=== PATIENT | female | born 1955 | race Caucasian/White ===

== ENCOUNTER 2019-08-20 12:49 | Emergency (ER) | payer MEDICARE, MEDICAID, SELFPAY ==
[2019-08-20 12:55] VITALS: BP 93/57; PULSE 84; RESP 16; TEMP 36.9; O2SAT 94; BMI 25.0
--- NOTE | 2019-08-20 13:09 | XR_ITS ---
WS: [id number] XR chest 1V portable [id number] REASON FOR EXAM: low b/p FINDINGS: Comparisons were made to October 07, 2014. In the right lung base there is evidence again of a calcified density consistent with a hamartoma abhinav radha benign granuloma unchanged since the previous exam. The heart and mediastinal interfaces were normal. Arteriosclerotic changes are seen. Lung frey are hyper aerated. XR/XR chest 1V portable [id number] IMPRESSION: Benign granuloma versus hamartoma right lower lung Negative chest for active pathology.
--- NOTE | 2019-08-20 14:29 | ED_ITS ---
Entered by Steven Antunez LPN, acting as scribe for Rd Aj DO HPI - Dizziness General: Chief Complaint: Dizziness Stated Complaint: low bp Time Seen by Provider: 08/20/19 14:29 Source: patient Mode of arrival: ambulatory (POV) Limitations: no limitations History of Present Illness: HPI Narrative: 64 yo female presents stating this am she developed a pain in her left neck, her mouth became dry, and she became dizzy, then she noted she had low BP. This started about 1030 this am. She drank a lot of water and Gatorade prior to coming to ER trying to improve symptoms. She is currently on Lisinopril 10mg for HTN, was told when BP is low to stop this for a few days. She has not stopped this recently. She does not monitor her BP regularly. She reports the last time she had symptoms like this she had been fasting for a test and her systolic BP was down to 88. During exam BP is 125/69. She denies any chest pain or sob. Associated symptoms: Denies chest pain, palpitations or syncope Review of Systems General: Reports: 10 or more systems reviewed and unremarkable except in HPI and below ENMT: Reports: dry mouth Card: Reports: lightheadedness (dizziness, low BP); Denies: chest pain, palpitations or syncope Musc: Reports: neck pain (left neck ) Neuro: Reports: dizziness PFSH ED PFSH: Social History Smoking and tobacco status: current every day smoker Physical Exam Const: COMMON NORMALS: no apparent distress, average body habitus, oriented x3, no limitations, healthy appearing, alert and well nourished HENMT: COMMON NORMALS: normocephalic, head/scalp atraumatic, hearing grossly normal bilaterally, external ears normal, EAC's normal, TM's normal bilaterally, external nose normal, nasal mucous membranes and turbinates normal, moist oral mucous membranes, oropharynx normal, dentition normal and gingiva normal HEAD & SCALP: normocephalic and atraumatic NOSE: external nose normal and nasal mucous membranes and turbinates normal EXTERNAL EAR: Yes external ears normal EXTERNAL AUDITORY CANAL: EAC's normal TYMPANIC MEMBRANE: TM's normal bilaterally Eye: COMMON NORMALS: PERRL, EOMs intact bilaterally, conjunctivae normal, no scleral icterus, no papilledema, normal visual frey by confrontation and fundi normal bilaterally CONJUNCTIVA: Yes conjunctivae normal PUPIL: Yes PERRL DIRECT OPHTHALMOSCOPY: Yes no papilledema and Yes fundi normal bilaterally Neck/C-Spine: COMMON NORMALS: full ROM, no lymphadenopathy, supple, no meningeal signs, no JVD, thyroid normal and no carotid bruits THYROID: thyroid normal Chest: COMMONS NORMALS: inspection of chest normal and palpation of chest normal Resp: COMMON NORMALS: normal respiratory effort, no retractions, no use of accessory muscles, clear to auscultation bilaterally and percussion normal AUSCULTATION: clear to auscultation bilaterally PERCUSSION: percussion normal Cardio: COMMON NORMALS: no JVD, regular rate, regular rhythm, S1 normal heart sound, S2 normal heart sound, no gallops, no clicks, no murmurs, no rub and peripheral pulses 2+ throughout RATE: regular rate RHYTHM: regular rhythm HEART SOUNDS: S1 normal and S2 normal PERIPHERAL PULSES: pulses 2+ throughout GI: COMMON NORMALS: normal to inspection, nondistended, normoactive bowel sounds, soft to palpation, non-tender, no hepatosplenomegaly, no masses and no bruits PALPATION: Yes soft and Yes no hepatosplenomegaly : COMMON NORMALS: Yes no CVA tenderness and Yes external appearance normal BLADDER/KIDNEY EXAM: Yes no CVA tenderness Back/Pelvis: COMMON NORMALS: no CVA tenderness, thoracic and lumbar spine normal to inspection, no thoracic nor lumbar tenderness, thoraco-lumbar ROM normal and straight leg raise negative bilaterally Extremity: COMMON NORMALS: normal to inspection, full ROM, normal capillary refill, no joint enlargement, no clubbing, cyanosis or edema, no calf tenderness and no pedal edema Neuro: COMMON NORMALS: oriented x3 SENSORIUM/ORIENTATION: Yes alert MENINGEAL SIGNS: Yes no meningeal signs Skin: COMMON NORMALS: no rashes or lesions noted, no wounds, skin turgor normal, no jaundice, no petechiae and no mottling GENERAL SKIN EXAM: no rashes or lesions noted and turgor normal Course ED course: 1447: Advised pt take Lisinopril 5mg daily at this time. Counseled not to stop her BP med abruptly and use it as needed, she needs to discuss med changes with her PCP when she is having issues with her BP. Vital Signs: Vital signs: Vital Signs Temperature 98.4 F 08/20/19 12:55 Pulse Rate 78 08/20/19 16:29 Respiratory Rate 16 08/20/19 12:55 Blood Pressure 117/70 08/20/19 16:29 Pulse Oximetry 98 08/20/19 16:29 MDM - Dizziness Lab Data: Attestation: I reviewed the patient's lab results. Labs: Lab Results 08/20/19 08/20/19 08/20/19 Range/Units 14:12 14:12 14:12 WBC 9.6 (4.0-10.0) 10^3/ uL RBC 4.39 (4.1-5.3) 10^6/u L Hgb 12.5 (11.5-15.3) g/dL Hct 38.7 (37.0-47.0) % MCV 88.2 (81-99) fL MCH 28.5 (28.0-34.0) pg MCHC 32.3 (30.0-36.0) g/dL RDW 12.6 (12.1-15.1) % Plt Count 267 (130-400) 10^3/c mm MPV 9.6 (7.4-10.4) fL Neut % (Auto) 79.4 % Lymph % (Auto) 13.2 % [place] % (Auto) 5.0 % Eos % (Auto) 1.5 % Baso % (Auto) 0.6 % Neut # (Auto) 7.6 (1.8-7.7) 10^3/u L Lymph # (Auto) 1.3 (0.8-4.8) 10^3/u L [place] # (Auto) 0.5 (0.2-0.9) 10^3/u L Eos # (Auto) 0.1 (0.0-0.8) 10^3/u L Baso # (Auto) 0.1 (0.0-0.1) 10^3/u L Nucleated RBC % (a uto) 0 % Nucleated RBCs # 0.0 /100WBC Sodium 135 L (136-145) mmol/L Potassium 4.2 (3.5-5.1) mmol/L Chloride 98 (98-107) mmol/L Carbon Dioxide 25 (22-29) mmol/L Anion Gap 16.2 (5-19) BUN 11 (8-23) mg/dL Creatinine 0.8 (0.5-0.9) mg/dL GFR Calculation 71.8 L (90-130) mL/min Glucose 113 (65-115) mg/dL Lactate (0.5-2.2) mmol/L Calcium 9.8 (8.5-10.5) mg/dL Total Bilirubin 0.3 (0.15-1.2) mg/dL AST 14 (0-32) U/L ALT 11 (0-33) U/L Alkaline Phosphata se 73 (35-105) IU/L Troponin T Baselin e 6 (0-10) ng/mL Troponin T 120 Min fatoumata (0-10) ng/mL Total Protein 7.0 (6.6-8.7) g/dL Albumin 4.2 (3.5-5.2) g/dL Globulin 2.8 (1.3-4.6) g/dL 08/20/19 08/20/19 Range/Units 15:14 16:17 WBC (4.0-10.0) 10^3/ uL RBC (4.1-5.3) 10^6/u L Hgb (11.5-15.3) g/dL Hct (37.0-47.0) % MCV (81-99) fL MCH (28.0-34.0) pg MCHC (30.0-36.0) g/dL RDW (12.1-15.1) % Plt Count (130-400) 10^3/c mm MPV (7.4-10.4) fL Neut % (Auto) % Lymph % (Auto) % [place] % (Auto) % Eos % (Auto) % Baso % (Auto) % Neut # (Auto) (1.8-7.7) 10^3/u L Lymph # (Auto) (0.8-4.8) 10^3/u L [place] # (Auto) (0.2-0.9) 10^3/u L Eos # (Auto) (0.0-0.8) 10^3/u L Baso # (Auto) (0.0-0.1) 10^3/u L Nucleated RBC % (a uto) % Nucleated RBCs # /100WBC Sodium (136-145) mmol/L Potassium (3.5-5.1) mmol/L Chloride (98-107) mmol/L Carbon Dioxide (22-29) mmol/L Anion Gap (5-19) BUN (8-23) mg/dL Creatinine (0.5-0.9) mg/dL GFR Calculation (90-130) mL/min Glucose (65-115) mg/dL Lactate 0.7 (0.5-2.2) mmol/L Calcium (8.5-10.5) mg/dL Total Bilirubin (0.15-1.2) mg/dL AST (0-32) U/L ALT (0-33) U/L Alkaline Phosphata se (35-105) IU/L Troponin T Baselin e (0-10) ng/mL Troponin T 120 Min fatoumata 6.00 (0-10) ng/mL Total Protein (6.6-8.7) g/dL Albumin (3.5-5.2) g/dL Globulin (1.3-4.6) g/dL Imaging Data^: CXR: Radiologist's impression: IMPRESSION: Benign granuloma versus hamartoma right lower lung Negative chest for active pathology. Dictated By:Brant Hernandez DO EKG Data^: EKG 1: Attestation: I personally reviewed and interpreted this EKG as follows: Interpretation: 1305 NSR at 84bpm Normal EKG. Discharge Plan Discharge Patient Disposition: Home, Self-Care Clinical Impression: Benign paroxysmal positional vertigo Qualifiers: Laterality: bilateral Qualified Code(s): H81.13 - Benign paroxysmal vertigo, bilateral Condition: Stable Prescriptions: No Action aspirin 325 mg Tablet 325 mg PO PRN RF: 0 ibuprofen 800 mg tablet 800 mg PO TID PRN (Reason: Pain) RF: 0 famotidine 40 mg tablet 40 mg PO DAILY RF: 0 tramadol 50 mg tablet 50 - 100 mg PO BID PRN (Reason: Pain) RF: 0 potassium chloride 20 mEq/15 mL liquid See Rx Instructions .ROUTE .COMPLEX RF: 0 benzonatate 100 mg capsule 100 mg PO TID PRN (Reason: Cough) RF: 0 lisinopril-hydrochlorothiazide 10-12.5 mg tablet 1 tab PO DAILY RF: 0 albuterol sulfate 90 mcg/actuation HFA aerosol inhaler 2 puff INHALATION Q4H PRN (Reason: Wheezing) RF: 0 Incruse Ellipta 62.5 mcg/actuation blister with device 1 inh INHALATION DAILY RF: 0 Discharge Orders: Discharge Order (Routine); Ordered 08/20/19 Ordered By: Rd Aj Referrals: Delaney Patricia [Primary Care Provider] - Coding Level of Care Code ED First Aid Attendant for Chg Fwd Exam Comprehensive The documentation recorded by the Tulio lee Dani Elizabeth, LPN, accurately reflects the service I personally performed and the decisions made by Madai villagomez Donald P, Aug 20, 2019 12:49
[2019-08-20 14:41] LABS: Basophils # 0.1 10^3/uL (0.0-0.1); Basophils % 0.6 %; Eosinophils # 0.1 10^3/uL (0.0-0.8); Eosinophils % 1.5 %; Hematocrit 38.7 % (37.0-47.0); Hemoglobin 12.5 g/dL (11.5-15.3); Lymphocytes # 1.3 10^3/uL (0.8-4.8); Lymphocytes % 13.2 %; Mean Corpuscular HGB Conc 32.3 g/dL (30.0-36.0); Mean Corpuscular Hemoglobin 28.5 pg (28.0-34.0); Mean Corpuscular Volume 88.2 fL (81-99); Mean Platelet Volume 9.6 fL (7.4-10.4); Monocytes # 0.5 10^3/uL (0.2-0.9); Neutrophils # 7.6 10^3/uL (1.8-7.7); Neutrophils % 79.4 %; Nucleated Red Blood Cells % 0 %; Platelet Count 267 10^3/cmm (130-400); Red Blood Count 4.39 10^6/uL (4.1-5.3); Red Cell Distribution Width 12.6 % (12.1-15.1); White Blood Count 9.6 10^3/uL (4.0-10.0)
--- NOTE | 2019-08-20 14:41 | PC.NURSE ---
Orthostatic vitals: Supine BP 96/59 HR 86, Seated: BP 103/66 HR 84, Standing BP 94/65 HR 89.
--- NOTE | 2019-08-20 14:43 | PC.NURSE ---
PHYSICAL ASSESSMENT Chief Complaint: Dizzy GENERAL / NEURO / PSYCH: Alert and oriented x 4 EVY COMA SCORE: 15 HEENT: No facial asymmetry noted. Mucous membranes are pink. RESPIRATORY: Denies complaints CVS: Capillary refill less than 2 seconds. Pulses within normal limits. GI / : Abdomen soft and nontender and normal bowel sounds. SKIN: Skin intact. Skin is warm and dry. Normal skin turgor. - Patient resting at this time. No needs.
[2019-08-20 15:00] LABS: Alanine Aminotransferase 11 U/L (0-33); Albumin Level 4.2 g/dL (3.5-5.2); Alkaline Phosphatase 73 IU/L (35-105); Anion Gap 16.2 (5-19); Aspartate Amino Transferase 14 U/L (0-32); Blood Urea Nitrogen 11 mg/dL (8-23); Calcium 9.8 mg/dL (8.5-10.5); Carbon Dioxide 25 mmol/L (22-29); Chloride 98 mmol/L (98-107); Globulin 2.8 g/dL (1.3-4.6); Glomerular Filtration Rate 71.8 mL/min (90-130); Glucose 113 mg/dL (65-115); Potassium 4.2 mmol/L (3.5-5.1); Sodium 135 mmol/L (136-145); Total Bilirubin 0.3 mg/dL (0.15-1.2)
[2019-08-20] MEDS: sodium chloride 0.9% 1,000 ML 999 ML IV (15:18)
[2019-08-20 15:27] LABS: Troponin(5th) Baseline 6 ng/mL (0-10)
[2019-08-20 15:32] LABS: Lactate (Lactic Acid level) 0.7 mmol/L (0.5-2.2)
[2019-08-20 16:29] VITALS: BP 117/70; PULSE 78; O2SAT 98
[2019-08-20 16:42] LABS: Troponin 5 2HR Delta 0 ABS# (0-10)
[2019-08-20 16:58] VITALS: BP 145/75; PULSE 75; RESP 16; O2SAT 98
== END 2019-08-20 16:59 | disposition home or self-care (01) ==
PROVIDERS: Nurse Practitioner Family; Emergency Provider Family Medicine; Family Provider Family Medicine; PCP Family Medicine
DX: H81.13 Benign paroxysmal vertigo, bilateral (principal); I10 Essential (primary) hypertension; F17.200 Nicotine dependence, unspecified, uncomplicated
CPT/HCPCS: 36415; 71045; 80053; 83605; 84484; 85025; 96360; 99282; 99284; J7030

== ENCOUNTER 2019-09-09 10:35 | Inpatient (IN) | payer MEDICARE, MEDICAID, SELFPAY ==
[2019-09-09] VITALS (28 sets, daily range): BP systolic 84–115; BP diastolic 46–75; PULSE 82–120; RESP 18–30; TEMP 36.6–36.9; O2SAT 93–100; BMI 25.8
--- NOTE | 2019-09-09 10:49 | ED_ITS ---
Entered by Diane Cha, acting as scribe for Arjun Mckeon DO HPI - SOB/Dyspnea General: Chief Complaint: Shortness of Breath/Dyspnea Stated Complaint: cough/sob/fever Time Seen by Provider: 09/09/19 10:48 Source: patient Mode of arrival: EMS Limitations: no limitations History of Present Illness: HPI Narrative: 64 yo female presents with shortnes s of breath and cough. pt states this started 2-3 days ago. pt states taking deep breaths, coughing and exertion makes this worse and nothing makes it better. pt denies any other symptoms at this time. MD elicited complaint: shortness of breath and cough Onset (ago): day(s) (2-3) Timing: constant and progressively worsening Severity: moderate Exacerbating factors: exertion, coughing and deep breaths Relieving factors: nothing Associated symptoms: Reports cough; Deny abdominal pain, chest pain, fever(s), nausea or vomiting Treatment prior to arrival: none Review of Systems General: Reports: 10 or more systems reviewed and unremarkable except in HPI and below Const: Denies: fever, chills, body aches, change in appetite, fatigue or malaise ENMT: Denies: throat pain, ear pain, nasal discharge or nasal congestion Card: Denies: chest pain or edema Resp: Reports: shortness of breath and productive cough GI: Denies: abdominal pain, nausea, vomiting, vomiting blood, coffee grounds in vomit, diarrhea, constipation, bloating, blood in stool or black tarry stool : Denies: flank pain, difficulty urinating, painful urination, urinary frequency or urinary urgency Skin/Breast: Denies: rash or itching PFS ED PFSH: Medical History (Updated 09/13/19 @ 10:36 by Arjun Mckeon DO) COPD (chronic obstructive pulmonary disease) Hypertension Tobacco abuse Surgical History (Updated 09/09/19 @ 18:26 by Vanda Bullock DO) History of appendectomy History of cataract surgery Family History (Updated 09/09/19 @ 18:26 by Vanda Bullock DO) Mother CAD (coronary artery disease) Social History (Updated 09/09/19 @ 18:27 by Vanda Bullock DO) Smoking and tobacco status: current every day smoker Alcohol intake: never Substance/Drug Use: never Physical Exam Const: COMMON NORMALS: no apparent distress GENERAL APPEARANCE: cooperative and comfortable ORIENTATION/CONSCIOUSNESS: Yes awake, Yes oriented to person, Yes oriented to place and Yes oriented to time HENMT: COMMON NORMALS: normocephalic, head/scalp atraumatic, hearing grossly normal bilaterally, external ears normal, EAC's normal, TM's normal bilaterally, nasal mucous membranes and turbinates normal, moist oral mucous membranes and oropharynx normal HEAD & SCALP: normocephalic and atraumatic NOSE: nasal mucous membranes and turbinates normal EXTERNAL EAR: Yes external ears normal EXTERNAL AUDITORY CANAL: EAC's normal TYMPANIC MEMBRANE: TM's normal bilaterally Eye: COMMON NORMALS: PERRL, EOMs intact bilaterally, conjunctivae normal and no scleral icterus CONJUNCTIVA: Yes conjunctivae normal PUPIL: Yes PERRL Neck/C-Spine: COMMON NORMALS: full ROM, no lymphadenopathy, supple and no JVD Lymph: LYMPHATIC: no lymphadenopathy noted and no lymphedema noted Cardio: COMMON NORMALS: no JVD, regular rate, regular rhythm and no murmurs RATE: regular rate RHYTHM: regular rhythm GI: COMMON NORMALS: soft to palpation and no hepatosplenomegaly AUSCULTATION: Yes normoactive bowel sounds PALPATION: Yes soft, No tender, No guarding and Yes no hepatosplenomegaly Extremity: COMMON NORMALS: normal to inspection, normal capillary refill, no clubbing, cyanosis or edema, no calf tenderness and no pedal edema Neuro: SENSORIUM/ORIENTATION: Yes oriented to person, Yes oriented to place and Yes oriented to time Skin: COMMON NORMALS: no rashes or lesions noted GENERAL SKIN EXAM: no rashes or lesions noted Course Vital Signs: Vital signs: Vital Signs Temperature 98.0 F 09/11/19 11:00 Pulse Rate 85 09/11/19 11:26 Respiratory Rate 17 09/11/19 11:26 Blood Pressure 118/80 09/11/19 11:00 Pulse Oximetry 98 09/11/19 11:26 MDM - SOB/Dyspnea MDM Narrative: Medical decision making narrative: Reviewed findings with the patient. She has a community-acquired pneumonia with exacerbation of her COPD. She will be on precautions she is being tested for COVID-19. D[address] Bullock she will assume care on the floor. Lab Data: Labs: Lab Results 09/09/19 09/09/19 09/09/19 Range/Units 10:41 10:41 11:15 WBC 17.5 H (4.0-10.0) 10^3/ uL RBC 4.51 (4.1-5.3) 10^6/u L Hgb 13.2 (11.5-15.3) g/dL Hct 40.5 (37.0-47.0) % MCV 89.8 (81-99) fL MCH 29.3 (28.0-34.0) pg MCHC 32.6 (30.0-36.0) g/dL RDW 12.6 (12.1-15.1) % Plt Count 284 (130-400) 10^3/c mm MPV 10.3 (7.4-10.4) fL Neut % (Auto) 86.1 % Lymph % (Auto) 4.7 % [place] % (Auto) 3.6 % Eos % (Auto) 4.7 % Baso % (Auto) 0.5 % Neut # (Auto) 15.1 H (1.8-7.7) 10^3/u L Lymph # (Auto) 0.8 (0.8-4.8) 10^3/u L [place] # (Auto) 0.6 (0.2-0.9) 10^3/u L Eos # (Auto) 0.8 (0.0-0.8) 10^3/u L Baso # (Auto) 0.1 (0.0-0.1) 10^3/u L Nucleated RBC % (a uto) 0 % Nucleated RBCs # 0.0 /100WBC Sodium 135 L (136-145) mmol/L Potassium 3.5 (3.5-5.1) mmol/L Chloride 96 L (98-107) mmol/L Carbon Dioxide 25 (22-29) mmol/L Anion Gap 17.5 (5-19) BUN 13 (8-23) mg/dL Creatinine 0.9 (0.5-0.9) mg/dL GFR Calculation 62.6 L (90-130) mL/min Glucose 118 H (65-115) mg/dL Calculated Osmolal ity 277 L (285-295) mOsm/k g Lactate (0.5-2.2) mmol/L Calcium 10.0 (8.5-10.5) mg/dL Total Bilirubin 0.7 (0.15-1.2) mg/dL AST 12 (0-32) U/L ALT 13 (0-33) U/L Alkaline Phosphata se 75 (35-105) IU/L Total Protein 7.1 (6.6-8.7) g/dL Albumin 3.8 (3.5-5.2) g/dL Globulin 3.3 (1.3-4.6) g/dL Urine Color Yellow (Yellow) Urine Appearance Clear (CLEAR) Urine pH 5 (5-7) Ur Specific Gravit y 1.010 (1.005-1.030) Urine Protein Neg (Negative) Urine Glucose (UA) Norm (Normal) Urine Ketones Negative (Negative) Urine Blood Neg (Negative) Urine Nitrate Negative (Negative) Urine Bilirubin Neg (NEGATIVE) Urine Urobilinogen Norm (Negative) mg/dL Ur Leukocyte Jaimie ase Negative (Negative) Nasal/Oral COVID-1 9 PCR Influenza Type A A g (Negative) POC Influenza B Ag (Negative) 09/09/19 09/09/19 09/09/19 Range/Units 11:20 12:40 13:00 WBC (4.0-10.0) 10^3/ uL RBC (4.1-5.3) 10^6/u L Hgb (11.5-15.3) g/dL Hct (37.0-47.0) % MCV (81-99) fL MCH (28.0-34.0) pg MCHC (30.0-36.0) g/dL RDW (12.1-15.1) % Plt Count (130-400) 10^3/c mm MPV (7.4-10.4) fL Neut % (Auto) % Lymph % (Auto) % [place] % (Auto) % Eos % (Auto) % Baso % (Auto) % Neut # (Auto) (1.8-7.7) 10^3/u L Lymph # (Auto) (0.8-4.8) 10^3/u L [place] # (Auto) (0.2-0.9) 10^3/u L Eos # (Auto) (0.0-0.8) 10^3/u L Baso # (Auto) (0.0-0.1) 10^3/u L Nucleated RBC % (a uto) % Nucleated RBCs # /100WBC Sodium (136-145) mmol/L Potassium (3.5-5.1) mmol/L Chloride (98-107) mmol/L Carbon Dioxide (22-29) mmol/L Anion Gap (5-19) BUN (8-23) mg/dL Creatinine (0.5-0.9) mg/dL GFR Calculation (90-130) mL/min Glucose (65-115) mg/dL Calculated Osmolal ity (285-295) mOsm/k g Lactate 1.7 (0.5-2.2) mmol/L Calcium (8.5-10.5) mg/dL Total Bilirubin (0.15-1.2) mg/dL AST (0-32) U/L ALT (0-33) U/L Alkaline Phosphata se (35-105) IU/L Total Protein (6.6-8.7) g/dL Albumin (3.5-5.2) g/dL Globulin (1.3-4.6) g/dL Urine Color (Yellow) Urine Appearance (CLEAR) Urine pH (5-7) Ur Specific Gravit y (1.005-1.030) Urine Protein (Negative) Urine Glucose (UA) (Normal) Urine Ketones (Negative) Urine Blood (Negative) Urine Nitrate (Negative) Urine Bilirubin (NEGATIVE) Urine Urobilinogen (Negative) mg/dL Ur Leukocyte Jaimie ase (Negative) Nasal/Oral COVID-1 9 PCR Not detected Influenza Type A A g Negative (Negative) POC Influenza B Ag Negative (Negative) Imaging Data^: CXR: Radiologist's impression: [place] [address] XRay Report Signed Patient: Eleni Hanson #: [id number] : 3Acct#:[id number] Age/Sex: 64 / FADM Date: 09/09/19 Loc: ERRoom/Bed: Attending Dr: Ordering Provider/Ordering MD: Arjun Mckeon DO Date of Service: 09/09/19 Procedure(s): XR chest 1V portable [id number] Accession Number(s): [id number] Report Number: [id number] PROCEDURE INFORMATION: Exam: XR Chest, 1 View Exam date and time: 09/09/2019 11:29 AM Age: 64 years old Clinical indication: Chest pain; Type not specified; Additional info: Dyspnea/cough TECHNIQUE: Imaging protocol: XR of the chest Views: 1 view. COMPARISON: CR XR chest 1V portable [id number] 08/20/2019 1:16 PM FINDINGS: Lungs: There is a calcified granuloma in the right lung base. Architectural changes in both lungs suggesting COPD. Minimal left basilar airspace disease for which atelectasis is favored. No focal peripheral lung consolidation, air bronchogram formation, or silhouette sign. Pleural space: No pleural effusion or pneumothorax. Heart/Mediastinum: The cardiac silhouette is not enlarged. The mediastinal contours are normal. Bones/joints: No acute osseous abnormality. XR/XR chest 1V portable [id number] IMPRESSION: Favor left basilar atelectasis. Prior granulomatous disease. Dictated By:John Cooney Signed By:Vito Cooney Date/Time:09/09/19 1143 Discharge Plan Discharge Patient Disposition: Admitted As Inpatient Admit Provider: Vanda Bullock Clinical Impression: Community acquired pneumonia, COPD (chronic obstructive pulmonary disease), Tobacco abuse Condition: Stable Discharge Orders: Discharge Order (Routine); Ordered 09/11/19 Ordered By: Vanda Bullock Referrals: Delaney Patricia [Primary Care Provider] - 09/16/19 11:15 am Discharge Diet: Usual diet Discharge Activity: Increase activity as tolerated Patient Instructions: COPD, Nicotine (Absorbed through the skin), Levofloxacin (By mouth), Hypertension, How to Stop Smoking (DC), Community-acquired Pneumonia (DC), COPD Stoplight, Pneumonia Stoplight Additional Instructions: Strongly encouraged tobacco cessation. Discussed and counseled with patient the need for tobacco cessation to prevent any future lung damage from smoking. Nicotine patches prescribed Continue with albuterol treatments as needed, every 4-6 hours for shortness of breath Started on Levaquin 750 mg daily for an additional 5 days Hold on lisinopril/HCTZ at this time until follow-up with primary care provider Interventions: ED Discharge Assessment Last Done: 09/09/19 17:03 Discharge Date/Time: 09/09/19 17:42 Coding Level of Care Code ED Clinical Training Specialist for Chg Fwd Exam Comprehensive The documentation recorded by the Semaj lee Bridget Annette, accurately reflects the service I personally performed and the decisions made by , H Arjun angulo, DO Sep 09, 2019 10:35
--- NOTE | 2019-09-09 11:02 | XRR_ITS ---
PROCEDURE INFORMATION: Exam: XR Chest, 1 View Exam date and time: 09/09/2019 11:29 AM Age: 64 years old Clinical indication: Chest pain; Type not specified; Additional info: Dyspnea/cough TECHNIQUE: Imaging protocol: XR of the chest Views: 1 view. COMPARISON: CR XR chest 1V portable [id number] 08/20/2019 1:16 PM FINDINGS: Lungs: There is a calcified granuloma in the right lung base. Architectural changes in both lungs suggesting COPD. Minimal left basilar airspace disease for which atelectasis is favored. No focal peripheral lung consolidation, air bronchogram formation, or silhouette sign. Pleural space: No pleural effusion or pneumothorax. Heart/Mediastinum: The cardiac silhouette is not enlarged. The mediastinal contours are normal. Bones/joints: No acute osseous abnormality. XR/XR chest 1V portable [id number] IMPRESSION: Favor left basilar atelectasis. Prior granulomatous disease.
--- NOTE | 2019-09-09 11:03 | ECG_ITS ---
Measurements Intervals [place] Rate: 116 P: 74 IN: 151 QRS: 90 QRSD: 88 T: 59 QT: 337 QTc: [address] & T-WAVE ABNORMALITY ABNORMAL RHYTHM ECG INTERPRETATION BASED ON A DEFAULT AGE OF 40 YEARS No previous ECG available for comparison Electronically Signed On 09-09-2019 19:23:06 CDT by Joyce Mckenzie M.D. [email or web address]
[2019-09-09 11:14] LABS: Basophils # 0.1 10^3/uL (0.0-0.1); Basophils % 0.5 %; Eosinophils # 0.8 10^3/uL (0.0-0.8); Eosinophils % 4.7 %; Hematocrit 40.5 % (37.0-47.0); Hemoglobin 13.2 g/dL (11.5-15.3); Lymphocytes # 0.8 10^3/uL (0.8-4.8); Lymphocytes % 4.7 %; Mean Corpuscular HGB Conc 32.6 g/dL (30.0-36.0); Mean Corpuscular Hemoglobin 29.3 pg (28.0-34.0); Mean Corpuscular Volume 89.8 fL (81-99); Mean Platelet Volume 10.3 fL (7.4-10.4); Monocytes # 0.6 10^3/uL (0.2-0.9); Monocytes % 3.6 %; Neutrophils # 15.1 10^3/uL (1.8-7.7); Neutrophils % 86.1 %; Nucleated Red Blood Cells % 0 %; Platelet Count 284 10^3/cmm (130-400); Red Blood Count 4.51 10^6/uL (4.1-5.3); Red Cell Distribution Width 12.6 % (12.1-15.1); White Blood Count 17.5 10^3/uL (4.0-10.0)
[2019-09-09] MEDS: sodium chloride 0.9% 1,000 ML 999 ML IV (11:21)
[2019-09-09 11:24] LABS: Add Urine Microscopic? NO
[2019-09-09 11:27] LABS: Bilirubin Urine Neg (NEGATIVE); Blood Urine Neg (Negative); Glucose Urine UA Norm (Normal); Ketones Urine Negative (Negative); Leukocyte Esterase Urine Negative (Negative); Nitrate Urine Negative (Negative); Protein Urine Neg (Negative); Urine Appearance Clear (CLEAR); Urine Color Yellow (Yellow); Urobilinogen Urine Norm (Negative); pH Urine 5 (5-7)
[2019-09-09 11:34] LABS: Alanine Aminotransferase 13 U/L (0-33); Albumin Level 3.8 g/dL (3.5-5.2); Alkaline Phosphatase 75 IU/L (35-105); Anion Gap 17.5 (5-19); Aspartate Amino Transferase 12 U/L (0-32); Blood Urea Nitrogen 13 mg/dL (8-23); Carbon Dioxide 25 mmol/L (22-29); Chloride 96 mmol/L (98-107); Globulin 3.3 g/dL (1.3-4.6); Glomerular Filtration Rate 62.6 mL/min (90-130); Glucose 118 mg/dL (65-115); Osmolality Calculated 277 mOsm/kg (285-295); Potassium 3.5 mmol/L (3.5-5.1); Sodium 135 mmol/L (136-145); Total Bilirubin 0.7 mg/dL (0.15-1.2); Total Protein 7.1 g/dL (6.6-8.7)
[2019-09-09] MEDS: ipratropium-albuterol 3 mL Neb INHALATION ×2 (11:47→20:45)
[2019-09-09 11:56] LABS: Lactate (Lactic Acid level) 1.7 mmol/L (0.5-2.2)
[2019-09-09] MEDS: levofloxacin-dextrose 5 % 750 MG/150 ML PREMIX 150 MG IV (12:12)
--- NOTE | 2019-09-09 12:46 | PC.PHAR ---
PT STATES SHE IS TAKING AN ANITBIOTIC FOR UTI, SHE DOESN'T KNOW WHAT STRENGTH.
[2019-09-09 13:30] LABS: Influenza A by IFA Negative (Negative); Influenza B by IFA Negative (Negative)
--- NOTE | 2019-09-09 15:09 | P.HP_ITS ---
Providers/Chief Complaint Admitting Physician: Vanda Bullock DO Primary Care Provider: Delaney Patricia Chief Complaint: cough/sob/fever History of Present Illness Eleni Hanson is a 64 year old female that presented to the emergency department today for shortness of breath. She reported increased cough and shortness of breath that have been progressive over the past week. She denies any fevers that she is aware of, reports no recent travel or known exposure to COVID-19. She denies any chest pain or palpitations. She reports that she does not wear oxygen at home. She was told that she probably needed oxygen in the past, however she was never tested for home oxygen evaluation as she continued to smoke 1-2 packs/day. Patient was seen and evaluated in the emergency department noted to have concern for hypoxia requiring 5 L of oxygen by nasal cannula with concern for pneumonia, due to concern for bilateral pneumonia along with dyspnea she was tested for COVID-19 Review of Systems Const: Denies: fever or chills Eyes: Denies: change in vision ENMT: Denies: nasal congestion Card: Denies: chest pain, palpitations or edema Resp: Reports: shortness of breath and productive cough; Denies: coughing up blood GI: Denies: abdominal pain, nausea, vomiting, diarrhea, constipation, blood in stool or black tarry stool : Denies: painful urination or blood in urine Musc: Denies: extremity pain or muscle cramps Skin/Breast: Denies: rash or new lesion Neuro: Denies: headache or dizziness Psych: Denies: anxiety or depression Endo: Denies: excessive urination or hot flashes Santos/Lymph: Denies: easy bruising or easy bleeding Medications/Allergies Home Medications Medication Instructions Recorded Confirmed Last Taken Type cholecalciferol (vitamin D3) See Rx Instructions .ROUTE .COMPLEX 09/09/19 09/09/19 09/09/19 History [Vitamin D3] Allergies Allergy/AdvReac Type Severity Reaction Status Date / Time bacitracin Allergy ALGY-Hives Verified 08/20/19 12:55 [From Neosporin ([id number])] clarithromycin [From Biaxin] Allergy ALGY-Hives Verified 08/20/19 12:55 codeine Allergy ALGY-Hives Verified 08/20/19 12:55 iodine Allergy ALGY-Hives Verified 08/20/19 12:55 neomycin Allergy ALGY-Hives Verified 08/20/19 12:55 [From Neosporin ([id number])] Penicillins Allergy ALGY-Hives Verified 08/20/19 12:55 polymyxin B Allergy ALGY-Hives Verified 08/20/19 12:55 [From Neosporin ([id number])] PFSH Acute PFSH: Medical History (Updated 09/09/19 @ 18:26 by Vanda Bullock DO) COPD (chronic obstructive pulmonary disease) Hypertension Tobacco abuse Surgical History (Updated 09/09/19 @ 18:26 by Vanda Bullock DO) History of appendectomy History of cataract surgery Family History (Updated 09/09/19 @ 18:26 by Vanda Bullock DO) Mother CAD (coronary artery disease) Social History (Updated 09/09/19 @ 18:27 by Vanda Bullock DO) Smoking and tobacco status: current every day smoker Alcohol intake: never Substance/Drug Use: never Vitals/I&O/Wt Last Vital Signs Temp 98.4 F 09/09/19 10:36 Pulse 106 H 09/09/19 14:15 Resp 22 H 09/09/19 14:15 BP 100/61 09/09/19 14:15 Pulse Ox 95 09/09/19 14:15 Weight last 48 hrs Weight 77.111 kg Physical Exam Const: COMMON NORMALS: oriented x3 and alert GENERAL APPEARANCE: cooperative ORIENTATION/CONSCIOUSNESS: Yes awake, Yes oriented to person, Yes oriented to place and Yes oriented to time HENMT: COMMON NORMALS: normocephalic and head/scalp atraumatic HEAD & SCALP: normocephalic and atraumatic Eye: COMMON NORMALS: PERRL PUPIL: Yes PERRL Neck/C-Spine: COMMON NORMALS: supple GENERAL: Yes normal visual inspection Resp: EFFORT & INSPECTION: Yes tachypneic and Yes actively coughing AUSCULTATION: wheezes OTHER: Diminished breath sounds bilaterally with prolonged expiratory phase and expiratory wheezing Cardio: COMMON NORMALS: no murmurs RATE: tachycardic RHYTHM: regular rhythm GI: COMMON NORMALS: soft to palpation and non-tender INSPECTION: No abdominal distension AUSCULTATION: Yes normoactive bowel sounds PALPATION: Yes soft Extremity: COMMON NORMALS: no clubbing, cyanosis or edema and no calf tenderness Neuro: COMMON NORMALS: oriented x3, CN's II-XII intact bilaterally, moves all extremities and no focal motor deficits SENSORIUM/ORIENTATION: Yes alert, Yes oriented to person, Yes oriented to place and Yes oriented to time SPEECH: speech normal Psych: COMMON NORMALS: mental status grossly normal and cooperative Skin: COMMON NORMALS: no rashes or lesions noted GENERAL SKIN EXAM: no rashes or lesions noted Data : 09/09/19 10:41 09/09/19 10:41 Micro: Microbiology 09/09/19 11:20 Blood Culture - Preliminary Blood SPECIMEN COLLECTED 09/09/19 11:22 Blood Culture - Preliminary Blood SPECIMEN COLLECTED A&P Assessment and plan (1) Community acquired pneumonia: Continue on Levaquin Respiratory therapy to assess and treat Oxygen per protocol Admit to ICU for close monitoring due to patient requiring 5 to 6 L of oxygen by nasal cannula, wean until oxygen saturation around 90 to 92%. Also concern for viral pneumonia, tested for COVID-19 in the ER. Continue with contact and droplet precautions. For any high flow nasal cannula use, BiPAP or CPAP use will place on airborne precautions Status: Acute Code(s): J18.9 - Pneumonia, unspecified organism (2) Hypertension: Holding home antihypertensives due to soft blood pressures Status: Acute Code(s): I10 - Essential (primary) hypertension (3) COPD (chronic obstructive pulmonary disease): With acute exacerbation. Continue with IV antibiotics due to concern for pneumonia. Will hold off on steroids at this time and continue to monitor respiratory status closely. Due to concern for the possibility of viral pneumonia will hold off on steroids, if any continued worsening wheezing or respiratory status will add steroids for further management Status: Acute Code(s): J44.9 - Chronic obstructive pulmonary disease, unspecified (4) Tobacco abuse: strongly encourage cessation Status: Acute Code(s): Z72.0 - Tobacco use Additional A&P Information Concern for viral pneumonia: COVID -19 ordered and pending DVT prophylaxis: Lovenox Diet: Regular CODE STATUS: Full code Attestations Medical Necessity Statement*: Patient requires hospitalization due to concern for hypoxemia with pneumonia, expected stay greater than 2 midnights Coding Level of Care Code Acute Healthcare Economics Manager for [facility] Diagnoses Community acquired pneumonia J18.9 Hypertension I10 COPD (chronic obstructive pulmonary disease) J44.9 Tobacco abuse Z72.0
[2019-09-09] MEDS: sodium chloride 0.9% 1,000 ML 100 ML IV (18:20)
[2019-09-09] MEDS: enoxaparin 40 mg/0.4 mL Syringe SUBCUT (21:08)
[2019-09-10] VITALS (12 sets, daily range): BP systolic 90–125; BP diastolic 44–83; PULSE 68–95; RESP 17–26; TEMP 36.4–36.9; O2SAT 95–98
[2019-09-10 04:22] LABS: Basophils % 0.1 %; Hematocrit 35.7 % (37.0-47.0); Hemoglobin 11.6 g/dL (11.5-15.3); Lymphocytes # 1.2 10^3/uL (0.8-4.8); Lymphocytes % 10.4 %; Mean Corpuscular HGB Conc 32.5 g/dL (30.0-36.0); Mean Corpuscular Hemoglobin 29.4 pg (28.0-34.0); Mean Corpuscular Volume 90.6 fL (81-99); Mean Platelet Volume 9.7 fL (7.4-10.4); Monocytes # 0.2 10^3/uL (0.2-0.9); Monocytes % 2.1 %; Neutrophils # 9.8 10^3/uL (1.8-7.7); Neutrophils % 86.9 %; Nucleated Red Blood Cells % 0 %; Platelet Count 293 10^3/cmm (130-400); Red Blood Count 3.94 10^6/uL (4.1-5.3); Red Cell Distribution Width 12.3 % (12.1-15.1); White Blood Count 11.3 10^3/uL (4.0-10.0)
[2019-09-10 04:42] LABS: Anion Gap 16.4 (5-19); Blood Urea Nitrogen 12 mg/dL (8-23); Calcium 9.2 mg/dL (8.5-10.5); Carbon Dioxide 23 mmol/L (22-29); Chloride 104 mmol/L (98-107); Creatinine Clr Calc Pharmacy 75.5503; Glomerular Filtration Rate 83.7 mL/min (90-130); Glucose 156 mg/dL (65-115); Osmolality Calculated 289 mOsm/kg (285-295); Potassium 3.4 mmol/L (3.5-5.1); Sodium 140 mmol/L (136-145)
--- NOTE | 2019-09-10 06:25 | PC.NURSE ---
SHIFT SUMMARY PT HAS REMAINED ALERT AND ORIENTATED. PT HAS BEEN AFEBRILE THROUGH OUT THE SHIFT. PT HAS HAD ADEQUATE URINE OUTPUT. PT IV REMAINS PATENT. NO RESPIRATORY DISTRESS OCCURRED THUS FAR IN SHIFT. PT STATES SHE JUST WANTS TO GO HOME, SHE DOESNT HAVE COVID NURSE REINFORCED THE IMPORTANCE OF TESTING AND THE SAFETY OF HER AND THE ONES AROUND HER.
[2019-09-10] MEDS: sodium chloride 0.9% 1,000 ML 100 ML IV (06:31)
[2019-09-10] MEDS: famotidine 20 mg Tablet 40 MG PO (08:18)
[2019-09-10] MEDS: bisacodyl 5 mg Tablet 10 MG PO (08:19)
--- NOTE | 2019-09-10 11:23 | P.PN_ITS ---
Subjective Subjective: Interval history: Patient awake in bed at time of exam this morning. She reported the breathing feels better today. Reports continued cough with sputum production. Reports feeling anxious and isolated. Reports that she is smoked for many years, discussed nicotine patch Vitals/I&O/Wt Last Vital Signs Temp 97.8 F 09/10/19 09:24 Pulse 94 09/10/19 10:30 Resp 19 H 09/10/19 10:30 BP 97/64 09/10/19 09:24 Pulse Ox 98 09/10/19 10:30 09/09/19 09/10/19 09/10/19 22:59 06:59 14:59 Intake Total 1000 / 1000 240 / 240 Output Total 200 / 200 650 / 650 Balance -200 / -200 1000 / 800 -410 / -410 Weight last 48 hrs Weight 77.111 kg Physical Exam Const: COMMON NORMALS: oriented x3 and alert GENERAL APPEARANCE: cooperative ORIENTATION/CONSCIOUSNESS: Yes awake, Yes oriented to person, Yes oriented to place and Yes oriented to time HENMT: COMMON NORMALS: normocephalic and head/scalp atraumatic HEAD & SCALP: normocephalic and atraumatic Eye: COMMON NORMALS: PERRL PUPIL: Yes PERRL Neck/C-Spine: COMMON NORMALS: supple GENERAL: Yes normal visual inspection Resp: EFFORT & INSPECTION: Yes tachypneic and Yes actively coughing AUSCULT ATION: wheezes OTHER: Diminished breath sounds bilaterally with prolonged expiratory phase and expiratory wheezing Cardio: COMMON NORMALS: no murmurs RATE: tachycardic GI: COMMON NORMALS: soft to palpation and non-tender INSPECTION: No abdominal distension AUSCULTATION: Yes normoactive bowel sounds PALPATION: Yes soft Extremity: COMMON NORMALS: no clubbing, cyanosis or edema and no calf tendern ess Neuro: COMMON NORMALS: oriented x3, CN's II-XII intact bilaterally, moves all extremities and no focal motor deficits SENSORIUM/ORIENTATION: Yes alert, Yes oriented to person, Yes oriented to place and Yes oriented to time SPEECH: speech normal Psych: COMMON NORMALS: mental status grossly normal and cooperative Skin: COMMON NORMALS: no rashes or lesions noted GENERAL SKIN EXAM: no rashes or lesions noted Data : 09/10/19 04:06 09/10/19 04:06 Micro: Microbiology 09/09/19 12:48 Gram Stain - Final Sputum - Expectorated Sputum Sputum Culture - Preliminary 09/09/19 11:20 Blood Culture - Preliminary Blood SPECIMEN COLLECTED 09/09/19 11:22 Blood Culture - Preliminary Blood SPECIMEN COLLECTED A&P Assessment and plan (1) Community acquired pneumonia: Continue on Levaquin Respiratory therapy to assess and treat Oxygen per protocol Continue to wean oxygen as tolerated with goal oxygen saturation of 90 to 92% COVID-19 testing pending Continue with contact and droplet precautions. For any high flow nasal cannula use, BiPAP or CPAP use will place on airborne precautions Status: Acute Code(s): J18.9 - Pneumonia, unspecified organism (2) Hypertension: Holding home antihypertensives due to soft blood pressures Status: Acute Code(s): I10 - Essential (primary) hypertension (3) COPD (chronic obstructive pulmonary disease): With acute exacerbation. Continue with IV antibiotics due to concern for pneumonia. Will hold off on steroids at this time and continue to monitor respiratory status closely. Due to concern for the possibility of viral pneumonia will hold off on steroids, if any continued worsening wheezing or respiratory status will add steroids for further management Status: Acute Code(s): J44.9 - Chronic obstructive pulmonary disease, unspecified (4) Tobacco abuse: strongly encourage cessation Status: Acute Code(s): Z72.0 - Tobacco use Additional A&P Information Concern for viral pneumonia: COVID -19 ordered and pending DVT prophylaxis: Lovenox Diet: Regular CODE STATUS: Full code Attestations Medical Necessity Statement*: Patient requires hospitalization due to concern for pneumonia with hypoxemia Coding Level of Care Code Acute Cigar Packer And Picker for [facility] Diagnoses Community acquired pneumonia J18.9 Hypertension I10 COPD (chronic obstructive pulmonary disease) J44.9 Tobacco abuse Z72.0
[2019-09-10] MEDS: levofloxacin-dextrose 5 % 750 MG/150 ML PREMIX 150 MG IV (11:28)
[2019-09-10] MEDS: nicotine 21 mg Patch 1 PATCH TRANSDERMA (11:32)
[2019-09-10] MEDS: enoxaparin 40 mg/0.4 mL Syringe SUBCUT (20:33)
[2019-09-10] MEDS: ipratropium-albuterol 3 mL Neb INHALATION (22:04)
[2019-09-11] VITALS (8 sets, daily range): BP systolic 100–118; BP diastolic 57–80; PULSE 83–88; RESP 16–20; TEMP 36.6–36.8; O2SAT 91–98
[2019-09-11 05:53] LABS: Basophils % 0.3 %; Eosinophils # 0.2 10^3/uL (0.0-0.8); Eosinophils % 1.3 %; Hematocrit 35.1 % (37.0-47.0); Hemoglobin 11.6 g/dL (11.5-15.3); Lymphocytes # 2.6 10^3/uL (0.8-4.8); Lymphocytes % 21.3 %; Mean Corpuscular Hemoglobin 29.4 pg (28.0-34.0); Mean Corpuscular Volume 88.9 fL (81-99); Mean Platelet Volume 10.1 fL (7.4-10.4); Monocytes # 0.8 10^3/uL (0.2-0.9); Monocytes % 6.4 %; Neutrophils # 8.4 10^3/uL (1.8-7.7); Neutrophils % 70.3 %; Nucleated Red Blood Cells % 0 %; Platelet Count 317 10^3/cmm (130-400); Red Blood Count 3.95 10^6/uL (4.1-5.3); Red Cell Distribution Width 12.5 % (12.1-15.1)
[2019-09-11 06:09] LABS: Anion Gap 14.1 (5-19); Blood Urea Nitrogen 12 mg/dL (8-23); Calcium 9.4 mg/dL (8.5-10.5); Carbon Dioxide 24 mmol/L (22-29); Chloride 106 mmol/L (98-107); Glucose 111 mg/dL (65-115); Osmolality Calculated 289 mOsm/kg (285-295); Potassium 3.1 mmol/L (3.5-5.1); Sodium 141 mmol/L (136-145)
[2019-09-11] MEDS: famotidine 20 mg Tablet 40 MG PO (09:45)
[2019-09-11] MEDS: nicotine 21 mg Patch 1 PATCH TRANSDERMA (09:45)
--- NOTE | 2019-09-11 11:09 | PC.RESP ---
Patient given Pulmonary Rehab and Smoking Cessation information.
--- NOTE | 2019-09-11 11:12 | PM.DCS ---
Discharge Providers Date of Admission: 09/09/19 15:42 Date of Discharge: September 11, 2019 Attending Provider at Admission: Vanda Bullock DO Attending Provider at Discharge: Vanda Bullock DO Primary Care Provider: Delaney Patricia Diagnoses at Discharge Discharge Diagnosis (1) Community acquired pneumonia: Status: Acute (2) Hypertension: Status: Acute (3) COPD (chronic obstructive pulmonary disease): Status: Acute (4) Tobacco abuse: Status: Acute Reason for Visit Reason for Visit: Reason For Visit: cough/sob/fever Hospital Course Hospital Course: Patient was seen and evaluated in the emergency department noted to have concern for pneumonia and admitted for further evaluation and treatment. She was given IV antibiotics and initially placed on contact precautions due to concern for fever, pneumonia, hypoxemia initially requiring 5 L of oxygen by nasal cannula. Patient was tested for viral respiratory illness including CO VID/19. Patient tested negative and was taken off of isolation precautions. Oxygen was weaned as tolerated. She was eventually weaned to room air and on date of discharge she reported that she was feeling well with no concerns. Spent 5 minutes discussing with patient the recommendation of smoking cessation, she was agreeable to nicotine patches. Recommended discharge to home and to call her primary care provider for close follow-up. On date of discharge she reported feeling ready for discharge with no further questions or concerns. Physical Exam Const: COMMON NORMALS: oriented x3 and alert GENERAL APPEARANCE: cooperative ORIENTATION/CONSCIOUSNESS: Yes awake, Yes oriented to person, Yes oriented to place and Yes oriented to time HENMT: COMMON NORMALS: normocephalic and head/scalp atraumatic HEAD & SCALP: normocephalic and atraumatic Eye: COMMON NORMALS: PERRL PUPIL: Yes PERRL Neck/C-Spine: COMMON NORMALS: supple GENERAL: Yes normal visual inspection Resp: EFFORT & INSPECTION: Yes tachypneic and Yes actively coughing AUSCULTATION: wheezes OTHER: Diminished breath sounds bilaterally with prolonged expiratory phase and, no wheezing or rhonchi Cardio: COMMON NORMALS: regular rate, regular rhythm and no murmurs RATE: regular rate RHYTHM: regular rhythm GI: COMMON NORMALS: soft to palpation and non-tender INSPECTION: No abdominal distension AUSCULTATION: Yes normoactive bowel sounds PALPATION: Yes soft Extremity: COMMON NORMALS: no clubbing, cyanosis or edema and no calf tenderness Neuro: COMMON NORMALS: oriented x3, CN's II-XII intact bilaterally, moves all extremities and no focal motor deficits SENSORIUM/ORIENTATION: Yes alert, Yes oriented to person, Yes oriented to place and Yes oriented to time SPEECH: speech normal Psych: COMMON NORMALS: mental status grossly normal and cooperative Skin: COMMON NORMALS: no rashes or lesions noted GENERAL SKIN EXAM: no rashes or lesions noted Discharge Data Data Completed and Pending: Completed Studies During Hospitalization Category Date Time Status XR chest 1V ermias ble [id number] Stat Exams 09/09/19 11:02 Completed Pending at discharge Category Date Time Status Blood Culture Sta t Lab 09/09/19 11:20 Results Miscellaneous Arcelia t Stat Lab 09/09/19 13:00 Received Sputum Culture an d Gram Stain Stat Lab 09/09/19 12:48 Results Labs from last 24 hours 09/11/19 09/11/19 05:25 05:25 WBC 12.0 H RBC 3.95 L Hgb 11.6 Hct 35.1 L MCV 88.9 MCH 29.4 MCHC 33.0 RDW 12.5 Plt Count 317 MPV 10.1 Neut % (Auto) 70.3 Lymph % (Auto) 21.3 Nuckolls % (Auto) 6.4 Eos % (Auto) 1.3 Baso % (Auto) 0.3 Neut # (Auto) 8.4 H Lymph # (Auto) 2.6 Nuckolls # (Auto) 0.8 Eos # (Auto) 0.2 Baso # (Auto) 0.0 Nucleated RBC % (a uto) 0 Nucleated RBCs # 0.0 Sodium 141 Potassium 3.1 L Chloride 106 Carbon Dioxide 24 Anion Gap 14.1 BUN 12 Creatinine 0.6 GFR Calculation 100.0 Glucose 111 Calculated Osmolal ity 289 Calcium 9.4 Vitals: Last Vital Signs Temp 97.8 F 09/11/19 07:00 Pulse 85 09/11/19 07:38 Resp 17 09/11/19 07:38 BP 112/64 09/11/19 07:00 Pulse Ox 91 09/11/19 09:51 Discharge Plan Discharge Patient Disposition: Home, Self-Care Condition: Stable Prescriptions: New nicotine 21 mg/24 hr Patch 24 Hour 1 patch transdermal DAILY 7 Days Qty: 7 RF: 0 levofloxacin [Levaquin] 750 mg tablet 750 mg PO DAILY 5 Days Qty: 5 RF: 0 Continued aspirin 325 mg Tablet 325 mg PO PRN RF: 0 famotidine 40 mg tablet 40 mg PO DAILY RF: 0 tramadol 50 mg tablet 50 - 100 mg PO BID PRN (Reason: Pain) RF: 0 benzonatate 100 mg capsule 100 mg PO TID PRN (Reason: Cough) RF: 0 albuterol sulfate 90 mcg/actuation HFA aerosol inhaler 2 puff INHALATION Q4H PRN (Reason: Wheezing) RF: 0 Incruse Ellipta 62.5 mcg/actuation blister with device 1 inh INHALATION DAILY RF: 0 Vitamin D3 125 mcg (5,000 unit) Tablet See Rx Instructions .ROUTE .COMPLEX RF: 0 Discontinued ibuprofen 800 mg tablet 800 mg PO TID PRN (Reason: Pain) RF: 0 potassium chloride 20 mEq/15 mL liquid See Rx Instructions .ROUTE .COMPLEX RF: 0 lisinopril-hydrochlorothiazide 10-12.5 mg tablet 1 tab PO DAILY RF: 0 Discharge Orders: Discharge Order (Routine); Ordered 09/11/19 Ordered By: Vanda Bullock Referrals: Delaney Patricia [Primary Care Provider] - 09/16/19 11:15 am Discharge Diet: Usual diet Discharge Activity: Increase activity as tolerated Activity Restrictions/Additional Instructions: Strongly encouraged tobacco cessation. Discussed and counseled with patient the need for tobacco cessation to prevent any future lung damage from smoking. Nicotine patches prescribed Continue with albuterol treatments as needed, every 4-6 hours for shortness of breath Started on Levaquin 750 mg daily for an additional 5 days Hold on lisinopril/HCTZ at this time until follow-up with primary care provider Discharge Attestations Time Spent in Discharge Care*: greater than 30 min Quality Metrics Clinical Quality Measures During this hospital stay, did patient experience: None Coding Level of Care Code Acute Grease Cup Filler for [facility] Diagnoses Community acquired pneumonia J18.9 Hypertension I10 COPD (chronic obstructive pulmonary disease) J44.9 Tobacco abuse Z72.0
--- NOTE | 2019-09-11 11:39 | PC.NURSE ---
DISCHARGE INSTRUCTIONS GIVEN D/C INSTRUCTIONS GIVEN TO PATIENT. PT VOICED UNDERSTANDING. IVS HAVE BEEN REMOVED. BELONGING ARE WITH PATIENT. PT HAS PHONE, PURSE, GLASSES IN HER POSSESION. YASMIN, BONNY
--- NOTE | 2019-09-11 11:50 | PC.SOCIAL ---
Home O2 eval completed, patient did not qualify.
--- NOTE | 2019-09-11 12:25 | PC.NURSE ---
DISCHARGE PATIENT LEFT FLOOR VIA WHEELCHAIR BY [facility]ORT FOR D/C HOME. ROBERTOW, BONNY
[2019-09-12 10:06] LABS: Coronavirus Lab Test PTC NOT DETECTED
--- NOTE | 2019-09-12 18:01 | PC.SOCIAL ---
Reported BC results to Dr Bullock and likely a contaminant. No further orders needed per Dr Bullock.
== END 2019-09-11 12:44 | disposition home or self-care (01) | DRG 194 ==
LOC: ER 15:35 → ICU 17:06 → MEDSURG 09-10 16:22
PROVIDERS: Admitting Provider Family Medicine; Emergency Provider Family Medicine; Family Provider Family Medicine; PCP Family Medicine; Visit Provider Family Medicine
DX: J18.9 Pneumonia, unspecified organism (principal); J44.0 Chronic obstructive pulmonary disease with (acute) lower respiratory infection; I10 Essential (primary) hypertension; F17.210 Nicotine dependence, cigarettes, uncomplicated; Z79.2 Long term (current) use of antibiotics; Z79.52 Long term (current) use of systemic steroids; Z79.891 Long term (current) use of opiate analgesic; Z79.82 Long term (current) use of aspirin; Z79.899 Other long term (current) drug therapy
CPT/HCPCS: 12345; 36415; 71045; 80048; 80053; 81003; 83605; 85025; 87040; 87070; 87077; 87205; 87635; 87804; 93005; 94640; 96372; 96375; 99284; J1650; J1956; J2930; J7030

== ENCOUNTER 2022-02-22 22:53 | Emergency (ER) | payer MEDICARE, MEDICAID, SELFPAY ==
[2022-02-22 22:55] VITALS: BP 113/57; PULSE 77; RESP 18; TEMP 36.9; O2SAT 95
--- NOTE | 2022-02-22 23:09 | ECG_ITS ---
[facility] Test Date: 2022-02-22 Pat Name: Eleni Hanson Department: Room: Gender: Female Pediatric Physician Assistant: : [id number] Requested By: Addi Little Order Number: [id number] Jese MD: Khadar Crawford M.D. Measurements Intervals [place] Rate: 72 P: 83 NE: 178 QRS: 86 QRSD: 78 T: 80 QT: 380 QTc: 418 Interpretive Statements SINUS RHYTHM Compared to ECG 09/09/2019 10:50:54 Sinus tachycardia no longer present T-wave abnormality no longer present Electronically Signed On 02-23-2022 19:47:14 CDT by Khadar Crawford M.D. [id number] f
--- NOTE | 2022-02-22 23:09 | XRR_ITS ---
PROCEDURE INFORMATION: Exam: XR Chest Exam date and time: 02/22/2022 11:25 PM Age: 66 years old Clinical indication: Shortness of breath; Patient HX: C/O SOB. History of copd. TECHNIQUE: Imaging protocol: Radiologic exam of the chest. Views: 1 view. COMPARISON: CR XR chest 1V portable [id number] 09/09/2019 11:15 AM FINDINGS: Lungs: Unremarkable. No consolidation. Right lower lobe calcified granuloma. Pleural spaces: Unremarkable. No pleural effusion. No pneumothorax. Heart/Mediastinum: Unremarkable. No cardiomegaly. Bones/joints: Unremarkable. XR/XR chest 1V portable [id number] IMPRESSION: No acute findings.
--- NOTE | 2022-02-22 23:11 | W.ED.SOB ---
HPI - SOB/Dyspnea General: Chief Complaint: Shortness of Breath/Dyspnea Stated Complaint: SOB Time Seen by Provider: 02/22/22 22:56 Source: patient and EMS Mode of arrival: EMS Limitations: no limitations History of Present Illness: HPI Narrative: 66-year-old female who has a history of COPD states her last 2 weeks she has been having a cough along with some shortness of breath. She denies any fevers states she had increased wheezing for like her COPD is worsened. She denies any vomiting or diarrhea. Denies any chest pain. Associated symptoms: Deny abdominal pain, chest pain, fever(s), nausea or vomiting Review of Systems Const: Denies: fever(s), chills, body aches or change in appetite Eyes: Denies: blurry vision or eye discomfort ENMT: Denies: throat pain or dental pain Card: Denies: chest pain Resp: Reports: dyspnea and non-productive cough GI: Denies: abdominal pain, nausea, vomiting or diarrhea : Denies: dysuria Musc: Denies: neck pain or back pain Skin/Breast: Denies: rash Neuro: Denies: headache(s) Psych: Denies: depression Santos/Lymph: Denies: easy bruising All/Imm: Denies: urticaria PFSH ED PFSH: Medical History COPD (chronic obstructive pulmonary disease) Hypertension Tobacco abuse Surgical History History of appendectomy History of cataract surgery Family History Mother CAD (coronary artery disease) Social History Smoking and tobacco status: current every day smoker Alcohol intake: never Physical Exam Const: COMMON NORMALS: no acute distress, patient oriented x3 and healthy appearing HENMT: COMMON NORMALS: normocephalic and atraumatic HEAD & SCALP: normocephalic and atraumatic Eye: COMMON NORMALS: Equal, round and reactive pupils present and EOMs intact bilaterally PUPIL: Yes Equal, round and reactive pupils present Neck/C-Spine: COMMON NORMALS: full ROM and supple Chest: COMMONS NORMALS: normal inspection of the chest and normal palpation of entire chest wall Resp: COMMON NORMALS: normal respiratory effort, No retractions and No use of accessory muscles AUSCULTATION: wheezes Cardio: COMMON NORMALS: regular rate, regular rhythm and No murmurs present (Cardio) RATE: regular rate RHYTHM: regular rhythm GI: COMMON NORMALS: Normal to inspection, nondistended, normoactive bowel sounds present, Soft to palpation, non-tender and no masses PALPATION: Yes Soft to palpation Extremity: COMMON NORMALS: normal to inspection and full ROM Neuro: COMMON NORMALS: patient oriented x3, moves all extremities and no focal motor deficits Psych: COMMON NORMALS: mental status grossly normal, Normal thought process present and cooperative THOUGHT PROCESS: Normal thought process present Skin: COMMON NORMALS: no rashes or lesions noted and no wounds GENERAL SKIN EXAM: no rashes or lesions noted Course Vital Signs: Vital signs: Vital Signs Temperature 98.5 F 02/22/22 22:55 Pulse Rate 89 02/23/22 01:00 Respiratory Rate 18 02/23/22 01:00 Blood Pressure 102/65 02/23/22 01:00 Pulse Oximetry 93 02/23/22 01:00 Oxygen Delivery Me thod 02/22/22 23:20 MDM - SOB/Dyspnea Medical Decision Making Patient presents here with shortness of breath likely COPD exacerbation she has an increased cough as well x-ray showed no pneumonia we will start on antibiotics along with steroids patient's not hypoxic here blood works normal she stable for discharge she is to follow-up with PCP and return if worsening. Lab Data : 02/22/22 23:05 02/22/22 23:05 Labs/Radiology: Radiology Impressions Chest X-Ray 02/22/22 23:09 IMPRESSION: No acute findings. Laboratory Results WBC 11.0 10^3/uL (4.0-10.0) H 02/22/22 23:05 RBC 4.25 10^6/uL (4.1-5.3) 02/22/22 23:05 Hgb 12.9 g/dL (11.5-15.3) 02/22/22 23:05 Hct 38.9 % (37.0-47.0) 02/22/22 23:05 MCV 91.5 fl (81-99) 02/22/22 23:05 MCH 30.4 pg (28.0-34.0) 02/22/22 23:05 MCHC 33.2 g/dL (30.0-36.0) 02/22/22 23:05 RDW 12.5 % (12.1-15.1) 02/22/22 23:05 Plt Count 234 10^3/cmm (130-400) 02/22/22 23:05 MPV 9.9 fL (7.4-10.4) 02/22/22 23:05 Neut % (Auto) 73.7 % 02/22/22 23:05 Lymph % (Auto) 15.9 % 02/22/22 23:05 [place] % (Auto) 5.6 % 02/22/22 23:05 Eos % (Auto) 3.9 % 02/22/22 23:05 Baso % (Auto) 0.6 % 02/22/22 23:05 Neut # (Auto) 8.09 10^3/uL (1.8-7.7) H 02/22/22 23:05 Lymph # (Auto) 1.8 10^3/uL (0.8-4.8) 02/22/22 23:05 [place] # (Auto) 0.6 10^3/uL (0.2-0.9) 02/22/22 23:05 Eos # (Auto) 0.4 10^3/uL (0.0-0.8) 02/22/22 23:05 Baso # (Auto) 0.1 10^3/uL (0.0-0.1) 02/22/22 23:05 Nucleated RBC % (auto) 0 % 02/22/22 23:05 Nucleated RBCs # 0.0 /100WBC 02/22/22 23:05 Sodium 136 mmol/L (136-145) 02/22/22 23:05 Potassium 3.8 mmol/L (3.5-5.1) 02/22/22 23:05 Chloride 99 mmol/L (98-107) 02/22/22 23:05 Carbon Dioxide 27 mmol/L (22-29) 02/22/22 23:05 Anion Gap 13.8 (5-19) 02/22/22 23:05 BUN 12 mg/dL (8-23) 02/22/22 23:05 Creatinine 0.7 mg/dL (0.5-0.9) 02/22/22 23:05 GFR Calculation 83.2 mL/min (90-130) L 02/22/22 23:05 Glucose 105 mg/dL (65-115) 02/22/22 23:05 Calculated Osmolality 282 mOsm/kg (285-295) L 02/22/22 23:05 Calcium 9.5 mg/dL (8.5-10.5) 02/22/22 23:05 Total Bilirubin 0.2 mg/dL (0.15-1.2) 02/22/22 23:05 AST 11 U/L (0-32) 02/22/22 23:05 ALT 9 U/L (0-33) 02/22/22 23:05 Alkaline Phosphatase 61 U/L (35-105) 02/22/22 23:05 Troponin T Baseline 7 ng/L (0-10) 02/22/22 23:05 NT-Pro-B Natriuret Pep 69 pg/mL (0-125) 02/22/22 23:05 Total Protein 6.6 g/dL (6.6-8.7) 02/22/22 23:05 Albumin 4.1 g/dL (3.5-5.2) 02/22/22 23:05 Globulin 2.5 g/dL (1.3-4.6) 02/22/22 23:05 SARS-CoV-2 Ag (Rapid) Negative (Negative) 02/22/22 23:20 EKG Data EKG 1: I personally reviewed and interpreted this EKG as follows: EKG Interpretation Date: 02/22/22 EKG interpretation time: 22:20 Interpretation: nsr hr [address] or t wave abnormalities qrs 78 qtc 405 Discharge Plan Discharge Patient Disposition: Home Clinical Impression: Acute exacerbation of chronic obstructive airways disease Condition: Stable Prescriptions: New prednisone 50 mg tablet 50 mg PO DAILY Qty: 5 0RF doxycycline hyclate 100 mg tablet 100 mg PO BID 7 Days Qty: 14 0RF No Action aspirin 325 mg Tablet 325 mg PO PRN famotidine 40 mg tablet 40 mg PO DAILY tramadol 50 mg tablet 50 - 100 mg PO BID PRN (Reason: Pain) benzonatate 100 mg capsule 100 mg PO TID PRN (Reason: Cough) albuterol sulfate 90 mcg/actuation HFA aerosol inhaler 2 puff INHALATION Q4H PRN (Reason: Wheezing) Incruse Ellipta 62.5 mcg/actuation blister with device 1 inh INHALATION DAILY Vitamin D3 125 mcg (5,000 unit) Tablet See Rx Instructions .ROUTE .COMPLEX Rx Instructions: prescription strength, take once a week for 12 weeks Discharge Orders: Discharge ED (Routine); Ordered 02/23/22 Ordered By: Addi Little Referrals: Delaney Patricia [Primary Care Provider] - 1-3 days Discharge Diet: Advance as tolerated Discharge Activity: Resume usual activity Patient Instructions: Opioid Safety Coding Level of Care Code ED Mechanical Systems Engineer for Chg Fwd Exam Comprehensive
[2022-02-22] MEDS: ipratropium-albuterol 3 mL Neb INHALATION (23:18)
[2022-02-22 23:20] VITALS: PULSE 72; RESP 16; O2SAT 94
[2022-02-22 23:25] VITALS: PULSE 79
[2022-02-22 23:27] LABS: Basophils # 0.1 10^3/uL (0.0-0.1); Basophils % 0.6 %; Eosinophils # 0.4 10^3/uL (0.0-0.8); Eosinophils % 3.9 %; Hematocrit 38.9 % (37.0-47.0); Hemoglobin 12.9 g/dL (11.5-15.3); Lymphocytes # 1.8 10^3/uL (0.8-4.8); Lymphocytes % 15.9 %; Mean Corpuscular HGB Conc 33.2 g/dL (30.0-36.0); Mean Corpuscular Hemoglobin 30.4 pg (28.0-34.0); Mean Corpuscular Volume 91.5 fl (81-99); Mean Platelet Volume 9.9 fL (7.4-10.4); Monocytes # 0.6 10^3/uL (0.2-0.9); Monocytes % 5.6 %; Neutrophils # 8.09 10^3/uL (1.8-7.7); Neutrophils % 73.7 %; Nucleated Red Blood Cells % 0 %; Platelet Count 234 10^3/cmm (130-400); Red Blood Count 4.25 10^6/uL (4.1-5.3); Red Cell Distribution Width 12.5 % (12.1-15.1)
[2022-02-22 23:44] LABS: Troponin(5th) Baseline 7 ng/L (0-10)
[2022-02-22 23:47] LABS: SARS Covid-2 Antigen Negative (Negative)
[2022-02-22 23:51] LABS: Alanine Aminotransferase 9 U/L (0-33); Albumin Level 4.1 g/dL (3.5-5.2); Alkaline Phosphatase 61 U/L (35-105); Anion Gap 13.8 (5-19); Aspartate Amino Transferase 11 U/L (0-32); Blood Urea Nitrogen 12 mg/dL (8-23); Calcium 9.5 mg/dL (8.5-10.5); Carbon Dioxide 27 mmol/L (22-29); Chloride 99 mmol/L (98-107); Globulin 2.5 g/dL (1.3-4.6); Glomerular Filtration Rate 83.2 mL/min (90-130); Glucose 105 mg/dL (65-115); NT Pro B Type Natriuretic Pept 69 pg/mL (0-125); Osmolality Calculated 282 mOsm/kg (285-295); Potassium 3.8 mmol/L (3.5-5.1); Sodium 136 mmol/L (136-145); Total Bilirubin 0.2 mg/dL (0.15-1.2); Total Protein 6.6 g/dL (6.6-8.7)
--- NOTE | 2022-02-23 00:52 | PC.NURSE ---
at pt request i called her adri and requested he come to pick her up
[2022-02-23 01:00] VITALS: BP 102/65; PULSE 89; RESP 18; O2SAT 93
== END 2022-02-23 01:01 | disposition home or self-care (01) ==
PROVIDERS: Emergency Provider Emergency Medicine; PCP Family Medicine
DX: J44.1 Chronic obstructive pulmonary disease with (acute) exacerbation (principal); I10 Essential (primary) hypertension; F17.200 Nicotine dependence, unspecified, uncomplicated
CPT/HCPCS: 71045; 80053; 83880; 84484; 85025; 87426; 93005; 94640; 96374; 99285; J2930

== ENCOUNTER 2022-04-22 01:11 | Emergency (ER) | payer MEDICARE, MEDICAID, SELFPAY ==
[2022-04-22 01:16] VITALS: BP 108/65; PULSE 80; RESP 25; TEMP 36.6; O2SAT 93
[2022-04-22 01:18] VITALS: BP 108/65; PULSE 80; RESP 25; TEMP 36.6; O2SAT 93; BMI 25.7
--- NOTE | 2022-04-22 01:28 | XRR_ITS ---
PROCEDURE INFORMATION: Exam: XR Chest Exam date and time: 04/22/2022 1:44 AM Age: 66 years old Clinical indication: Shortness of breath; Patient HX: C/O SOB. History of copd. TECHNIQUE: Imaging protocol: Radiologic exam of the chest. Views: 1 view. COMPARISON: CR XR chest 1V portable [id number] 02/22/2022 11:25 PM FINDINGS: Lungs: Stable 8 mm nodule in the lower lateral portion of the right lung, similar to prior exam possibly a calcified granuloma. The lung parenchyma is otherwise clear. Pleural spaces: No pneumothorax. No pleural effusion. Heart/Mediastinum: The cardiomediastinal silhouette is within normal limits. Bones/joints: Unremarkable. XR/XR chest 1V portable [id number] IMPRESSION: No acute cardiopulmonary abnormality identified.
[2022-04-22 01:39] LABS: Basophils % 0.4 %; Eosinophils # 0.1 10^3/uL (0.0-0.8); Eosinophils % 1.1 %; Hematocrit 39.5 % (37.0-47.0); Hemoglobin 12.7 g/dL (11.5-15.3); Lymphocytes % 19.1 %; Mean Corpuscular HGB Conc 32.2 g/dL (30.0-36.0); Mean Corpuscular Hemoglobin 30.2 pg (28.0-34.0); Mean Platelet Volume 9.3 fL (7.4-10.4); Monocytes # 0.3 10^3/uL (0.2-0.9); Monocytes % 6.3 %; Neutrophils % 72.5 %; Nucleated Red Blood Cells % 0 %; Platelet Count 197 10^3/cmm (130-400); Red Cell Distribution Width 14.2 % (12.1-15.1); White Blood Count 5.4 10^3/uL (4.0-10.0)
[2022-04-22] MEDS: ipratropium-albuterol 3 mL Neb INHALATION (01:39)
[2022-04-22 01:40] VITALS: PULSE 78; RESP 18; O2SAT 92
[2022-04-22 01:42] VITALS: PULSE 75
--- NOTE | 2022-04-22 01:43 | ED_ITS ---
HPI - SOB/Dyspnea General: Chief Complaint: Shortness of Breath/Dyspnea Stated Complaint: SOB Time Seen by Provider: 04/22/22 01:20 Source: patient Mode of arrival: ambulatory Limitations: no limitations History of Present Illness: HPI Narrative: 66-year-old female who has a history of COPD is a longtime smoker states she has been having an increased cough while some shortness of breath throughout the day denies any fever patient's able speak in full senses here is in no distress she has no known sick contacts denies any vomiting diarrhea she denies any chest pain denies any fever Associated symptoms: Deny abdominal pain, chest pain, fever(s), nausea or vomiting Review of Systems Const: Denies: fever(s), chills, body aches or change in appetite Eyes: Denies: blurry vision or eye discomfort ENMT: Denies: throat pain or dental pain Card: Denies: chest pain Resp: Reports: dyspnea, non-productive cough and wheezing GI: Denies: abdominal pain, nausea, vomiting or diarrhea : Denies: dysuria Musc: Denies: neck pain or back pain Skin/Breast: Denies: rash Neuro: Denies: headache(s) Psych: Denies: depression Santos/Lymph: Denies: easy bruising All/Imm: Denies: urticaria PFSH ED PFSH: Medical History COPD (chronic obstructive pulmonary disease) Hypertension Tobacco abuse Surgical History History of appendectomy History of cataract surgery Family History Mother CAD (coronary artery disease) Social History Smoking and tobacco status: current every day smoker Alcohol intake: never Physical Exam Const: COMMON NORMALS: no acute distress, patient oriented x3 and healthy appearing HENMT: COMMON NORMALS: normocephalic and atraumatic HEAD & SCALP: normocephalic and atraumatic Eye: COMMON NORMALS: Equal, round and reactive pupils present and EOMs intact bilaterally PUPIL: Yes Equal, round and reactive pupils present Neck/C-Spine: COMMON NORMALS: full ROM and supple Chest: COMMONS NORMALS: normal inspection of the chest and normal palpation of entire chest wall Resp: COMMON NORMALS: normal respiratory effort, No retractions and No use of accessory muscles AUSCULTATION: wheezes Cardio: COMMON NORMALS: regular rate, regular rhythm and No murmurs present (Cardio) RATE: regular rate RHYTHM: regular rhythm GI: COMMON NORMALS: Normal to inspection, nondistended, normoactive bowel sounds present, Soft to palpation, non-tender and no masses PALPATION: Yes Soft to palpation Extremity: COMMON NORMALS: normal to inspection and full ROM Neuro: COMMON NORMALS: patient oriented x3, moves all extremities and no focal motor deficits Psych: COMMON NORMALS: mental status grossly normal, Normal thought process present and cooperative THOUGHT PROCESS: Normal thought process present Skin: COMMON NORMALS: no rashes or lesions noted and no wounds GENERAL SKIN EXAM: no rashes or lesions noted Course Vital Signs: Vital signs: Vital Signs Temperature 97.9 F 04/22/22 01:18 Pulse Rate 82 04/22/22 02:12 Respiratory Rate 18 04/22/22 02:12 Blood Pressure 121/63 04/22/22 02:12 Pulse Oximetry 93 04/22/22 02:12 Oxygen Delivery Me thod 04/22/22 01:40 MDM - SOB/Dyspnea Medical Decision Making Patient presents for shortness of breath likely from COVID she did test positive for COVID x-ray here shows no pneumonia she is in no distress here her oxygen is normal we will prescribe her pxlovidt she is to follow-up with her PCP and return if worsening Lab Data : 04/22/22 01:27 04/22/22 01:27 Labs/Radiology: Laboratory Results WBC 5.4 10^3/uL (4.0-10.0) 04/22/22 01:27 RBC 4.20 10^6/uL (4.1-5.3) 04/22/22 01:27 Hgb 12.7 g/dL (11.5-15.3) 04/22/22 01:27 Hct 39.5 % (37.0-47.0) 04/22/22 01:27 MCV 94.0 fl (81-99) 04/22/22 01:27 MCH 30.2 pg (28.0-34.0) 04/22/22 01:27 MCHC 32.2 g/dL (30.0-36.0) 04/22/22: RDW 14.2 % (12.1-15.1) 04/22/22:27 Plt Count 197 10^3/cmm (130-400) 04/22/22 01:27 MPV 9.3 fL (7.4-10.4) 04/22/22: Neut % (Auto) 72.5 % 04/22/22 01: Lymph % (Auto) 19.1 % 04/22/22 01: [place] % (Auto) 6.3 % 04/22/22: Eos % (Auto) 1.1 % 04/22/22: Baso % (Auto) 0.4 % 04/22/22: Neut # (Auto) 3.90 10^3/uL (1.8-7.7) 04/22/22: Lymph # (Auto) 1.0 10^3/uL (0.8-4.8) 04/22/22: [place] # (Auto) 0.3 10^3/uL (0.2-0.9) 04/22/22: Eos # (Auto) 0.1 10^3/uL (0.0-0.8) 04/22/22: Baso # (Auto) 0.0 10^3/uL (0.0-0.1) 04/22/22: Nucleated RBC % (auto) 0 % 04/22/22: Nucleated RBCs # 0.0 /100WBC 04/22/22 01:27 Sodium 134 mmol/L (136-145) L 04/22/22 01:27 Potassium 3.9 mmol/L (3.5-5.1) 04/22/22: Chloride 99 mmol/L (98-107) 04/22/22: Carbon Dioxide 26 mmol/L (22-29) 04/22/22: Anion Gap 12.9 (5-19) 04/22/22 01:27 BUN 12 mg/dL (8-23) 04/22/22:27 Creatinine 0.7 mg/dL (0.5-0.9) 04/22/22 01:27 GFR Calculation 83.2 mL/min (90-130) L 04/22/22 01:27 Glucose 130 mg/dL (65-115) H 04/22/22 01:27 Calculated Osmolality 280 mOsm/kg (285-295) L 04/22/22 01:27 Calcium 9.4 mg/dL (8.5-10.5) 04/22/22 01:27 Total Bilirubin 0.2 mg/dL (0.15-1.2) 04/22/22 01:27 AST 15 U/L (0-32) 04/22/22 01:27 ALT 11 U/L (0-33) 04/22/22 01:27 Alkaline Phosphatase 58 U/L (35-105) 04/22/22 01:27 NT-Pro-B Natriuret Pep 51 pg/mL (0-125) 04/22/22 01:27 Total Protein 6.9 g/dL (6.6-8.7) 04/22/22 01:27 Albumin 4.1 g/dL (3.5-5.2) 04/22/22 01:27 Globulin 2.8 g/dL (1.3-4.6) 04/22/22 01:27 SARS-CoV-2 Ag (Rapid) positive (Negative) 04/22/22 01:31 EKG Data EKG 1: I personally reviewed and interpreted this EKG as follows: EKG Interpretation Date: 04/22/22 EKG interpretation time: 01:38 Interpretation: nsr hr [address] or t wave abnormalities qrs 89 qtc 410 Discharge Plan Discharge Patient Disposition: Home Clinical Impression: COVID-19 Condition: Stable Prescriptions: New Paxlovid (EUA) 300 mg (150 mg x 2)-100 mg tablets,dose pack See Rx Instructions .ROUTE .COMPLEX Qty: 30 0RF Rx Instructions: take TWO 150 mg tablets of nirmatrelvir with ONE 100 mg tablet of ritonavir twice daily for 5 days No Action aspirin 325 mg Tablet 325 mg PO PRN famotidine 40 mg tablet 40 mg PO DAILY tramadol 50 mg tablet 50 - 100 mg PO BID PRN (Reason: Pain) benzonatate 100 mg capsule 100 mg PO TID PRN (Reason: Cough) albuterol sulfate 90 mcg/actuation HFA aerosol inhaler 2 puff INHALATION Q4H PRN (Reason: Wheezing) Incruse Ellipta 62.5 mcg/actuation blister with device 1 inh INHALATION DAILY Vitamin D3 125 mcg (5,000 unit) Tablet See Rx Instructions .ROUTE .COMPLEX Rx Instructions: prescription strength, take once a week for 12 weeks prednisone 50 mg tablet 50 mg PO DAILY Qty: 5 0RF Discharge Orders: Discharge ED (Routine); Ordered 04/22/22 Ordered By: Addi Little Referrals: Delaney Patricia [Primary Care Provider] - Discharge Diet: Advance as tolerated Discharge Activity: Resume usual activity Patient Instructions: COVID-19 (Coronavirus Disease 2019) (ED) Coding Level of Care Code ED Cold Roll Inspector for Luisg Fwd Exam Comprehensive
[2022-04-22 01:56] LABS: SARS Covid-2 Antigen positive (Negative)
[2022-04-22 02:02] LABS: Alanine Aminotransferase 11 U/L (0-33); Albumin Level 4.1 g/dL (3.5-5.2); Alkaline Phosphatase 58 U/L (35-105); Anion Gap 12.9 (5-19); Aspartate Amino Transferase 15 U/L (0-32); Blood Urea Nitrogen 12 mg/dL (8-23); Calcium 9.4 mg/dL (8.5-10.5); Carbon Dioxide 26 mmol/L (22-29); Chloride 99 mmol/L (98-107); Globulin 2.8 g/dL (1.3-4.6); Glomerular Filtration Rate 83.2 mL/min (90-130); Glucose 130 mg/dL (65-115); Osmolality Calculated 280 mOsm/kg (285-295); Potassium 3.9 mmol/L (3.5-5.1); Sodium 134 mmol/L (136-145); Total Bilirubin 0.2 mg/dL (0.15-1.2); Total Protein 6.9 g/dL (6.6-8.7)
[2022-04-22 02:03] LABS: NT Pro B Type Natriuretic Pept 51 pg/mL (0-125)
[2022-04-22 02:12] VITALS: BP 121/63; PULSE 82; RESP 18; O2SAT 93
[2022-04-22 02:25] VITALS: BP 121/63; PULSE 82; RESP 18; O2SAT 93
== END 2022-04-22 02:27 | disposition home or self-care (01) ==
PROVIDERS: Emergency Provider Emergency Medicine; PCP Family Medicine
DX: U07.1 COVID-19 (principal); Z79.82 Long term (current) use of aspirin; J44.9 Chronic obstructive pulmonary disease, unspecified; I10 Essential (primary) hypertension; F17.210 Nicotine dependence, cigarettes, uncomplicated
CPT/HCPCS: 71045; 80053; 83880; 85025; 87426; 94640; 96374; 99284; J2930

== ENCOUNTER 2022-05-16 10:07 | Emergency (ER) | payer MEDICARE, MEDICAID, SELFPAY ==
[2022-05-16 10:06] VITALS: BP 111/65; PULSE 83; RESP 14; TEMP 36.2; O2SAT 92; BMI 25.4
--- NOTE | 2022-05-16 10:09 | XR_ITS ---
WS: [id number] XR chest 1V portable [id number] REASON FOR EXAM: screen FINDINGS: The chest is unchanged compared to 04/22/2022. The heart and mediastinum are within normal limits. Calcified granulomatous disease in both hemithoraces. No acute pulmonary parenchymal or pleural abnormality is identified. Mild to moderate degenerative spondylosis in the mid and lower thoracic spine. XR/XR chest 1V portable [id number] IMPRESSION: Stable chest without acute abnormality.
--- NOTE | 2022-05-16 10:26 | W.ED.PSYCHS ---
Documented by User: Arjun Mckeon DO 05/19/22 07:07 HPI - Psych General: Chief Complaint: Psychiatric Symptoms Stated Complaint: SI w/ plan Time Seen by Provider: 05/16/22 10:08 Source: patient Mode of arrival: ambulatory History of Present Illness: 66-year-old female presents emergency room complaining of suicidal ideation. States she has had thoughts of suicide for the last 3 days told the nurse she has considered shooting herself with a firearm she does have access to a firearm. When I seen her she denied any plan and did not press her on it since I read the nurses note. She does states she feels suicidal she blames it on a new medication that was recently started bupropion at 7/2 mg twice daily. No previous history of suicide attempt or hospitalization for mental health issues. Patient does admit she has history of panic attacks and anxiety which is why they prescribed bupropion MD complaint: suicidal ideation and feels depressed Onset (ago): unknown Duration: constant Relieving factors: none Exacerbating factors: medication Context: new medication(s) Associated psychiatric symptoms: depression and suicidal ideation Associated symptoms: Reports depression and suicidal ideation Treatments prior to arrival: none If self harm: admits thoughts of self harm and has plan Review of Systems Const: Denies: fever(s), chills, body aches, change in appetite, fatigue or malaise ENMT: Denies: throat pain, ear or mastoid pain, nasal discharge or nasal congestion Card: Denies: chest pain, edema, dyspnea on exertion or orthopnea Resp: Denies: dyspnea, productive cough or non-productive cough GI: Denies: abdominal pain, nausea, vomiting, hematemesis, coffee ground emesis, diarrhea, constipation, bloating, hematochezia or melena : Denies: flank pain, difficulty voiding, dysuria, urinary frequency or urinary urgency Skin/Breast: Denies: rash or pruritus Psych: Reports: anxiety, depression, hopelessness and suicidal ideation [facility] ED PFSH: Medical History COPD (chronic obstructive pulmonary disease) Hypertension Tobacco abuse Surgical History History of appendectomy History of cataract surgery Family History Mother CAD (coronary artery disease) Social History Smoking and tobacco status: current every day smoker Alcohol intake: never Physical Exam Const: GENERAL APPEARANCE: cooperative and comfortable ORIENTATION/CONSCIOUSNESS: Yes awake, Yes oriented to person, Yes oriented to place and Yes oriented to time HENMT: COMMON NORMALS: normocephalic, atraumatic and hearing grossly normal bilaterally HEAD & SCALP: normocephalic and atraumatic Resp: COMMON NORMALS: normal respiratory effort, No retractions, No use of accessory muscles and clear to auscultation bilaterally AUSCULTATION: clear to auscultation bilaterally Cardio: COMMON NORMALS: regular rate, regular rhythm and No murmurs present (Cardio) RATE: regular rate RHYTHM: regular rhythm GI: COMMON NORMALS: Soft to palpation and No hepatosplenomegaly present AUSCULTATION: Yes normoactive bowel sounds PALPATION: Yes Soft to palpation, No Tenderness to palpation present (GI), No Guarding due to palpation present (GI) and Yes No hepatosplenomegaly present Extremity: COMMON NORMALS: normal to inspection, capillary refill normal, no clubbing, cyanosis or edema, no calf tenderness and no pedal edema Neuro: SENSORIUM/ORIENTATION: Yes oriented to person, Yes oriented to place and Yes oriented to time Skin: COMMON NORMALS: no rashes or lesions noted GENERAL SKIN EXAM: no rashes or lesions noted Course Vital Signs: Vital signs: Vital Signs Temperature 97.2 F L 05/16/22 10:06 Pulse Rate 111 H 05/17/22 11:58 Respiratory Rate 16 05/17/22 11:58 Blood Pressure 94/64 05/17/22 11:58 Pulse Oximetry 93 05/17/22 11:58 Oxygen Delivery Me thod 05/17/22 11:58 Oxygen Flow Rate 3 05/17/22 11:58 MDM - Psych Medical Decision Making Patient seen and evaluated given her complaint of suicidal ideation she plans to use a gun to kill her self she has access to a gun. She initially did not tell me this but she had told the nurse she had been very nonchalant about the suicidal ideation and thoughts of dizziness that is a passing thought with no significant concern however when I reviewed the nurses notes and talk to the nurse that she had expressed very specific plan although she had not acted on it. Given this I think she definitely requires inpatient evaluation especially given the high stress situation when she would return to if she were to be discharged. We are working on finding placement care turned over to Dr. Little at change of shift. 58-year-old female who presents with suicidal ideations. The patient had a definite plan, wanting to shoot herself with a gun. She will definitely need psychiatric placement. She is medically cleared for psych placement and has been accepted at [facility]. Lab Data 05/16/22 11:05 05/16/22 11:05 Radiology Impressions Chest X-Ray 05/16/22 10:09 IMPRESSION: Stable chest without acute abnormality. Laboratory Results WBC 7.4 10^3/uL (4.0-10.0) 05/16/22 11:05 RBC 4.01 10^6/uL (4.1-5.3) L 05/16/22 11:05 Hgb 12.3 g/dL (11.5-15.3) 05/16/22 11:05 Hct 37.8 % (37.0-47.0) 05/16/22 11:05 MCV 94.3 fl (81-99) 05/16/22 11:05 MCH 30.7 pg (28.0-34.0) 05/16/22 11:05 MCHC 32.5 g/dL (30.0-36.0) 05/16/22 11:05 RDW 14.4 % (12.1-15.1) 05/16/22 11:05 Plt Count 274 10^3/cmm (130-400) 05/16/22 11:05 MPV 9.8 fL (7.4-10.4) 05/16/22 11:05 Neut % (Auto) 62.1 % 05/16/22 11:05 Lymph % (Auto) 24.5 % 05/16/22 11:05 [place] % (Auto) 7.6 % 05/16/22 11:05 Eos % (Auto) 4.7 % 05/16/22 11:05 Baso % (Auto) 0.7 % 05/16/22 11:05 Neut # (Auto) 4.58 10^3/uL (1.8-7.7) 05/16/22 11:05 Lymph # (Auto) 1.8 10^3/uL (0.8-4.8) 05/16/22 11:05 [place] # (Auto) 0.6 10^3/uL (0.2-0.9) 05/16/22 11:05 Eos # (Auto) 0.4 10^3/uL (0.0-0.8) 05/16/22 11:05 Baso # (Auto) 0.1 10^3/uL (0.0-0.1) 05/16/22 11:05 Nucleated RBC % (auto) 0 % 05/16/22 11:05 Nucleated RBCs # 0.0 /100WBC 05/16/22 11:05 PT 12.90 SECONDS (12.1-14.9) 05/16/22 11:05 INR 0.95 (0.8-1.2) 05/16/22 11:05 Sodium 134 mmol/L (136-145) L 05/16/22 11:05 Potassium 4.0 mmol/L (3.5-5.1) 05/16/22 11:05 Chloride 98 mmol/L (98-107) 05/16/22 11:05 Carbon Dioxide 25 mmol/L (22-29) 05/16/22 11:05 Anion Gap 15.0 (5-19) 05/16/22 11:05 BUN 10 mg/dL (8-23) 05/16/22 11:05 Creatinine 0.7 mg/dL (0.5-0.9) 05/16/22 11:05 GFR Calculation 83.2 mL/min (90-130) L 05/16/22 11:05 Glucose 100 mg/dL (65-115) 05/16/22 11:05 Calculated Osmolality 277 mOsm/kg (285-295) L 05/16/22 11:05 Calcium 10.3 mg/dL (8.5-10.5) 05/16/22 11:05 Total Bilirubin 0.6 mg/dL (0.15-1.2) 05/16/22 11:05 AST 14 U/L (0-32) 05/16/22 11:05 ALT 10 U/L (0-33) 05/16/22 11:05 Alkaline Phosphatase 57 U/L (35-105) 05/16/22 11:05 Total Protein 7.1 g/dL (6.6-8.7) 05/16/22 11:05 Albumin 4.2 g/dL (3.5-5.2) 05/16/22 11:05 Globulin 2.9 g/dL (1.3-4.6) 05/16/22 11:05 TSH 0.64 uIU/mL (0.27-4.20) 05/16/22 11:05 Thyroxine (T4) 11.2 mcg/dL (5.1-11.9) 05/16/22 11:05 Urine Color Yellow (Yellow) 05/16/22 10:49 Urine Appearance Clear (CLEAR) 05/16/22 10:49 Urine pH 5 (5-7) 05/16/22 10:49 Ur Specific [place] 1.015 (1.005-1.030) 05/16/22 10:49 Urine Protein Neg (Negative) 05/16/22 10:49 Urine Glucose (UA) Norm (Normal) 05/16/22 10:49 Urine Ketones Negative (Negative) 05/16/22 10:49 Urine Blood Neg (Negative) 05/16/22 10:49 Urine Nitrate Negative (Negative) 05/16/22 10:49 Urine Bilirubin Neg (Negative) 05/16/22 10:49 Urine Urobilinogen Norm mg/dL (Negative) 05/16/22 10:49 Ur Leukocyte Esterase Negative (Negative) 05/16/22 10:49 Salicylates < 0.3 mg/dL (3-10) L 05/16/22 11:05 Urine Opiates Screen Negative ng/mL (Negative) 05/16/22 10:49 Acetaminophen < 5.0 ug/mL (10-30) L 05/16/22 11:05 Ur Barbiturates Screen Negative ng/mL (Negative) 05/16/22 10:49 Ur Phencyclidine Scrn Positive ng/mL (Negative) H 05/16/22 10:49 Ur Amphetamines Screen Negative ng/mL (Negative) 05/16/22 10:49 U Benzodiazepines Scrn Negative ng/mL (Negative) 05/16/22 10:49 Urine Cocaine Screen Negative ng/mL (Negative) 05/16/22 10:49 U Marijuana (THC) Screen Negative ng/mL (Negative) 05/16/22 10:49 Ethyl Alcohol < 10 mg/dL (0-10) 05/16/22 11:05 Influenza Type A Ag negative (Negative) 05/17/22 09:35 Influenza Type B Ag negative (Negative) 05/17/22 09:35 SARS-CoV-2 Ag (Rapid) negative (Negative) 05/16/22 10:51 Discharge Plan Discharge Patient Disposition: Xfer Psychiatric Hosp Clinical Impression: Suicidal ideation Condition: Stable Referrals: Delaney Patricia [Primary Care Provider] - Coding Level of Care Code ED Mail Clerks Supervisor for Chg Fwd Exam Detailed Documented by User: Delaney Rawls MD 05/17/22 11:39 HPI - Psych General: Chief Complaint: Psychiatric Symptoms Stated Complaint: SI w/ plan Time Seen by Provider: 05/16/22 10:08 PFSH ED PFSH: Medical History COPD (chronic obstructive pulmonary disease) Hypertension Tobacco abuse Surgical History History of appendectomy History of cataract surgery Family History Mother CAD (coronary artery disease) Social History Smoking and tobacco status: current every day smoker Alcohol intake: never Course Vital Signs: Vital signs: Vital Signs Temperature 97.2 F L 05/16/22 10:06 Pulse Rate 111 H 05/17/22 11:58 Respiratory Rate 16 05/17/22 11:58 Blood Pressure 94/64 05/17/22 11:58 Pulse Oximetry 93 05/17/22 11:58 Oxygen Delivery Me thod 05/17/22 11:58 Oxygen Flow Rate 3 05/17/22 11:58 MDM - Psych Medical Decision Making 58-year-old female who presents with suicidal ideations. The patient had a definite plan, wanting to shoot herself with a gun. She will definitely need psychiatric placement. She is medically cleared for psych placement and has been accepted at [facility]. Lab Data 05/16/22 11:05 05/16/22 11:05 Radiology Impressions Chest X-Ray 05/16/22 10:09
[2022-05-16 10:55] LABS: Add Urine Microscopic? NO; Charge for UA Resulting for Rev
[2022-05-16 11:00] LABS: Bilirubin Urine Neg (Negative); Blood Urine Neg (Negative); Glucose Urine UA Norm (Normal); Ketones Urine Negative (Negative); Leukocyte Esterase Urine Negative (Negative); Nitrate Urine Negative (Negative); Protein Urine Neg (Negative); Specific Gravity, Urine 1.015 (1.005-1.030); Urine Appearance Clear (CLEAR); Urine Color Yellow (Yellow); Urobilinogen Urine Norm (Negative); pH Urine 5 (5-7)
--- NOTE | 2022-05-16 11:04 | PC.PHAR ---
PT STS SHE WILL NOT TAKE THE BUSPIRONE 7.5MG ANYMORE DUE TO ITS SIDE EFFECTS- PT ALSO STS SHE TAKES VITAMIN D3 125 EVERYDAY WAS PRESCRIBED ONCE WEEKLY
--- NOTE | 2022-05-16 11:05 | PC.NURSE ---
Called patient's Ed Margie about removing firearms from home due to 's suicidal ideations with plan to shoot herself. stated It's my right as an [place] Citizen to keep them and I have them hung up on the wall. I'm not removing them.
[2022-05-16 11:07] LABS: Amphetamines Screen Urine Negative (Negative); Barbiturates Screen Urine Negative (Negative); Benzodiazepines Screen Urine Negative (Negative); Cocaine Screen Urine Negative (Negative); Opiate Screen Urine Negative (Negative); PCP Screen Urine Positive (Negative); THC Screen Urine Negative (Negative)
[2022-05-16 11:29] LABS: SARS Covid-2 Antigen negative (Negative)
[2022-05-16 11:43] LABS: Basophils # 0.1 10^3/uL (0.0-0.1); Basophils % 0.7 %; Eosinophils # 0.4 10^3/uL (0.0-0.8); Eosinophils % 4.7 %; Hematocrit 37.8 % (37.0-47.0); Hemoglobin 12.3 g/dL (11.5-15.3); Lymphocytes # 1.8 10^3/uL (0.8-4.8); Lymphocytes % 24.5 %; Mean Corpuscular HGB Conc 32.5 g/dL (30.0-36.0); Mean Corpuscular Hemoglobin 30.7 pg (28.0-34.0); Mean Corpuscular Volume 94.3 fl (81-99); Mean Platelet Volume 9.8 fL (7.4-10.4); Monocytes # 0.6 10^3/uL (0.2-0.9); Monocytes % 7.6 %; Neutrophils # 4.58 10^3/uL (1.8-7.7); Neutrophils % 62.1 %; Nucleated Red Blood Cells % 0 %; Platelet Count 274 10^3/cmm (130-400); Red Blood Count 4.01 10^6/uL (4.1-5.3); Red Cell Distribution Width 14.4 % (12.1-15.1); White Blood Count 7.4 10^3/uL (4.0-10.0)
[2022-05-16 11:59] LABS: INR 0.95 (0.8-1.2)
[2022-05-16 12:10] LABS: Alanine Aminotransferase 10 U/L (0-33); Albumin Level 4.2 g/dL (3.5-5.2); Alkaline Phosphatase 57 U/L (35-105); Aspartate Amino Transferase 14 U/L (0-32); Blood Urea Nitrogen 10 mg/dL (8-23); Calcium 10.3 mg/dL (8.5-10.5); Carbon Dioxide 25 mmol/L (22-29); Chloride 98 mmol/L (98-107); Globulin 2.9 g/dL (1.3-4.6); Glomerular Filtration Rate 83.2 mL/min (90-130); Glucose 100 mg/dL (65-115); Osmolality Calculated 277 mOsm/kg (285-295); Sodium 134 mmol/L (136-145); Thyroid Stimulating Hormone 0.64 uIU/mL (0.27-4.20); Total Bilirubin 0.6 mg/dL (0.15-1.2); Total Protein 7.1 g/dL (6.6-8.7)
[2022-05-16 12:13] LABS: Acetaminophen < 5.0 ug/mL (10-30); Alcohol Level < 10 mg/dL (0-10); Salicylate < 0.3 mg/dL (3-10)
[2022-05-16 15:54] VITALS: BP 122/66; PULSE 71; RESP 16; O2SAT 98
--- NOTE | 2022-05-16 15:58 | DCPLANNER ---
Addendum entered by Radha Hansen 05/17/22 11:45: Patient was accepted at [facility] Addendum entered by Rahda Hansen 05/17/22 09:36: [facility] health - no beds Addendum entered by Radha Hansen 05/17/22 09:27: [facility] called trimming caser requesting additional information. The facility requested an EKG, flu swab, and alcohol level. Addendum entered by Radha Hansen 05/17/22 09:21: Patient is still in the ER, trimming caser called and faxed patients information to the following facilities: [facility] - voluntary only [facility] - no beds [facility] - [facility] beds [facility] - no beds [facility] - faxed information [facility] - no beds, but wanted information faxed pending discharges - faxed information [facility] - no beds [facility] - no beds [facility] - faxed information [facility] - no [facility] Original Note: division service manager was asked to look for psych placement for patient. The following facilities were called and patients information faxed to: [facility] - faxed information 3:50 [facility] - male beds only [facility] - no beds [facility] - no beds [facility] - faxed information 3:50 [facility] - no beds [facility] - full but faxed information to be reviewed - faxed at 3:53 [facility] - no beds [facility] - voluntary only [facility] - no beds [facility] no beds call back in the morning [facility] - faxed information 3:52 [facility] no beds
[2022-05-16] MEDS: nicotine 21 mg Patch 1 PATCH TRANSDERMA (16:17)
[2022-05-16] MEDS: LORazepam 2 mg Tablet PO (16:17)
[2022-05-16] MEDS: albuterol 8 gm MDI 2 PUFF INHALATION (16:21)
[2022-05-16 16:22] VITALS: PULSE 99; RESP 18; O2SAT 92
[2022-05-16 16:24] VITALS: PULSE 98
[2022-05-16 17:59] VITALS: BP 132/74; PULSE 71; RESP 16
--- NOTE | 2022-05-16 18:36 | PC.NURSE ---
Pt given lunch and dinner trays. Pt was calm during shift, slept most of the day
[2022-05-17 00:14] VITALS: PULSE 100; RESP 20; O2SAT 92
[2022-05-17 06:00] VITALS: BP 109/63; PULSE 104; RESP 17; O2SAT 88
[2022-05-17 06:03] LABS: T4 Total 11.2 mcg/dL (5.1-11.9)
[2022-05-17 06:30] VITALS: PULSE 107; RESP 19; O2SAT 93
[2022-05-17 06:41] VITALS: PULSE 102; RESP 16; O2SAT 91
[2022-05-17] MEDS: ipratropium-albuterol 3 mL Neb INHALATION (06:42)
[2022-05-17] MEDS: nicotine 21 mg Patch 1 PATCH TRANSDERMA (08:56)
[2022-05-17] MEDS: LORazepam 1 mg Tablet PO (08:57)
[2022-05-17] MEDS: famotidine 20 mg Tablet PO (08:57)
--- NOTE | 2022-05-17 09:44 | ECG_ITS ---
[facility] Test Date: 2022-05-17 Pat Name: Eleni Hanson Department: Room: Gender: Female Invasive Cardiologist: : 1955 Requested By: Delaney Rawls Order Number: [id number] Jese MD: Emily Lares M.D. Measurements Intervals [place] Rate: 108 P: 84 HI: 165 QRS: 87 QRSD: 74 T: 67 QT: 325 QTc: 437 Interpretive Statements SINUS TACHYCARDIA Compared to ECG 02/22/2022 23:20:31 Sinus rhythm no longer present Electronically Signed On 05-17-2022 18:11:19 [employer] MANAGER by Emily Lares M.D. [email or web address]
[2022-05-17 09:52] VITALS: BP 141/73; PULSE 111; RESP 20; O2SAT 92
[2022-05-17 10:01] LABS: Influenza A by IFA negative (Negative); Influenza B by IFA negative (Negative)
--- NOTE | 2022-05-17 11:19 | PC.NURSE ---
Pts pulse ox is 88% on room air. Pt is on 3lpm and is at 92%
[2022-05-17 11:58] VITALS: BP 94/64; PULSE 111; RESP 16; O2SAT 93
== END 2022-05-17 12:42 ==
PROVIDERS: Family Medicine; Emergency Provider Emergency Medicine; PCP Family Medicine
DX: R45.851 Suicidal ideations (principal)
CPT/HCPCS: 36415; 71045; 80053; 80306; 80307; 81003; 84436; 84443; 85025; 85610; 87426; 87804; 93005; 94640; 99285; J3535

== ENCOUNTER 2023-11-28 17:31 | Emergency (ER) | payer MEDICARE, MEDICAID, SELFPAY ==
--- NOTE | 2023-11-28 17:32 | XRR_ITS ---
PROCEDURE INFORMATION: Exam: XR Left Shoulder Exam date and time: 11/28/2023 5:42 PM Age: 68 years old Clinical indication: Injury or trauma; Fall; Blunt trauma (contusions or hematomas); Shoulder; Left TECHNIQUE: Imaging protocol: Radiologic exam of the left shoulder. Views: 2 or more views. COMPARISON: CR XR chest 1V portable [id number] 05/16/2022 10:37 AM FINDINGS: Bones/joints: Anterior shoulder dislocation with displaced fracture through the greater tuberosity of the humerus. Soft tissues: Soft tissue swelling of the shoulder. XR/XR shoulder LT min 2V* [id number] IMPRESSION: Anterior shoulder dislocation with displaced fracture through the greater tuberosity of the humerus.
[2023-11-28 17:33] VITALS: BP 143/74; PULSE 81; RESP 16; TEMP 37; O2SAT 95; BMI 25.0
--- NOTE | 2023-11-28 17:39 | CTR_ITS ---
PROCEDURE INFORMATION: Exam: CT Cervical Spine Without Contrast Exam date and time: 11/28/2023 5:50 PM Age: 68 years old Clinical indication: Injury or trauma; Blunt trauma; Patient HX: Sonu said her neck was hurting after fall but not now TECHNIQUE: Imaging protocol: Computed tomography of the cervical spine without contrast. Radiation optimization: All CT scans at this facility use at least one of these dose optimization techniques: automated exposure control; mA and/or kV adjustment per patient size (includes targeted exams where dose is matched to clinical indication); or iterative reconstruction. COMPARISON: CT head wo con* [id number] 11/28/2023 5:50 PM RADIATION DOSE METRICS: Total DLP (mGy-cm): 199.4 FINDINGS: Bones: No acute fracture. Normal alignment. No significant disc bulge or herniation. No severe spinal canal stenosis. Lungs: 5 mm rounded solid nodule noted in the right lung apex. Thyroid: Multinodular goiter. Soft tissues: Unremarkable. CT/CT cervical spin wo con* [id number] IMPRESSION: 1. No acute abnormalities of the cervical spine. 2. 5 mm nodule noted in the right lung apex. Optional [address] chest can be obtained for reevaluation.
--- NOTE | 2023-11-28 17:39 | CTR_ITS ---
PROCEDURE INFORMATION: Exam: CT Head Without Contrast Exam date and time: 11/28/2023 5:50 PM Age: 68 years old Clinical indication: Injury or trauma; Blunt trauma (contusions or hematomas); Patient HX: Patient has had two recent falls, where she fell and hit her forehead. Small abrasion to forhead. ; Additional info: Fall TECHNIQUE: Imaging protocol: Computed tomography of the head without contrast. Radiation optimization: All CT scans at this facility use at least one of these dose optimization techniques: automated exposure control; mA and/or kV adjustment per patient size (includes targeted exams where dose is matched to clinical indication); or iterative reconstruction. COMPARISON: CT cervical spin wo con* [id number] 11/28/2023 5:50 PM RADIATION DOSE METRICS: Total DLP (mGy-cm): 1082 FINDINGS: Brain: No hemorrhage. No edema. Mild diffuse cerebral atrophy and sequela of chronic small vessel ischemic disease. No mass effect. Cerebral ventricles: No ventriculomegaly. Paranasal sinuses: Visualized sinuses are unremarkable. No fluid levels. Mastoid air cells: Visualized mastoid air cells are well aerated. Bones: Unremarkable. No acute fracture. Soft tissues: Forehead contusion. CT/CT head wo con* [id number] IMPRESSION: No acute intracranial abnormality.
--- NOTE | 2023-11-28 17:40 | W.ED.FALL ---
HPI - Fall General: Chief Complaint: Extremity Injury, Upper Stated Complaint: Fall/ LT shoulder pain Time Seen by Provider: 11/28/23 17:32 Source: patient and EMS Mode of arrival: EMS Limitations: no limitations History of Present Illness: 68-year-old female states she had a fall today at home states she had landed on her left shoulder she has left shoulder pain is much worse with movement she had a fall 2 days ago 2 she did hit her head she had bruising to her head she denies any lower extremity pain she does have a slight headache and neck pain. Majority of her pain is in the left shoulder Associated symptoms-after fall: Reports headache(s) and neck pain; Denies abdominal pain or chest pain Review of Systems Const: Denies: fever(s), chills, body aches or change in appetite ENMT: Denies: throat pain or dental pain Card: Denies: chest pain Resp: Denies: dyspnea GI: Denies: abdominal pain, nausea, vomiting or diarrhea : Denies: dysuria Musc: Reports: neck pain and extremity pain; Denies: back pain Skin/Breast: Denies: rash Neuro: Reports: headache(s) Psych: Denies: depression PFSH ED PFSH: Medical History Tobacco abuse COPD (chronic obstructive pulmonary disease) Hypertension Surgical History History of appendectomy History of cataract surgery Family History Mother CAD (coronary artery disease) Social History Smoking and tobacco/nicotine status: current every day tobacco/nicotine user Alcohol intake: never Substance/Drug Use: never Physical Exam Const: COMMON NORMALS: no acute distress, patient oriented x3 and healthy appearing HENMT: COMMON NORMALS: normocephalic and atraumatic HEAD & SCALP: normocephalic and atraumatic Neck/C-Spine: COMMON NORMALS: full ROM and supple Chest: COMMONS NORMALS: normal inspection of the chest Resp: COMMON NORMALS: normal respiratory effort, No retractions, No use of accessory muscles and clear to auscultation bilaterally AUSCULTATION: clear to auscultation bilaterally Cardio: COMMON NORMALS: regular rate, regular rhythm and No murmurs present (Cardio) RATE: regular rate RHYTHM: regular rhythm Extremity: NARRATIVE EXTREMITY EXAM: Tenderness noted to left shoulder Neuro: COMMON NORMALS: patient oriented x3, moves all extremities and no focal motor deficits Psych: COMMON NORMALS: mental status grossly normal, Normal thought process present and cooperative THOUGHT PROCESS: Normal thought process present Skin: COMMON NORMALS: no rashes or lesions noted and no wounds GENERAL SKIN EXAM: no rashes or lesions noted Course Vital Signs: Vital signs: Vital Signs Temperature 98.6 F 11/28/23 17:33 Pulse Rate 76 11/28/23 18:11 Respiratory Rate 16 11/28/23 18:16 Blood Pressure 143/74 11/28/23 17:33 Pulse Oximetry 99 11/28/23 18:16 Oxygen Delivery Me thod Nasal Cannula 11/28/23 18:11 Oxygen Flow Rate 3 11/28/23 18:11 MDM - Fall Medical Decision Making Patient presents here with left shoulder dislocation along with fracture did reduce the dislocation patient placed in a shoulder immobilizer she is follow-up with orthopedics return if worsening she understands agrees to plan. Medical Records I reviewed the patient's medical records. Lab Data Radiology Impressions Cervical Spine CT 11/28/23 17:39 IMPRESSION: 1. No acute abnormalities of the cervical spine. 2. 5 mm nodule noted in the right lung apex. Optional [address] chest can be obtained for reevaluation. Head CT 11/28/23 17:39 IMPRESSION: No acute intracranial abnormality. Elbow X-Ray 11/28/23 17:45 IMPRESSION: No acute osseous abnormalities. No radiology studies performed this visit Discharge Plan Discharge Patient Disposition: Home Clinical Impression: Closed dislocation of left shoulder, Closed fracture of left proximal humerus Condition: Stable Prescriptions: New hydrocodone-acetaminophen 5-325 mg tablet 1 tab PO Q6H PRN (Reason: pain) Qty: 14 0RF No Action famotidine 40 mg tablet 40 mg PO DAILY tramadol 50 mg tablet 50 - 100 mg PO BID PRN (Reason: Pain) benzonatate 100 mg capsule 100 mg PO TID PRN (Reason: Cough) albuterol sulfate 90 mcg/actuation HFA aerosol inhaler 2 puff INHALATION Q4H PRN (Reason: Wheezing) Incruse Ellipta 62.5 mcg/actuation blister with device 1 inh INHALATION DAILY cholecalciferol (vitamin D3) [Vitamin D3] 125 mcg (5,000 unit) Tablet 125 unit PO DAILY ibuprofen 800 mg tablet 800 mg PO TID PRN (Reason: Pain) potassium chloride 20 mEq/15 mL liquid 20 meq PO DAILY buspirone 7.5 mg tablet 7.5 mg PO TID lisinopril-hydrochlorothiazide 10-12.5 mg tablet 1 tab PO DAILY Breo Ellipta 200-25 mcg/dose blister with device 1 inh INHALATION BID Discharge Orders: Discharge ED (Routine); Ordered 11/28/23 Ordered By: Addi Little Referrals: Delaney Patricia [Referring] - Mandie Ortiz MD [Physician] - 1-3 days Discharge Diet: Advance as tolerated Discharge Activity: Resume usual activity Patient Instructions: Shoulder Dislocation (ED), Opioid Safety Coding Level of Care Code ED Market Research Executive for [facility]
[2023-11-28 17:41] VITALS: PULSE 75; RESP 16; O2SAT 97
--- NOTE | 2023-11-28 17:45 | XRR_ITS ---
PROCEDURE INFORMATION: Exam: XR Left Elbow Exam date and time: 11/28/2023 6:00 PM Age: 68 years old Clinical indication: Injury or trauma; Fall; Blunt trauma (contusions or hematomas); Elbow; Left TECHNIQUE: Imaging protocol: Radiologic exam of the left elbow. Views: 3 or more views. COMPARISON: CR (CHEST, ) 11/28/2023 5:42 PM FINDINGS: Bones/joints: Normal. Soft tissues: Soft tissue swelling at the elbow. XR/XR elbow LT min 3V* [id number] IMPRESSION: No acute osseous abnormalities.
[2023-11-28 18:11] VITALS: PULSE 76; RESP 14; O2SAT 98
[2023-11-28] MEDS: ondansetron 2 mg/ML SDV 2 mL 4 MG IVP (18:15)
[2023-11-28] MEDS: dexamethasone 10 mg/mL INJ IVP (18:15)
[2023-11-28 18:16] VITALS: RESP 16; O2SAT 99
[2023-11-28] MEDS: morphine 4 mg/mL SDV 1 mL IVP (18:16)
[2023-11-28] MEDS: propofol 10 mg/mL SDV 20 mL 100 MG IVP (18:48)
--- NOTE | 2023-11-28 18:54 | XRR_ITS ---
PROCEDURE INFORMATION: Exam: XR Left Shoulder Exam date and time: 11/28/2023 6:58 PM Age: 68 years old Clinical indication: Injury or trauma; Other: Post reduction TECHNIQUE: Imaging protocol: Radiologic exam of the left shoulder. Views: 1 view. COMPARISON: CR (CHEST, ) 11/28/2023 5:42 PM FINDINGS: Bones/joints: The glenohumeral joint has been reduced. Mildly displaced fracture in the lateral humeral head. Soft tissues: Normal. XR/XR shoulder LT 1V [id number] IMPRESSION: 1. Reduction of the left glenohumeral joint. 2. Lateral humeral head fracture.
[2023-11-28] MEDS: propofol 10 mg/mL SDV 20 mL 70 MG IVP (19:02)
[2023-11-28 21:55] VITALS: BP 129/60; PULSE 72; RESP 18
--- NOTE | 2023-11-29 07:18 | DCPLANNER ---
Message sent to Ortho/Diana for follow up-Fall Shoulder dislocation.
--- NOTE | 2023-11-29 17:41 | W.ED.EXTPRO ---
HPI - Extremity Problem General: Chief complaint: Extremity Injury, Upper Stated complaint: Fall/ LT shoulder pain Time Seen by Provider: 11/28/23 17:32 Source: patient and EMS Mode of arrival: EMS Limitations: no limitations History of Present Illness: . [facility] ED PFSH: Medical History Tobacco abuse COPD (chronic obstructive pulmonary disease) Hypertension Surgical History History of appendectomy History of cataract surgery Family History Mother CAD (coronary artery disease) Social History Smoking and tobacco/nicotine status: current every day tobacco/nicotine user Alcohol intake: never Substance/Drug Use: never Procedures Orthopedic Joint Reduction Joint #1: Time Out Performed: Yes Side: left Joint Reduction Location: shoulder Shoulder Technique Used (if applicable): traction/counter-traction Post-reduction neuro exam: intact Post-reduction vascular: intact Post Reduction X-Ray Obtained: Yes Post Reduction X-Ray Results: reduced Splint Applied: Yes Patient Tolerated Procedure: well Procedural Sedation Indication: fracture/dislocation reduction ASA Class: II Time of Last PO Intake: 12:00 Preparation: playground monitor applied and pulse oximeter IV Propofol dose (mg): 170 Patient Tolerated Procedure: well Complications: none Course Vital Signs: Vital signs: Vital Signs Temperature 98.6 F 11/28/23 17:33 Pulse Rate 72 11/28/23 21:55 Respiratory Rate 18 11/28/23 21:55 Blood Pressure 129/60 11/28/23 21:55 Pulse Oximetry 99 11/28/23 18:16 Oxygen Delivery Me thod Room Air 11/28/23 18:50 Oxygen Flow Rate 3 11/28/23 18:11 MDM - Extremity (Nontraumatic) Medical Decision Making Addendum to previous note including procedural sedation and shoulder reduction Lab Data Radiology Impressions Cervical Spine CT 11/28/23 17:39 IMPRESSION: 1. No acute abnormalities of the cervical spine. 2. 5 mm nodule noted in the right lung apex. Optional [address] chest can be obtained for reevaluation. Head CT 11/28/23 17:39 IMPRESSION: No acute intracranial abnormality. Elbow X-Ray 11/28/23 17:45 IMPRESSION: No acute osseous abnormalities. Shoulder X-Ray 11/28/23 18:54 IMPRESSION: 1. Reduction of the left glenohumeral joint. 2. Lateral humeral head fracture. All radiology interpretation(s) finalized by discharge Discharge Plan Discharge Patient Disposition: Home Clinical Impression: Closed dislocation of left shoulder, Closed fracture of left proximal humerus Condition: Stable Prescriptions: New hydrocodone-acetaminophen 5-325 mg tablet 1 tab PO Q6H PRN (Reason: pain) Qty: 14 0RF No Action famotidine 40 mg tablet 40 mg PO DAILY tramadol 50 mg tablet 50 - 100 mg PO BID PRN (Reason: Pain) benzonatate 100 mg capsule 100 mg PO TID PRN (Reason: Cough) albuterol sulfate 90 mcg/actuation HFA aerosol inhaler 2 puff INHALATION Q4H PRN (Reason: Wheezing) Incruse Ellipta 62.5 mcg/actuation blister with device 1 inh INHALATION DAILY cholecalciferol (vitamin D3) [Vitamin D3] 125 mcg (5,000 unit) Tablet 125 unit PO DAILY ibuprofen 800 mg tablet 800 mg PO TID PRN (Reason: Pain) potassium chloride 20 mEq/15 mL liquid 20 meq PO DAILY buspirone 7.5 mg tablet 7.5 mg PO TID lisinopril-hydrochlorothiazide 10-12.5 mg tablet 1 tab PO DAILY Breo Ellipta 200-25 mcg/dose blister with device 1 inh INHALATION BID Discharge Orders: Discharge ED (Routine); Ordered 11/28/23 Ordered By: Addi Little Referrals: Delaney Patricia [Referring] - Mandie Ortiz MD [Physician] - 1-3 days Discharge Diet: Advance as tolerated Discharge Activity: Resume usual activity Patient Instructions: Shoulder Dislocation (ED), Opioid Safety Coding Level of Care Code ED Clinical Documentation Improvement Specialist for Silva Khan
== END 2023-11-28 20:03 | disposition home or self-care (01) ==
PROVIDERS: Emergency Provider Emergency Medicine
DX: S42.252A Displaced fracture of greater tuberosity of left humerus, initial encounter for closed fracture (principal); I10 Essential (primary) hypertension; J44.9 Chronic obstructive pulmonary disease, unspecified; Z79.899 Other long term (current) drug therapy; W19.XXXA Unspecified fall, initial encounter; Y92.009 Unspecified place in unspecified non-institutional (private) residence as the place of occurrence of the external cause; S43.085A Other dislocation of left shoulder joint, initial encounter; S00.93XA Contusion of unspecified part of head, initial encounter; Z72.0 Tobacco use
CPT/HCPCS: 23665; 70450; 72125; 73020; 73030; 73080; 96374; 96375; 99152; 99285; J1100; J2270; J2405; J2704

== ENCOUNTER → 2023-12-11 08:15 | Outpatient (BNVA) | payer MEDICARE, MEDICAID, SELFPAY | PROVIDERS: PCP Nurse Practitioner Family; Referring Provider Emergency Medicine; Visit Provider Specialist | DX: S42.292A Other displaced fracture of upper end of left humerus, initial encounter for closed fracture; S43.015A Anterior dislocation of left humerus, initial encounter; W19.XXXA Unspecified fall, initial encounter | CPT/HCPCS: 73030; 99205 ==

== ENCOUNTER 2024-04-02 14:01 | Emergency (ER) | payer MEDICARE, MEDICAID, SELFPAY ==
[2024-04-02 14:05] VITALS: BP 155/80; PULSE 103; RESP 18; TEMP 37; O2SAT 94; BMI 17.6
--- NOTE | 2024-04-02 14:10 | CT_ITS ---
WS: [id number] CT HEAD NONCONTRAST HISTORY: trauma TECHNIQUE: Contiguous axial imaging performed through the brain. Bone and soft tissue windows. Sagitt al and coronal reformats reviewed. All CT scans at [facility] use at least one of these dose optimization techniques: automated exposure control; mA and/or kV adjustment per patient size (includ es targeted exams where dose is matched to clinical indication); or iterative reconstruction. DLP: 2154.56 mGy.cm COMPARISON: 11/28/2023 No acute intracranial hemorrhage, midline shift or mass effect. Mild atrophy and mild small vessel disease. Ventricles: Normal size with no hydrocephalus. No inferior displacement of the cerebellar tonsils. Paranasal sinuses: As visualized are clear. Mastoid air cells: Well pneumatized. Calvarium and scalp: Skull is intact with no soft tissue edema or swelling. CT/CT head wo con* [id number] IMPRESSION: 1. No acute intracranial hemorrhage or edema. 2. Mild atrophy and small vessel disease.
--- NOTE | 2024-04-02 14:10 | XRR_ITS ---
PROCEDURE INFORMATION: Exam: XR Left Shoulder Exam date and time: 04/02/2024 2:30 PM Age: 68 years old Clinical indication: Injury or trauma; Fall; Blunt trauma (contusions or hematomas); Shoulder; Left; Additional info: Fall/trauma TECHNIQUE: Imaging protocol: Radiologic exam of the left shoulder. Views: 2 or more views. COMPARISON: CR XR shoulder LT min 2V* [id number] 12/11/2023 8:17 AM FINDINGS: Bones/joints: Chronically healed fracture of the greater tuberosity with chronic superior/posterior displacement of the fractured fragments, possibly extending intra-articularly. No new fractures. No joint dislocation. Bone demineralization. Soft tissues: Normal. XR/XR shoulder LT min 2V* [id number] IMPRESSION: No acute findings.
--- NOTE | 2024-04-02 14:10 | XRR_ITS ---
PROCEDURE INFORMATION: Exam: XR Left Hand Exam date and time: 04/02/2024 2:33 PM Age: 68 years old Clinical indication: Injury or trauma; Fall; Blunt trauma (contusions or hematomas); Hand; Left; Additional info: Fall/trauma TECHNIQUE: Imaging protocol: Radiologic exam of the left hand. Views: 3 or more views. COMPARISON: CR XR elbow LT min 3V* [id number] 11/28/2023 6:00 PM FINDINGS: Bones/joints: Bone demineralization. Mild osteoarthritis of the distal interphalangeal joints. Mild osteoarthritis 1st carpometacarpal joint. No acutely displaced fractures. No joint dislocation. Soft tissues: Severe masslike swelling of the dorsal hand and wrist measuring 16.4 x 3.5 cm. XR/XR hand LT min 3V* [id number] IMPRESSION: Severe posttraumatic dorsal hand and wrist swelling with a highly suspected large subcutaneous hematoma.
--- NOTE | 2024-04-02 14:10 | CT_ITS ---
WS: [id number] CT CERVICAL SPINE HISTORY: fall/trauma TECHNIQUE: Contiguous 2.0 mm axial imaging performed through the entire cervical spine. Sagittal and coronal reformats also performed. All CT scans at [facility] use at least one of these dose o ptimization techniques: automated exposure control; mA and/or kV adjustment per patient size (include s targeted exams where dose is matched to clinical indication); or iterative reconstruction. DLP: 2154.56 mGy.cm COMPARISON: 11/28/2023 Normal cervical alignment. Disc spaces are slightly narrowed with small endplate osteophytes. Disc sp gabriel narrowing is most significant at C5-6. Facets are normally aligned but narrowed. Craniocervical j unction is normal. Lateral masses of C1 and C2 are aligned. Odontoid is intact. Incomplete fusion C1 posterior arch. C2-C3: Moderate LEFT facet arthritis. C3-C4: Bilateral facet arthritis. C4-C5: Bilateral facet arthritis and LEFT foraminal narrowing. C5-C6: Osteophytic ridging with moderate to severe RIGHT foraminal stenosis. C6-C7: Normal. C7-T1: Normal. 5 mm nodule reidentified at the RIGHT apex. Bilateral thyroid nodules. Likely multinodular goiter. CT/CT cervical spin wo con* [id number] IMPRESSION: 1. No acute cervical spine fracture. 2. Facet joint arthropathy. 3. Moderate to severe RIGHT foraminal stenosis C5-6.
--- NOTE | 2024-04-02 14:10 | XRR_ITS ---
PROCEDURE INFORMATION: Exam: XR Left Wrist Exam date and time: 04/02/2024 2:34 PM Age: 68 years old Clinical indication: Injury or trauma; Fall; Blunt trauma (contusions or hematomas); Wrist; Left; Additional info: Fall/trauma TECHNIQUE: Imaging protocol: Radiologic exam of the left wrist. Views: 3 or more views. COMPARISON: CR XR hand LT min 3V* [id number] 04/02/2024 2:33 PM FINDINGS: Bones/joints: Osseous anatomic alignment is well preserved. No acutely displaced fracture or dislocation. Joint spaces are well preserved. Soft tissues: Severe masslike dorsal hand and wrist swelling measuring 14.3 x 3.8 cm. XR/XR wrist LT min 3V* [id number] IMPRESSION: Severe posttraumatic dorsal hand and wrist swelling with very high suspicion of a large subcutaneous hematoma.
--- NOTE | 2024-04-02 14:11 | ED_ITS ---
HPI - Fall General: Chief Complaint: Fall Stated Complaint: Fall, Head injury , Hand injury Time Seen by Provider: 04/02/24 14:04 Source: patient Mode of arrival: EMS Limitations: no limitations History of Present Illness: Patient is a 68-year-old female presents to ED today via EMS following a fall. Patient states she was bent over when she toppled over . She does report striking her head but no LOC. There were no complaints of chest pain, shortness of breath, difficulty breathing, palpitations, lightheadedness/dizziness. She states she struck her left hand on a wall/drywall and sustained a large skin tear and hematoma to the dorsum of the left hand. She is not on anticoagulation. Tetanus is reportedly up-to-date. She complains of pain to the hand and wrist as well as her left shoulder. She did have a left shoulder dislocation back in November. She states orthopedist had recommended surgery but she had declined this. She has no complaints of neck or back pain. Patient mildly smells of alcohol upon arrival. She states she did drink last night and had one drink today. MD complaint: fall Onset (ago): hour(s) Fall from: standing Fall witnessed: yes, by family Place fall occurred: home Loss of consciousness: None Prolonged down time: no Symptoms prior to fall: none Context: alcohol use Location of injury: head Location of injury - extremities: Left: shoulder and hand Severity: moderate Associated symptoms-after fall: Reports no associated symptoms; Denies abdominal pain, chest pain, headache(s), hematuria, lightheadedness or neck pain Related Data Home Medications Medication Instructions Recorded Confirmed albuterol sulfate 90 mcg/actuation 2 puff inhalation Q4H PRN Wheezing 08/20/19 12/11/23 aerosol inhaler benzonatate 100 mg capsule 100 mg PO TID PRN Cough 08/20/19 12/11/23 famotidine 40 mg tablet 40 mg PO DAILY 08/20/19 12/11/23 umeclidinium 62.5 mcg/actuation 1 inh inhalation DAILY 08/20/19 12/11/23 blister powder for inhalation (Incruse Ellipta) cholecalciferol (vitamin D3) 125 125 unit PO DAILY 09/09/19 12/11/23 mcg (5,000 unit) tablet (Vitamin D3) fluticasone furoate 200 1 inh inhalation BID 05/16/22 12/11/23 mcg-vilanterol 25 mcg/dose inhalation powder (Breo Ellipta) ibuprofen 800 mg tablet 800 mg PO TID PRN Pain 05/16/22 12/11/23 Previous Rx's Medication Instructions Recorded hydrocodone 5 mg-acetaminophen 325 1 tab PO Q6H PRN pain #14 tabs 11/28/23 mg tablet Allergies Allergy/AdvReac Type Severity Reaction Status Date / Time bacitracin Allergy ALGY-Hives Verified 12/11/23 07:54 [From Neosporin ([id number])] buspirone Allergy ADR-Agitate Verified 12/11/23 07:54 d clarithromycin [From Biaxin] Allergy ALGY-Hives Verified 12/11/23 07:54 codeine Allergy ALGY-Hives Verified 12/11/23 07:54 iodine Allergy ALGY-Hives Verified 12/11/23 07:54 neomycin Allergy ALGY-Hives Verified 12/11/23 07:54 [From Neosporin ([id number])] Penicillins Allergy ALGY-Hives Verified 12/11/23 07:54 polymyxin B Allergy ALGY-Hives Verified 12/11/23 07:54 [From Neosporin ([id number])] Review of Systems Eyes: Denies: change in vision, blurry vision, photophobia, eye discharge, fl oaters or seeing flashes ENMT: Denies: throat pain, odynophagia, ear or mastoid pain, ear discharge, nasal discharge, epistaxis or sinus pain Card: Denies: chest pain, palpitations, lightheadedness, syncope or pre- syncope Resp: Denies: dyspnea or pain on inspiration GI: Denies: abdominal pain : Denies: flank pain or hematuria Musc: Reports: extremity pain (L hand), extremity swelling (L hand), joint pain (L wrist, L shoulder) and joint swelling (L wrist); Denies: neck pain or back pain Skin/Breast: Reports: other (skin tear dorsum of L hand) Neuro: Denies: headache(s), numbness in extremities, weakness in extremities, sensory changes or dizziness PFSH ED PFSH: Medical History Tobacco abuse COPD (chronic obstructive pulmonary disease) Hypertension Surgical History History of appendectomy History of cataract surgery Family History Mother CAD (coronary artery disease) Social History Smoking and tobacco/nicotine status: current every day tobacco/nicotine user Alcohol intake: never Substance/Drug Use: never Physical Exam Const: COMMON NORMALS: no acute distress, average body habitus, patient oriented x3, no limitations, healthy appearing, alert and well nourished GENERAL APPEARANCE: cooperative and odor of alcohol detected ORIENTATION/CONSCIOUSNESS: Yes awake, Yes oriented to person, Yes oriented to place and Yes oriented to time HENMT: COMMON NORMALS: normocephalic, atraumatic and TM's normal bilaterally HEAD & SCALP: normal to inspection, normocephalic and atraumatic; no Bess's sign, no hematoma and no raccoon eyes FACE & SINUS: normal facial exam TYMPANIC MEMBRANE: TM's normal bilaterally MOUTH: other (no intraoral injuries noted) Eye: COMMON NORMALS: Equal, round and reactive pupils present and EOMs intact bilaterally GENERAL EYE: appearance normal, both eyes and all related structures and normal light reflex PUPIL: Yes Equal, round and reactive pupils present DIRECT OPHTHALMOSCOPY: Yes normal light reflex Neck/C-Spine: COMMON NORMALS: full ROM GENERAL: Yes normal visual inspection CERVICAL SPINE: Yes cervical ROM normal, No pain with cervical ROM, No Cervical spine tenderness, No step off deformity and No Paracervical muscle tenderness Chest: COMMONS NORMALS: normal inspection of the chest and normal palpation of entire chest wall OTHER: few areas of small old ecchymosis Resp: COMMON NORMALS: normal respiratory effort and clear to auscultation bilaterally AUSCULTATION: clear to auscultation bilaterally Cardio: COMMON NORMALS: regular rate and regular rhythm RATE: regular rate RHYTHM: regular rhythm GI: COMMON NORMALS: Normal to inspection, nondistended, normoactive bowel sounds present, Soft to palpation, non-tender, No hepatosplenomegaly present and no masses INSPECTION: Yes normal to inspection and No abdominal wall ecchymosis AUSCULTATION: Yes normoactive bowel sounds PALPATION: Yes Soft to palpation and Yes No hepatosplenomegaly present Back/Pelvis: COMMON NORMALS: thoracic and lumbar spine normal to inspection, no thoracic nor lumbar tenderness and thoraco-lumbar ROM normal Extremity: GENERAL: Yes normal exam except as noted LEFT UPPER EXTREMITY: Yes wrist (hematoma dorsal L hand/wrist; skin tear) and Yes hand & digits (large hematoma and skin tear dorsal L hand) Left hand and digits: Yes neurovascular exam (normal) OTHER: old skin tear and bruising to R UE Neuro: MURRAY COMA SCALE: document GCS findings [place] coma scale eye opening: Spontaneous [place] coma scale verbal response: Orientated [place] coma scale motor response: Obey commands Murray coma scale total score: 15 COMMON NORMALS: patient oriented x3, CN's II-XII intact bilaterally, moves all extremities, no focal motor deficits, no sensory deficits noted and gait normal SENSORIUM/ORIENTATION: Yes alert, Yes oriented to person, Yes oriented to place and Yes oriented to time SPEECH: speech normal GAIT: Yes Normal gait present Skin: COMMON NORMALS: no rashes or lesions noted GENERAL SKIN EXAM: no rashes or lesions noted TRAUMA: other (large skin tear dorsal L hand) Course Vital Signs: Vital signs: Vital Signs Temperature 98.6 F 04/02/24 14:05 Pulse Rate 103 H 04/02/24 14:05 Respiratory Rate 18 04/02/24 15:00 Blood Pressure 155/80 04/02/24 14:05 Pulse Oximetry 94 04/02/24 14:05 Oxygen Delivery Me thod Room Air 04/02/24 14:05 MDM - Fall Medical Decision Making CT head and cervical spine unremarkable. XR of her left hand and wrist showing no acute fractures. She does have a large posttraumatic hematoma. Blood work initially ordered but patient declines. She would like to go home. Patient has a large skin tear to the dorsum of the left hand overlying the hematoma. There really was not any option for repair given the amount of swelling to the dorsum of the hand as skin tear could not be reapproximated. There would be no way to apply stitches here. Wound was copiously irrigated. Dr. Little also evaluated wound. Bleeding was controlled. Tetanus is up-to-date. Will apply pressure dressing and recommend patient ice and elevate the extremity is much as possible. Will have her follow-up with wound care. Medical Records I reviewed the patient's medical records. Lab Data Radiology Impressions Cervical Spine CT 04/02/24 14:10 IMPRESSION: 1. No acute cervical spine fracture. 2. Facet joint arthropathy. 3. Moderate to severe RIGHT foraminal stenosis C5-6. Hand X-Ray 04/02/24 14:10 IMPRESSION: Severe posttraumatic dorsal hand and wrist swelling with a highly suspected large subcutaneous hematoma. Head CT 04/02/24 14:10 IMPRESSION: 1. No acute intracranial hemorrhage or edema. 2. Mild atrophy and small vessel disease. Shoulder X-Ray 04/02/24 14:10 IMPRESSION: No acute findings. Wrist X-Ray 04/02/24 14:10 IMPRESSION: Severe posttraumatic dorsal hand and wrist swelling with very high suspicion of a large subcutaneous hematoma. All radiology interpretation(s) finalized by discharge Discharge Plan Discharge Patient Disposition: Home Clinical Impression: Fall, Hematoma of left hand, Skin tear of left hand without complication Condition: Stable Prescriptions: No Action famotidine 40 mg tablet 40 mg PO DAILY benzonatate 100 mg capsule 100 mg PO TID PRN (Reason: Cough) albuterol sulfate 90 mcg/actuation HFA aerosol inhaler 2 puff INHALATION Q4H PRN (Reason: Wheezing) Incruse Ellipta 62.5 mcg/actuation blister with device 1 inh INHALATION DAILY cholecalciferol (vitamin D3) [Vitamin D3] 125 mcg (5,000 unit) Tablet 125 unit PO DAILY ibuprofen 800 mg tablet 800 mg PO TID PRN (Reason: Pain) Breo Ellipta 200-25 mcg/dose blister with device 1 inh INHALATION BID hydrocodone-acetaminophen 5-325 mg tablet 1 tab PO Q6H PRN (Reason: pain) Qty: 14 0RF Discharge Orders: Discharge ED (Routine); Ordered 04/02/24 Ordered By: Aurelia Zamora Referrals: Nancy Lamb, [employer] [Primary Care Provider] - Activity Restrictions/Additional Instructions: Leave the pressure dressing to your left hand on over the next 24 to 48 hours. As we discussed, you need to ice and elevate the extremity is much as possible to help with the swelling. Case management should help you follow-up with wound care for further evaluation and management. You need to return to the emergency department for worsening or uncontrollable bleeding, severe pain in the hand, coolness or loss of sensation to the hand, or any other concerns you may have. Coding Level of Care Code ED Continuing Education Specialist for Silva Khan
[2024-04-02] MEDS: ondansetron 2 mg/ML SDV 2 mL 4 MG IVP (14:59)
[2024-04-02 15:00] VITALS: RESP 18
[2024-04-02] MEDS: morphine 4 mg/mL SDV 1 mL IVP (15:00)
[2024-04-02 16:13] VITALS: BP 114/74; PULSE 74; O2SAT 88
--- NOTE | 2024-04-03 06:27 | DCPLANNER ---
Message sent to wound care for follow up treatment large skin tear and hematoma on hand
== END 2024-04-02 16:14 | disposition home or self-care (01) ==
PROVIDERS: Emergency Provider Physician Assistant; PCP Nurse Practitioner Family
DX: S60.222A Contusion of left hand, initial encounter (principal); S61.412A Laceration without foreign body of left hand, initial encounter; J44.9 Chronic obstructive pulmonary disease, unspecified; I10 Essential (primary) hypertension; Z72.0 Tobacco use; W22.8XXA Striking against or struck by other objects, initial encounter
CPT/HCPCS: 70450; 72125; 73030; 73110; 73130; 96374; 96375; 99285; J2270; J2405

== ENCOUNTER → 2024-04-10 08:59 | Outpatient (BNVA) | payer MEDICARE, MEDICAID, SELFPAY | PROVIDERS: PCP Nurse Practitioner Family; Visit Provider Thoracic Surgery (Cardiothoracic Vascular Surgery) | DX: I96 Gangrene, not elsewhere classified (principal); S61.412A Laceration without foreign body of left hand, initial encounter; W19.XXXA Unspecified fall, initial encounter | CPT/HCPCS: 10060; 99213 ==

== ENCOUNTER 2024-04-11 09:06 | Emergency (ER) | payer MEDICARE, MEDICAID, SELFPAY ==
[2024-04-11] VITALS (7 sets, daily range): BP systolic 125–141; BP diastolic 73–86; PULSE 61–77; RESP 18–22; TEMP 36.8; O2SAT 90–97; BMI 25.0
--- NOTE | 2024-04-11 09:14 | XR_ITS ---
WS: [id number] Exam: XR hand LT min 3V* [id number] Date/Time of Exam: 04/11/2024 9:26 AM Reason For Exam: pain No acute fracture. Marked soft tissue swelling over the dorsum of the hand that shows some improvemen t. There also appears to be a soft tissue laceration over the dorsum of the hand. No radiopaque forei gn bodies are seen. XR/XR hand LT min 3V* [id number] IMPRESSION: 1. No sign of fracture or bone destruction. 2. Marked soft tissue swelling over the dorsum of the hand with soft tissue def ect that may represent a laceration or ulcer.
--- NOTE | 2024-04-11 09:38 | W.ED.EXTPRO ---
HPI - Extremity Problem General: Chief complaint: Extremity Injury, Upper Stated complaint: Left Hand Problems Time Seen by Provider: 04/11/24 09:14 History of Present Illness: 68-year-old female presents emergency room from wound care clinic. She was seen earlier this month after a fall she developed a hematoma the dorsum of her left hand. She was referred to refer to wound care clinic where yesterday they did an incision and drainage of the hematoma but were not able to completely drain due to discomfort patient was encouraged to present to the emergency room for further evaluation. She declined to do so but did present this morning. She has not had any fever sweats chills no further trauma. She is not on any anticoagulants. Associated symptoms: Deny chest pain or fever(s) Related Data Home Medications Medication Instructions Recorded Confirmed famotidine 40 mg tablet 40 mg PO DAILY 08/20/19 04/11/24 cholecalciferol (vitamin D3) 125 125 unit PO DAILY 09/09/19 04/11/24 mcg (5,000 unit) tablet (Vitamin D3) fluticasone furoate 200 1 inh inhalation BID 05/16/22 04/11/24 mcg-vilanterol 25 mcg/dose inhalation powder (Breo Ellipta) citalopram 10 mg tablet 10 mg PO DAILY 04/11/24 04/11/24 hydroxyzine HCl 10 mg tablet 10 mg PO TID 04/11/24 04/11/24 Previous Rx's Medication Instructions Recorded hydrocodone 5 mg-acetaminophen 325 1 tab PO BID PRN pain 10 days #20 04/10/24 mg tablet tabs clindamycin HCl 300 mg capsule 300 mg PO QID 10 days #40 caps 04/11/24 mupirocin 2 % topical ointment 1 applic topical DAILY #22 grams 04/11/24 Allergies Allergy/AdvReac Type Severity Reaction Status Date / Time bacitracin Allergy ALGY-Hives Verified 12/11/23 07:54 [From Neosporin ([id number])] buspirone Allergy ADR-Agitate Verified 12/11/23 07:54 d clarithromycin [From Biaxin] Allergy ALGY-Hives Verified 12/11/23 07:54 codeine Allergy ALGY-Hives Verified 12/11/23 07:54 iodine Allergy ALGY-Hives Verified 12/11/23 07:54 neomycin Allergy ALGY-Hives Verified 12/11/23 07:54 [From Neosporin ([id number])] Penicillins Allergy ALGY-Hives Verified 12/11/23 07:54 polymyxin B Allergy ALGY-Hives Verified 12/11/23 07:54 [From Neosporin ([id number])] Review of Systems Const: Denies: fever(s) or chills Card: Denies: chest pain Resp: Denies: dyspnea GI: Denies: abdominal pain : Denies: dysuria, urinary frequency or urinary urgency PFSH ED PFSH: Medical History Tobacco abuse COPD (chronic obstructive pulmonary disease) Hypertension Surgical History History of appendectomy History of cataract surgery Family History Mother CAD (coronary artery disease) Social History Smoking and tobacco/nicotine status: current every day tobacco/nicotine user Alcohol intake: never Substance/Drug Use: never Physical Exam Const: COMMON NORMALS: no acute distress GENERAL APPEARANCE: cooperative and comfortable ORIENTATION/CONSCIOUSNESS: Yes awake, Yes oriented to person, Yes oriented to place and Yes oriented to time HENMT: COMMON NORMALS: normocephalic, atraumatic and hearing grossly normal bilaterally HEAD & SCALP: normocephalic and atraumatic Resp: COMMON NORMALS: normal respiratory effort, No retractions, No use of accessory muscles and clear to auscultation bilaterally AUSCULTATION: clear to auscultation bilaterally Cardio: COMMON NORMALS: regular rate, regular rhythm and No murmurs present (Cardio) RATE: regular rate RHYTHM: regular rhythm Extremity: COMMON NORMALS: no calf tenderness and no pedal edema OTHER: Patient has a large hematoma partially evacuated and the dorsum of the left hand. No localized redness erythema there is a large defect in the center portion of the dorsum of the hand approximately 5 x 7-1/2 cm oblong. No active bleeding. Neuro: SENSORIUM/ORIENTATION: Yes oriented to person, Yes oriented to place and Yes oriented to time Procedures Abscess I/D Site: hand Side (if applicable): left Sedation/analgesia: midazolam and fentanyl Amount of fluid expressed (mL): 150 Irrigation: Yes Packing used?: none Procedural Sedation Indication: other (Evacuation of hematoma) ASA Class: I Time of Last PO Intake: 15:00 Preparation: ekg monitor applied, pulse oximeter, supplemental O2 applied, suction/airway equipment at bedside and IV secured Fentanyl: IV Fentanyl dose (mcg): 25 (25 mcg increments titrated to a total of 100 mcg) Midazolam: IV Midazolam dose (mg): 3 Patient Tolerated Procedure: well Complications: none Course Vital Signs: Vital signs: Vital Signs Temperature 98.3 F 04/11/24 09:27 Pulse Rate 62 04/11/24 17:17 Respiratory Rate 18 04/11/24 15:55 Blood Pressure 127/73 04/11/24 17:17 Pulse Oximetry 91 04/11/24 16:00 Oxygen Delivery Me thod Room Air 04/11/24 17:17 Oxygen Flow Rate 2 04/11/24 12:13 MDM - Extremity (Nontraumatic) Medical Decision Making Reviewed case with Dr. Blevins who seen her in wound care also consult surgery surgery did not feel comfortable draining the hematoma. Dr. Blevins will manage the wound care. He had referred the patient here because he was not able to get adequate anesthesia to evacuate the hematoma the concern is that if the skin remains elevated we will further devascularize risk increased risk of infection and increase the size of the skin defect that will need to heal. The wound does not appear to be infected at this time. Conversation with patient and family. We discussed different options they would prefer to not be transferred at this point. After long discussion of risks and benefits patient consents to conscious sedation for evacuation of hematoma. I did advise her I will not be able to close the wound her skin is too fragile at this point I think it would just worsen the wound creating greater injury to the skin. Conscious sedation evacuated the hematoma approximately 150 mL of clotted blood. No active bleeding no sign of infection. The wound was then irrigated with 1 L of sterile water. Patient tolerated well. Effective conscious sedation. After evacuation of the hematoma the wound was dressed with a Vaseline gauze and wrapped gently with Kerlix. We secured a follow-up with wound care clinic tomorrow morning. Patient was given a dose of vancomycin in the emergency room and discharged home on clindamycin with topical antibiotic ointment to be applied to a dressing and then a dressing applied to the wound this should be done least once daily. CT had been done and showed no abscess there is a large hematoma as noted on physical exam. There is a question of a scaphoid fracture is difficult to tell on exam if the pain that she is having is due to the hematoma or possible scaphoid fracture it is not readily apparent on the CT at this point could be continue to monitor clinically Lab Data I reviewed the patient's lab results. 04/11/24 09:57 04/11/24 09:57 Radiology Impressions Hand X-Ray 04/11/24 09:14 IMPRESSION: 1. No sign of fracture or bone destruction. 2. Marked soft tissue swelling over the dorsum of the hand with soft tissue defect that may represent a laceration or ulcer. Hand CT 04/11/24 11:47 IMPRESSION: 1. Large soft tissue defect dorsal hand with subcutaneous edema likely hematoma. Recommend correlation for cellulitis 2. No drainable abscess or fluid collection. 3. No evidence of active extravasation. 4. Tiny lucency in the dorsal scaphoid may represent a tiny nondisplaced fracture. Recommend interval follow-up and correlation with the wrist pain. Laboratory Results WBC 5.43 10^3/uL (3.29-11.43) 04/11/24 09:57 RBC 4.66 10^6/uL (3.85-5.65) 04/11/24 09:57 Hgb 15.40 g/dL (11.27-16.99) 04/11/24 09:57 Hct 47.9 % (36-47) H 04/11/24 09:57 MCV 102.8 fl (85-98) H 04/11/24 09:57 MCH 33.0 pg (27-33) 04/11/24 09:57 MCHC 32.2 g/dL (30-55) 04/11/24 09:57 RDW 16.3 % (12.1-15.1) H 04/11/24 09:57 Plt Count 160 10^3/cmm (157-399) 04/11/24 09:57 MPV 9.1 fL (7.4-10.4) 04/11/24 09:57 Neut % (Auto) 68.3 % 04/11/24 09:57 Lymph % (Auto) 21.2 % 04/11/24 09:57 [place] % (Auto) 7.6 % 04/11/24 09:57 Eos % (Auto) 2.0 % 04/11/24 09:57 Baso % (Auto) 0.7 % 04/11/24 09:57 Neut # (Auto) 3.71 10^3/uL (1.8-7.7) 04/11/24 09:57 Lymph # (Auto) 1.2 10^3/uL (0.8-4.8) 04/11/24 09:57 [place] # (Auto) 0.4 10^3/uL (0.2-0.9) 04/11/24 09:57 Eos # (Auto) 0.1 10^3/uL (0.0-0.8) 04/11/24 09:57 Baso # (Auto) 0.0 10^3/uL (0.0-0.1) 04/11/24 09:57 Nucleated RBC % (auto) 0 % 04/11/24 09:57 Nucleated RBCs # 0.0 /100WBC 04/11/24 09:57 Sodium 143 mmol/L (136-145) 04/11/24 09:57 Potassium 3.6 mmol/L (3.5-5.1) 04/11/24 09:57 Chloride 103 mmol/L (98-107) 04/11/24 09:57 Carbon Dioxide 31 mmol/L (22-29) H 04/11/24 09:57 Anion Gap 12.6 (5-19) 04/11/24 09:57 BUN 7 mg/dL (8-23) L 04/11/24 09:57 Creatinine 0.4 mg/dL (0.5-0.9) L 04/11/24 09:57 GFR Calculation 157.8 mL/min (90-130) H 04/11/24 09:57 Glucose 115 mg/dL (65-115) 04/11/24 09:57 Calculated Osmolality 295 mOsm/kg (285-295) 04/11/24 09:57 Calcium 8.5 mg/dL (8.5-10.5) 04/11/24 09:57 Total Bilirubin 1.3 mg/dL (0.15-1.2) H 04/11/24 09:57 AST 16 U/L (0-32) 04/11/24 09:57 ALT 7 U/L (0-33) 04/11/24 09:57 Alkaline Phosphatase 75 U/L (35-105) 04/11/24 09:57 Total Protein 5.9 g/dL (6.6-8.7) L 04/11/24 09:57 Albumin 3.7 g/dL (3.5-5.2) 04/11/24 09:57 Globulin 2.2 g/dL (1.3-4.6) 04/11/24 09:57 All radiology interpretation(s) finalized by discharge Discharge Plan Discharge Patient Disposition: Home Clinical Impression: Open wound of hand, Hematoma of left hand Condition: Stable Prescriptions: New clindamycin HCl 300 mg capsule 300 mg PO QID 10 Days Qty: 40 0RF mupirocin 2 % ointment 1 applic topical DAILY Qty: 22 0RF Rx Instructions: Apply to dressing and then apply to the wound once daily No Action hydrocodone-acetaminophen 5-325 mg tablet 1 tab PO BID PRN (Reason: pain) 10 Days Qty: 20 0RF famotidine 40 mg tablet 40 mg PO DAILY cholecalciferol (vitamin D3) [Vitamin D3] 125 mcg (5,000 unit) Tablet 125 unit PO DAILY fluticasone furoate-vilanterol [Breo Ellipta] 200-25 mcg/dose blister with device 1 inh INHALATION BID citalopram 10 mg tablet 10 mg PO DAILY hydroxyzine HCl 10 mg tablet 10 mg PO TID Discharge Orders: Discharge ED (Routine); Ordered 04/11/24 Ordered By: Arjun Mckeon Referrals: Nancy Lamb, CLOUD SYSTEMS ARCHITECT [Primary Care Provider] - Discharge Diet: Usual diet Discharge Activity: Resume usual activity Patient Instructions: Opioid Safety, Pain Management Activity Restrictions/Additional Instructions: Thank you for choosing [facility] for your healthcare needs today. It is very important that you follow up as instructed or that you return to the Emergency Department should you have concerns or if your condition changes or worsens in any way. You were seen in the emergency room with a open wound of your hand with a large hematoma. Hematoma was evacuated and the wound was irrigated. The wound needs to be watched closely for signs of infection because it has been open for extended period of time and cannot be primarily closed at this time. We applied a topical Vaseline gauze and loosely wrapped bandage. You can change the bandage once a day. Apply topical antibiotic ointment to the dressing and applied to the wound once a day. You can wash it under lukewarm running water. You should follow-up with the wound care clinic tomorrow. If you develop a fever or redness or signs of infection at the hand return immediately. Use the pain medicines prescribed to you by Dr. Blevins yesterday as needed do recommend keeping the arm elevated is much as possible Coding Level of Care Code ED Surgical Instrument Repair Specialist for Silva Khan
[2024-04-11 10:06] LABS: Basophils % 0.7 %; Eosinophils # 0.1 10^3/uL (0.0-0.8); Hematocrit 47.9 % (36-47); Lymphocytes # 1.2 10^3/uL (0.8-4.8); Lymphocytes % 21.2 %; Mean Corpuscular HGB Conc 32.2 g/dL (30-55); Mean Corpuscular Volume 102.8 fl (85-98); Mean Platelet Volume 9.1 fL (7.4-10.4); Monocytes # 0.4 10^3/uL (0.2-0.9); Monocytes % 7.6 %; Neutrophils # 3.71 10^3/uL (1.8-7.7); Neutrophils % 68.3 %; Nucleated Red Blood Cells % 0 %; Platelet Count 160 10^3/cmm (157-399); Red Blood Count 4.66 10^6/uL (3.85-5.65); Red Cell Distribution Width 16.3 % (12.1-15.1); White Blood Count 5.43 10^3/uL (3.29-11.43)
[2024-04-11 10:22] LABS: Alanine Aminotransferase 7 U/L (0-33); Albumin Level 3.7 g/dL (3.5-5.2); Alkaline Phosphatase 75 U/L (35-105); Anion Gap 12.6 (5-19); Aspartate Amino Transferase 16 U/L (0-32); Blood Urea Nitrogen 7 mg/dL (8-23); Calcium 8.5 mg/dL (8.5-10.5); Carbon Dioxide 31 mmol/L (22-29); Chloride 103 mmol/L (98-107); Creatinine Clr Calc Pharmacy 68.1668; Globulin 2.2 g/dL (1.3-4.6); Glomerular Filtration Rate 157.8 mL/min (90-130); Glucose 115 mg/dL (65-115); Osmolality Calculated 295 mOsm/kg (285-295); Potassium 3.6 mmol/L (3.5-5.1); Sodium 143 mmol/L (136-145); Total Bilirubin 1.3 mg/dL (0.15-1.2); Total Protein 5.9 g/dL (6.6-8.7)
--- NOTE | 2024-04-11 11:35 | P.CONIM_ITS ---
Providers/Reason For Consult 2 Consulting Physician/Specialty*: Dr. Manzo general surgery Reason for Consult*: Management of open wound dorsum of left hand Primary Care Provider: NORMA Frankel History of Present Illness History of Present Illness Eleni Hanson is a 68 year old female who presented after a fall 2 weeks ago. Patient has seen Dr. Blevins for a left hand dorsal hematoma. Hematoma was evacuated in the office. Patient presents again complaining of pain and swelling. On the dorsum of the left hand she has an open wound which is about 5 cm in diameter with bone exposure. Neurovascularly intact. Medications/Allergies Home Medications Medication Instructions Recorded Confirmed Last Taken Type famotidine 40 mg tablet 40 mg PO DAILY 08/20/19 04/11/24 04/10/24 History cholecalciferol (vitamin D3) 125 125 unit PO DAILY 09/09/19 04/11/24 04/10/24 History mcg (5,000 unit) tablet (Vitamin D3) fluticasone furoate 200 1 inh inhalation BID 05/16/22 04/11/24 04/10/24 History mcg-vilanterol 25 mcg/dose inhalation powder (Breo Ellipta) hydrocodone 5 mg-acetaminophen 325 1 tab PO BID PRN pain 10 days #20 04/10/24 04/11/24 04/11/24 Rx mg tablet tabs citalopram 10 mg tablet 10 mg PO DAILY 04/11/24 04/11/24 04/10/24 History hydroxyzine HCl 10 mg tablet 10 mg PO TID 04/11/24 04/11/24 04/10/24 History Allergies Allergy/AdvReac Type Severity Reaction Status Date / Time bacitracin Allergy ALGY-Hives Verified 12/11/23 07:54 [From Neosporin ([id number])] buspirone Allergy ADR-Agitate Verified 12/11/23 07:54 d clarithromycin [From Biaxin] Allergy ALGY-Hives Verified 12/11/23 07:54 codeine Allergy ALGY-Hives Verified 12/11/23 07:54 iodine Allergy ALGY-Hives Verified 12/11/23 07:54 neomycin Allergy ALGY-Hives Verified 12/11/23 07:54 [From Neosporin ([id number])] Penicillins Allergy ALGY-Hives Verified 12/11/23 07:54 polymyxin B Allergy ALGY-Hives Verified 12/11/23 07:54 [From Neosporin ([id number])] PFSH Acute 2 PFSH: Medical History Tobacco abuse COPD (chronic obstructive pulmonary disease) Hypertension Surgical History History of appendectomy History of cataract surgery Family History Mother CAD (coronary artery disease) Social History Smoking and tobacco/nicotine status: current every day tobacco/nicotine user Alcohol intake: never Substance/Drug Use: never Vitals/I&O/Wt Last Vital Signs Temp 98.3 F 04/11/24 09:27 Pulse 77 04/11/24 09:27 Resp 22 H 04/11/24 09:27 BP 141/75 04/11/24 09:27 Pulse Ox 94 04/11/24 09:27 O2 Del Method Room Air 04/11/24 09:27 Weight last 48 hrs Weight 160 lb Physical Exam 2 Narrative: Left hand: Dorsum with an open wound 5 cm in diameter with bone exposure. Neurovascularly intact. Data 04/11/24 09:57 04/11/24 09:57 A&P Assessment and plan (1) Open wound of hand: Plan 68-year-old female who presents after a fall with a left hand open wound 5 cm in diameter with bone exposure. Surgery consulted for management. This is outside of my scope of practice. I am concerned patient will develop osteomyelitis and will require complex management for coverage of this wound. She needs to be evaluated by hand surgeon, either plastic surgery or orthopedic surgery. Coding Level of Care Code 98417 Diagnoses Open wound of hand S61.409A Time Spent (min) 30
--- NOTE | 2024-04-11 11:47 | CT_ITS ---
WS: [id number] Noncontrast CT LEFT hand TECHNIQUE: Noncontrast CT LEFT hand with coronal and sagittal reformatted images. CLINICAL INFORMATION: hematoma DLP: 125.[address] scans at [facility] use at least one of these dose optimization techniques: automated e xposure control; mA and/or kV adjustment per patient size (includes targeted exams where dose is matc hed to clinical indication); or iterative reconstruction. FINDINGS: Interval debridement of the dorsal hand. Large soft tissue defect in the dorsal soft tissue s. Diffuse soft tissue edema in the dorsal hand compatible with recent trauma and hematoma. Recommend correlation for infection and cellulitis. No drainable fluid collection. No visualized radiopaque fo reign bodies. No evidence of active extravasation. Osteopenia. Degenerative narrowing of the radiocarpal joint.Tiny lucency in the dorsal scaphoid may r epresent a tiny nondisplaced fracture. Recommend interval follow-up and correlation with the wrist pa in. CT/CT hand LT w con [id number] IMPRESSION: 1. Large soft tissue defect dorsal hand with subcutaneous edema likely hematom a. Recommend correlation for cellulitis 2. No drainable abscess or fluid collection. 3. No evidence of active extravasation. 4. Tiny lucency in the dorsal scaphoid may represent a tiny nondisplaced fract ure. Recommend interval follow-up and correlation with the wrist pain.
[2024-04-11] MEDS: methylPREDNISolone sod succ 40 mg/mL INJ IVP (12:21)
[2024-04-11] MEDS: diphenhydrAMINE 50 mg/mL SDV 1mL IVP (12:21)
[2024-04-11] MEDS: iohexol 350 mg/mL 500 mL Btl (per mL) IV (12:47)
[2024-04-11] MEDS: midazolam 1 mg/mL INJ 2 mL 3 MG IVP (14:23)
[2024-04-11] MEDS: fentaNYL 50 mcg/mL INJ 2mL 100 MCG IVP (14:24)
[2024-04-11] MEDS: vancomycin 1,000 MG in sodium chloride 0.9% 250 ML 250 MG IV (15:27)
[2024-04-11] MEDS: morphine 4 mg/mL SDV 1 mL 2 MG IVP (15:55)
--- NOTE | 2024-04-11 17:03 | PC.NURSE ---
MODERATE SEDATION VITALS - 127/73, HR-62 SPO2 - 90% ROOM AIR VERSED 2 MG GIVEN 1423 FENTANYL 25 MCG GIVEN 1424 1425 PROCEDURE BEGAN O2 PLACED ON PATIENT BY RT 5 L NC 1426 VERSED 1 MG GIVEN 1427 FENTANYL 25 MCG GIVEN 1427 VITALS (1431) - 132/85, HR-65, SPO2 98% 5 L NC FENTANYL 25MCG GIVEN 1431 PROCEDURE COMPLETE 1435 VITALS (1440) 150/79, HR-63, SPO2 98% 5L NC FENTANYL 25 MCG GIVEN 1443 VITALS (1451) 144/58, 60, 95% ROOM AIR VITALS (1457) 136/60, 64, 94% ROOM AIR VITALS (1505) 138/73, 53, 91% ROOM AIR VITALS (1515) 122/82, 65, 92% ROOM AIR
== END 2024-04-11 17:29 | disposition home or self-care (01) ==
PROVIDERS: Emergency Provider Family Medicine; PCP Nurse Practitioner Family
DX: S60.222A Contusion of left hand, initial encounter (principal)
CPT/HCPCS: 99152; 10140; 36415; 73130; 73201; 80053; 85025; 87040; 96365; 96366; 96375; 99285; J1200; J2250; J2270; J2919; J3010; J3370; J7050

== ENCOUNTER → 2024-04-12 10:14 | Outpatient (BNVA) | payer MEDICARE, MEDICAID, SELFPAY | PROVIDERS: PCP Nurse Practitioner Family; Visit Provider Thoracic Surgery (Cardiothoracic Vascular Surgery) | DX: I96 Gangrene, not elsewhere classified (principal); L02.512 Cutaneous abscess of left hand | CPT/HCPCS: 99211 ==

== ENCOUNTER → 2024-04-16 13:18 | Outpatient (BNVA) | payer MEDICARE, MEDICAID, SELFPAY | PROVIDERS: PCP Nurse Practitioner Family; Visit Provider Thoracic Surgery (Cardiothoracic Vascular Surgery) | DX: I96 Gangrene, not elsewhere classified (principal); L02.512 Cutaneous abscess of left hand | CPT/HCPCS: 97597 ==

== ENCOUNTER 2024-09-15 16:11 | Emergency (ER) | payer MEDICARE, MEDICAID, SELFPAY ==
[2024-09-15 16:17] VITALS: BP 134/79; PULSE 77; TEMP 36.7; O2SAT 86; BMI 24.7
--- NOTE | 2024-09-15 17:26 | CTR_ITS ---
PROCEDURE INFORMATION: Exam: CT Head Without Contrast Exam date and time: 09/15/2024 6:06 PM Age: 69 years old Clinical indication: Injury or trauma; Fall; Blunt trauma (contusions or hematomas); Patient fell hitting head against the corner of a lawn chair. Laceration to frontal. ; Additional info: Head injury fall TECHNIQUE: Imaging protocol: Computed tomography of the head without contrast. Radiation optimization: All CT scans at this facility use at least one of these dose optimization techniques: automated exposure control; mA and/or kV adjustment per patient size (includes targeted exams where dose is matched to clinical indication); or iterative reconstruction. COMPARISON: CT head wo con* [id number] 04/02/2024 2:35 PM RADIATION DOSE METRICS: Total DLP (mGy-cm): 1003.28 FINDINGS: Brain: No evidence of intra-axial or extra-axial hemorrhage. No mass effect or midline shift. Bowman-white differentiation is maintained. Basilar cisterns are patent. Cerebral ventricles: No hydrocephalus. Paranasal sinuses: The visualized paranasal sinuses are well aerated. Mastoid air cells: The visualized mastoids and middle ears are clear. Bones: Calvarium is intact. No evidence of acute fracture. Soft tissues: Forehead/nasal soft tissue contusion/laceration. CT/CT head wo con* [id number] IMPRESSION: 1. No acute intracranial abnormality.
--- NOTE | 2024-09-15 17:52 | PC.NURSE ---
9 SUTURES PLACED IN PT FOREHEAD LAC BY CEDRIC MCCLENDON.
[2024-09-15] MEDS: lidocaine-epi 1% 20 mL INJ INJECTION (17:54)
[2024-09-15 18:17] VITALS: PULSE 64; O2SAT 90
--- NOTE | 2024-09-15 18:33 | W.ED.HEATRA ---
HPI - Head Injury General: Chief complaint: Head Injury Stated complaint: fell and hit head Time Seen by Provider: 09/15/24 17:17 History of Present Illness: 69-year-old female comes in today with injury to the forehead. Patient has a U shaped laceration to the central forehead that is approximately 6 cm. Patient reports that she tripped when she was getting out of her lawn chair causing a fall forward and strike another along chair. Patient denies any loss of consciousness. Patient does have COPD which she takes routine medications. Related Data Home Medications ?Medication ?Instructions ?Recorded ?Confirmed famotidine 40 mg tablet 40 mg PO DAILY 08/20/19 04/11/24 cholecalciferol (vitamin D3) 125 125 unit PO DAILY 09/09/19 04/11/24 mcg (5,000 unit) tablet (Vitamin D3) fluticasone furoate 200 1 inh inhalation BID 05/16/22 04/11/24 mcg-vilanterol 25 mcg/dose inhalation powder (Breo Ellipta) citalopram 10 mg tablet 10 mg PO DAILY 04/11/24 04/11/24 hydroxyzine HCl 10 mg tablet 10 mg PO TID 04/11/24 04/11/24 Previous Rx's ?Medication ?Instructions ?Recorded hydrocodone 5 mg-acetaminophen 325 1 tab PO BID PRN pain 10 days #20 04/10/24 mg tablet tabs mupirocin 2 % topical ointment 1 applic topical DAILY #22 grams 04/11/24 Allergies Allergy/AdvReac Type Severity Reaction Status Date / Time bacitracin (From Neosporin Allergy ALGY-Hives Verified 09/15/24 16:28 ([id number])) buspirone Allergy ADR-Agitate Verified 09/15/24 16:28 d clarithromycin (From Biaxin) Allergy ALGY-Hives Verified 09/15/24 16:28 codeine Allergy ALGY-Hives Verified 09/15/24 16:28 iodine Allergy ALGY-Hives Verified 09/15/24 16:28 neomycin (From Neosporin Allergy ALGY-Hives Verified 09/15/24 16:28 ([id number])) Penicillins Allergy ALGY-Hives Verified 09/15/24 16:28 polymyxin B (From Neosporin Allergy ALGY-Hives Verified 09/15/24 16:28 ([id number])) Review of Systems General: Reports: 10 or more systems reviewed and unremarkable except in HPI and below PFSH ED PFSH: Medical History Tobacco abuse COPD (chronic obstructive pulmonary disease) Hypertension Surgical History History of appendectomy History of cataract surgery Family History Mother CAD (coronary artery disease) Social History Smoking and tobacco/nicotine status: current every day tobacco/nicotine user Alcohol intake: never Substance/Drug Use: never Physical Exam Const: COMMON NORMALS: patient oriented x3 HENMT: COMMON NORMALS: normocephalic and Normal external nose present HEAD & SCALP: normocephalic and laceration (6 cm U-shaped central forehead) NOSE: Normal external nose present MOUTH: Normal oral and palatal mucosa present Neck/C-Spine: COMMON NORMALS: full ROM Resp: COMMON NORMALS: normal respiratory effort Cardio: COMMON NORMALS: regular rate and regular rhythm RATE: regular rate RHYTHM: regular rhythm GI: COMMON NORMALS: non-tender Back/Pelvis: COMMON NORMALS: thoracic and lumbar spine normal to inspection Extremity: COMMON NORMALS: full ROM Neuro: COMMON NORMALS: patient oriented x3 Skin: COMMON NORMALS: turgor normal GENERAL SKIN EXAM: turgor normal TRAUMA: laceration (Forehead) flap Procedures Laceration Laceration 1: Site: face Size (cm): 6 Description: flap Depth: simple, single layer Local Anesthetic: lidocaine 1% Amount of anesthesia used (mL): 8 Pre-repair: wound explored and irrigated extensively Skin layer closed with: nylon Size (cm): 5-0 Number of sutures: 9 Technique: simple, interrupted Course Vital Signs: Vital signs: Vital Signs Temperature 98.0 F 09/15/24 16:17 Pulse Rate 78 09/15/24 18:53 Blood Pressure 122/71 09/15/24 18:53 Pulse Oximetry 85 L 09/15/24 18:53 Oxygen Delivery Me thod Room Air 09/15/24 16:17 MDM - Head Injury Medcial Decision Making 69-year-old female comes in today for injury to the forehead. Patient has a U-shaped laceration to her central forehead. No depression or skull fractures noted. Patient responds appropriate to questions. Patient appears nontoxic. Differential diagnosis includes not limited to intracranial bleeding, skull fracture, laceration. CT of the head showed no fracture. Wound was closed with sutures patient tolerated well. Patient left before results of CT was completed and signed AMA at that time. Lab Data Radiology Impressions Head CT 09/15/24 17:26 IMPRESSION: 1. No acute intracranial abnormality. XR interpretation done by ED provider, pending radiology final review Discharge Plan Discharge Patient Disposition: Left Against Medical Advice Clinical Impression: Head injury Qualifiers: Encounter type: initial encounter Qualified Code(s): S09.90XA - Unspecified injury of head, initial encounter Forehead laceration Qualifiers: Encounter type: initial encounter Qualified Code(s): S01.81XA - Laceration without foreign body of other part of head, initial encounter Condition: Stable Prescriptions: No Action hydrocodone-acetaminophen 5-325 mg tablet 1 tab PO BID PRN (Reason: pain) 10 Days Qty: 20 0RF famotidine 40 mg tablet 40 mg PO DAILY cholecalciferol (vitamin D3) [Vitamin D3] 125 mcg (5,000 unit) Tablet 125 unit PO DAILY fluticasone furoate-vilanterol [Breo Ellipta] 200-25 mcg/dose blister with device 1 inh INHALATION BID citalopram 10 mg tablet 10 mg PO DAILY hydroxyzine HCl 10 mg tablet 10 mg PO TID mupirocin 2 % ointment 1 applic topical DAILY Qty: 22 0RF Rx Instructions: Apply to dressing and then apply to the wound once daily Referrals: Nancy Lamb, STRAP CUTTING MACHINE OPERATOR [Primary Care Provider] - Print Language: Japanese Coding Level of Care Code ED Well Testing Operator for Silva Khan
[2024-09-15 18:53] VITALS: BP 122/71; PULSE 78; O2SAT 85
== END 2024-09-15 18:54 | disposition left against medical advice (07) ==
PROVIDERS: Emergency Provider Nurse Practitioner Family; PCP Nurse Practitioner Family
DX: S09.90XA Unspecified injury of head, initial encounter (principal); S01.81XA Laceration without foreign body of other part of head, initial encounter; J44.9 Chronic obstructive pulmonary disease, unspecified; I10 Essential (primary) hypertension; Z72.0 Tobacco use; W01.190A Fall on same level from slipping, tripping and stumbling with subsequent striking against furniture, initial encounter
CPT/HCPCS: 12014; 70450; 99284; J9999

== ENCOUNTER 2025-04-07 19:38 | Observation (INO) | payer MEDICARE, MEDICAID, SELFPAY ==
--- OUTSIDE RECORDS SUMMARY | 2025-04-07 19:43 | XMS_ITS | Clinical Summary ---
Author Organization [employer] Address [address] Schmidn: Epic Prelude ADT RAMIRO JON [address] Care Team Providers Care Factory Representative Name Role Phone Manolo Blevins DO Primary Care Provider [phone] Allergies Active Allergy Reactions Criticality Noted Date Comments Adhesive Tape-Silicones Rash Low 05/26/2022 Bacitracin Hives High 08/20/2019 Buspirone Nausea and Vomiting,Other (See Comments) Low 05/26/2022 Made her feels shakey Clarithromycin Hives High 05/26/2022 Codeine Headache Low 05/26/2022 Iodinated Contrast Media Nausea and Vomiting Low Iodine Hives High 08/20/2019 Neomycin Hives High 08/20/2019 Penicillins Anaphylaxis High 05/26/2022 Polymyxin B Hives High 08/20/2019 Roflumilast Dizziness Low 08/05/2022 Sick to stomach, can't sleep, shake, dizziness pt stated on generic Daliresp. Medications triamcinolone acetonide (KENALOG) 0.1 % OintmentIndica tions:Rash and nonspecific skin eruption Apply to affected area 2 times daily. For leg rash , non weeping. 80 Gram 2 09/10/19 23 Active potassium CHLORIDE (KAYCIEL) 20 mEq/15 mL solutionIndica tions:Hypokale inga Take 7.5 mL (10 mEq) by mouth daily. 225 mL 2 12/18/19 24 Active ibuprofen (MOTRIN) 800 mg tablet TAKE 1 TABLET BY MOUTH THREE TIMES DAILY WITH FOOD NEEDED FOR PAIN 100 Tablet 1 07/12/19 25 Active albuterol sulfate HFA 90 mcg/actuation aerosol inhalerIndicat ions:Chronic obstructive pulmonary disease, unspecified COPD type (CMS/HCC) 2 Puffs by See Admin Instructions route every 6 hours as needed for Shortness of Breath. 18 Gram 08/28/19 25 Active fluticasone-um eclidinium-esther anterol (TRELEGY ELLIPTA) 100-62.5-25 mcg Disk with DeviceIndicati ons:Chronic obstructive pulmonary disease, unspecified COPD type (CMS/HCC) Take 1 Puff by inhalation daily. 1 Each 11 08/28/19 25 Active hydrOXYzine HCL (ATARAX) 10 mg tabletIndicati ons:Panic attacks TAKE 1 TABLET BY MOUTH THREE TIMES DAILY NEEDED FOR ANXIETY OR PANIC ATTACK 90 Tablet 1 09/25/19 25 Active famotidine (PEPCID) 40 mg tabletIndicati ons:Gastroesop hageal reflux disease, unspecified whether esophagitis present Take 1 Tablet (40 mg) by mouth daily at bedtime. 90 Tablet 3 12/19/19 25 Active metoprolol succinate (Toprol XL) 25 mg Extended Release 24 hour tabletIndicati ons:Tremors of nervous system Take 1 Tablet (25 mg) by mouth daily. For tremors 90 Tablet 1 03/04/20 25 Active citalopram (CeleXA) 10 mg tabletIndicati ons:Panic attacks TAKE 1 TABLET BY MOUTH ONCE DAILY FOR DEPRESSION AND FOR ANXIETY 90 Tablet 1 03/04/20 25 Active benzonatate (TESSALON) 100 mg capsuleIndicat ions:Chronic obstructive pulmonary disease, unspecified COPD type (CMS/HCC) Take 1 Capsule (100 mg) by mouth 3 times daily as needed for Cough. 30 Capsule 03/04/20 25 Active albuterol (PROVENTIL,RADHIKA TOLIN) 2.5 mg /3 mL (0.083 %) Solution for NebulizationIn dications:Hl7 Interface Developer micheline obstructive pulmonary disease, unspecified COPD type (CMS/HCC) Take 3 mL (2.5 mg) by inhalation every 4 hours as needed for Shortness of Breath. 120 mL 5 03/14/20 25 Active predniSONE (DELTASONE) 10 mg tabletIndicati ons:Chronic obstructive pulmonary disease, unspecified COPD type (CMS/HCC) TAKE 3 TABLETS BY MOUTH ONCE DAILY FOR 3 DAYS AND 2 ONCE DAILY FOR 3 DAYS AND 1 ONCE DAILY FOR 3 DAYS 18 Tablet 03/04/20 25 025 albuterol (PROVENTIL,RADHIKA TOLIN) 2.5 mg /3 mL (0.083 %) Solution for NebulizationIn dications:Hl7 Interface Developer micheline obstructive pulmonary disease, unspecified COPD type (CMS/HCC) Take 3 mL (2.5 mg) by inhalation every 4 hours as needed for Shortness of Breath. 120 mL 5 03/04/20 25 025 Discontinued Active Problems Problem Noted Date Diagnosed Date Alcohol consumption heavy 08/27/2024 Mass of buttock 08/27/2024 Dislocation of left shoulder joint 12/15/2023 Tremors of nervous system 06/02/2023 Injury, thumb 06/02/2023 Peripheral edema 06/30/2022 Gastroesophageal reflux disease 06/30/2022 Cigarette dependence 05/26/2022 Panic attacks 05/26/2022 Chronic obstructive pulmonary disease 05/26/2022 Encounters Date Type Department Care Team Description 03/14/2025 Orders Only [address] [phone] Nancy Lamb FNP Chronic obstructive pulmonary disease, unspecified COPD type (CMS/HCC) 03/13/2025 Medication Prior Auth Encounter [facility] Prescription Management Dept [facility] [address] Valente Ventura, PHARMACIST 03/12/[address] [phone] Nancy Lamb FNP Albuterol 0.083% PA denial 03/05/[address] [phone] Nancy Lamb FNP 03/05/2025 Results Follow-Up [facility] [address] [phone] Nancy Lamb FNP CBC WITH DIFFERENTIAL, BASIC METABOLIC PANEL 03/04/2025 8:00 AM CDT Office Visit [address] [phone] Nancy Lamb FNP Encounter for subsequent annual wellness visit (AWV) in Medicare patient (Primary Dx); Chronic obstructive pulmonary disease, unspecified COPD type (CMS/HCC); Panic attacks; Tremors of nervous system; Hypokalemia 03/04/2025 External Device Data [facility] ABSTRACTION Provider, Abstract 01/24/[address] [facility] [address] [phone] Nancy Lamb FNP Chronic obstructive pulmonary disease, unspecified COPD type (CMS/HCC) 01/22/2025 External Device Data [facility] ABSTRACTION Provider, Abstract from Last 3 Months Immunizations Immunization Administration Dates Next Due (ADACEL/BOOSTRIX)(10 YR UP) TDAP VACCINE, 0.5ML, IM 08/02/2017 Influenza Seasonal Unspecified Formulation IM ,04/12/2020 Family History Medical History Relation Name Comments Cancer Brother Diabetes Brother Other Father ADHD Mother Heart Disease Mother Diabetes Sister Relation Name Status Comments Brother Father Mother Sister Social History Tobacco Use Types Packs/Day Years Used Date Smoking Tobacco: Every Day Cigarettes 1 110.8 Started: 1967 Passive Smoke Exposure: Current Smokeless Tobacco: Never Tobacco Cessation:Ready to Q uit: Not Asked; Counseling Given: Not Answered Alcohol Use Standard Drinks/Week Comments Yes 28 (1 standard drink = 0.6 oz pure alcohol) 4-5 mixed drinks with up to 3 shots of vodka each Financial Resource Strain Answer Date R ecorded How hard is it for you to pa y for the very basics like food, housing, medical care, and heating? Not very hard 09/09/2022 Food Insecurity Answer Date Recorded In the past 12 months, have you worried that your food would run out before you had money to buy more? Never true 09/09/2022 In the past 12 months, did y ou run out of food and didn't have money to buy more? Never true 09/09/2022 Transportation Needs Answer Date Record ed In the past 12 months, has l ack of transportation kept you from medical appointments or from getting medications? 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 Gender Identity Not on file Sexual Orientation Not on file Last Filed Vital Signs Vital Sign Reading Time Taken Comments Blood Pressure 128/62 03/04/2025 8:19 AM CDT Pulse 79 03/04/2025 8:19 AM CDT Temperature 36.9 C (98.5 F) 03/04/2025 8:19 AM CDT Respiratory Rate 14 03/04/2025 8:19 AM CDT Oxygen Saturation 88% 03/04/2025 8:4 7 AM CDT room air after sitting Inhaled Oxygen Concentration - - Weight 76.2 kg (168 lb) 03/04/2025 8:19 AM CDT Height 167.6 cm (5' 6 ) 03/04/2025 8:19 AM CDT Body Mass Index 27.12 03/04/2025 8:19 AM CDT Plan of Treatment Health Maintenance Due Date Last Done Comments FIT/ DNA Q 3 YEARS (AUTO ORDER) 1971 FIT/FOBT Q 1 YEAR (AUTO ORDER) 1971 FLEX SIG/CT COLONOGRAPHY Q 5 YEARS (AUTO ORDER) 1971 PNEUMOCOCCAL VACCINE 50+ YEA RS (1 of 2 - PCV) 1972 BREAST CANCER SCREENING 1993 COLORECTAL CANCER SCREENING (AUTO ORDER) 1998 COLORECTAL SCREENING 1998 Colorectal Cancer Screening (AUTO ORDER) 1998 Colorectal Cancer Screening 1998 FIT-DNA Q 3 years 1998 FIT/FOBT Q 1 year 1998 Flex Sig/CT Colonography Q 5 years 1998 Lung Cancer Screening 2003 RSV VACCINE (60+ or ) (1 - Risk 50-74 years 1-dose series) 2003 ZOSTER VACCINE (1 of 2) 2003 OSTEOPOROSIS SCREENING 2018 INFLUENZA VACCINE (#1) 2025 04/19/2022, 2019 Traditional Medicare (ACO) A nnual Wellness Visit 03/05/2026 03/04/2025, 12/15/2023, 09/09/2022 DTAP/TDAP/TD VACCINES (2 - T d or Tdap) 08/02/2027 08/02/2017 Procedures Procedure Name Priority Date/Time Associated Diagnosis Comments BASIC METABOLIC PANEL Routine 03/04/2025 9:04 AM CDT Hypokalemia CBC WITH DIFFERENTIAL Routine 03/04/2025 9:04 AM CDT Hypokalemia from Last 3 Months Results * (ABNORMAL) CBC WITH DIFFERENTIAL (03/04/2025 9:04 AM CDT) WBC 6.5 3.8 - 10.8 Thousand/u L [facility] RBC 3.95 3.80 - 5.10 Million/uL [facility] HEMOGLOBIN 14.0 11.7 - 15.5 g/dL [facility] HEMATOCRIT 43.2 35.0 - 45.0 % [facility] MCV 109.4(H) 80.0 - 100.0 fL [facility] MCH 35.4(H) 27.0 - 33.0 pg [facility] MCHC 32.4 32.0 - 36.0 g/dL [facility] Comment: For adults, a slight decrease in the calculated MCHC value (in the range of 30 to 32 g/dL) is most likely not clinically significant; however, it should be interpreted with caution in correlation with other red cell parameters and the patient's clinical condition. RDW 12.0 11.0 - 15.0 % [facility] PLATELETS 201 140 - 400 Thousand/u L [facility] MPV 9.2 7.5 - 12.5 fL [facility] NEUTROPHIL ABSOLUTE 3,965 1,500 - 7,800 cells/uL [facility] LYMPHOCYTE ABSOLUTE 1,853 850 - 3,900 cells/uL [facility] MONOCYTE ABSOLUTE 462 200 - 950 cells/uL [facility] EOSINOPHIL ABSOLUTE 163 15 - 500 cells/uL [facility] BASOPHILS ABSOLUTE 59 0 - 200 cells/uL [facility] NEUTROPHIL 61 % [facility] LYMPHOCYTES 28.5 % [facility] MONOCYTE 7.1 % [facility] EOSINOPHILS 2.5 % [facility] BASOPHILS 0.9 % [facility] Comment: Test Performed at: [facility] [place] [address] [place] [address] Elvira Wallace MD Blood 03/04/2025 9:04 AM CDT 03/05/2025 3:18 AM CDT Nancy GREEN HEMATOLOGY ORDERABLES Final R esult [facility] [phone] [facility] [address] [facility] [place] [address] * BASIC METABOLIC PANEL (03/04/2025 9:04 AM CDT) GLUCOSE 96 65 - 99 mg/dL [facility] Comment: Fasting reference interval BUN 8 7 - 25 mg/dL [facility] CREATININE 0.62 0.60 - 1.00 mg/dL [facility] GFR 95 > OR = 60 mL/min/1.7 3m2 [facility] BUN/CREAT RATIO SEE NOTE: 6 - 22 (calc) [facility] Comment: Not Reported: BUN and Creatinine are within reference range. SODIUM 144 135 - 146 mmol/L [facility] POTASSIUM 3.5 3.5 - 5.3 mmol/L [facility] CHLORIDE 100 98 - 110 mmol/L [facility] CO2 32 20 - 32 mmol/L [facility] CALCIUM 9.5 8.6 - 10.4 mg/dL [facility] Comment: Test Performed at: [facility] [address] [facility] [place] [address] Elvira Wallace MD Blood 03/04/2025 9:04 AM CDT 03/05/2025 3:18 AM CDT Nancy GREEN CHEMISTRY ORDERABLES Final Re sult [facility] [phone] [facility] [place] [address] [address] [phone] from Last 3 Months Insurance MEDICAID [place] MEDICARE PART A AND B Care Teams Factory Representative Relationship Specialty Start Date End Date Manolo Blevins DO [address] [place] [phone] PCP - General Family Practice 02/08/24
[2025-04-07 19:59] VITALS: BP 151/70; PULSE 84; RESP 24; TEMP 36.9; O2SAT 84; BMI 25.0
--- NOTE | 2025-04-07 20:12 | ECG_ITS ---
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 Measurements Intervals [place] Rate: 81 P: 79 VA: 184 QRS: 44 QRSD: 79 T: -16 QT: 398 QTc: 464 Interpretive Statements SINUS RHYTHM WITH OCCASIONAL VENTRICULAR PREMATURE COMPLEXES ST DEVIATION AND MODERATE T-WAVE ABNORMALITY, CONSIDER ANTERIOR ISCHEMIA [-0.1+ mV T-WAVE IN V3/V4] Compared to ECG 05/17/2022 09:44:07 Ventricular premature complex(es) now present T-wave abnormality now present Possible ischemia now present Sinus tachycardia no longer present Electronically Signed On 04-08-2025 19:16:49 CDT by Joyce Mckenzie M.D. [email or web address]
[2025-04-07 20:45] VITALS: BP 149/72; PULSE 82; RESP 14; O2SAT 92
--- NOTE | 2025-04-07 20:54 | ECG_ITS ---
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 Measurements Intervals [place] Rate: 97 P: 69 AK: 195 QRS: 48 QRSD: 89 T: -26 QT: 366 QTc: 466 Interpretive Statements SINUS RHYTHM WITH FREQUENT SUPRAVENTRICULAR PREMATURE COMPLEXES MODERATE T-WAVE ABNORMALITY, CONSIDER ANTERIOR ISCHEMIA [-0.1+ mV T-WAVE IN V3/V4] MODERATE T-WAVE ABNORMALITY, CONSIDER INFERIOR ISCHEMIA [-0.1+ mV T-WAVE IN II/aVF] Compared to ECG 04/07/2025 20:12:43 Ventricular premature complex(es) no longer present T-wave abnormality still present Possible ischemia still present Electronically Signed On 04-08-2025 15:41:05 CDT by Joyce Mckenzie M.D. [id number]
--- NOTE | 2025-04-07 20:56 | ECG_ITS ---
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 Measurements Intervals [place] Rate: 97 P: 69 MS: 195 QRS: 48 QRSD: 89 T: -26 QT: 366 QTc: 466 Interpretive Statements SINUS RHYTHM WITH FREQUENT SUPRAVENTRICULAR PREMATURE COMPLEXES MODERATE T-WAVE ABNORMALITY, CONSIDER ANTERIOR ISCHEMIA [-0.1+ mV T-WAVE IN V3/V4] MODERATE T-WAVE ABNORMALITY, CONSIDER INFERIOR ISCHEMIA [-0.1+ mV T-WAVE IN II/aVF] Compared to ECG 04/07/2025 20:12:43 Ventricular premature complex(es) no longer present T-wave abnormality still present Possible ischemia still present Electronically Signed On 04-08-2025 19:15:18 CDT by Joyce Mckenzie M.D. [id number]
--- NOTE | 2025-04-07 20:59 | XRR_ITS ---
PROCEDURE INFORMATION: Exam: XR Chest Exam date and time: 04/07/2025 9:13 PM Age: 69 years old Clinical indication: Shortness of breath TECHNIQUE: Imaging protocol: Radiologic exam of the chest. Views: 1 view. COMPARISON: CR XR chest 1V portable [id number] 05/16/2022 10:37 AM FINDINGS: Lungs: A few scattered nonspecific although chronic appearing pulmonary strands. Probable hyperinflation and emphysema. No definite acute infiltrate or effusion. Pleural spaces: Unremarkable. No pleural effusion. No pneumothorax. Heart/Mediastinum: Unremarkable. No cardiomegaly. Vasculature: Aortic atherosclerosis. Bones/joints: Unremarkable. XR/XR chest 1V portable [id number] IMPRESSION: No definite acute infiltrate or effusion.
[2025-04-07 21:18] VITALS: BP 126/58; PULSE 88; RESP 14; O2SAT 91
[2025-04-07 21:27] LABS: Hematocrit 46.6 % (36-47); Hemoglobin 15.10 g/dL (11.27-16.99); Mean Corpuscular HGB Conc 32.4 g/dL (30-55); Mean Corpuscular Hemoglobin 32.8 pg (27-33); Mean Corpuscular Volume 101.3 fl (85-98); Nucleated Red Blood Cells % 0 %; Platelet Count 188 10^3/cmm (157-399); Red Blood Count 4.60 10^6/uL (3.85-5.65); White Blood Count 6.86 10^3/uL (3.29-11.43)
--- NOTE | 2025-04-07 21:30 | USR_ITS ---
PROCEDURE INFORMATION: Exam: US Duplex Right Lower Extremity Veins, Limited Exam date and time: 04/07/2025 9:52 PM Age: 69 years old Clinical indication: Edema, localized; Lower extremity, bilateral; 3+ pitting edema to bilateral lower extremities. ; Additional info: Rle swelling, dyspnea TECHNIQUE: Imaging protocol: Real-time duplex ultrasound of the right extremity with 2-D elias scale, color Doppler flow and spectral waveform analysis including responses to compression and other maneuvers (when performed) with image documentation. Limited exam was focused on the right lower extremity veins. COMPARISON: No relevant prior studies available. FINDINGS: Right deep veins: Unremarkable. The common femoral, femoral, proximal profunda femoral and popliteal veins are patent without thrombus. Normal Doppler waveforms. Normal compressibility and/or augmentation response. Superficial veins: Greater saphenous vein at the saphenofemoral junction is patent without thrombus. Soft tissues: Unremarkable. US/[place] [id number] IMPRESSION: No evidence of deep vein thrombosis.
--- NOTE | 2025-04-07 21:31 | ED_ITS ---
HPI - General Adult 2 General: Chief complaint: Shortness of Breath/Dyspnea Stated complaint: SOB, Fall Time Seen by Provider: 04/07/25 20:58 History of Present Illness: 69yo F w/pmhx of COPD, smoking history w /cc of increased exertional dyspnea for the past several days. She is on home O2. Patient states that she has had a cough though this is not significantly changed from her baseline. Patient denies hemoptysis. However, she has new right lower extremity swelling in comparison to the left that has developed in the past couple of days. Patient denies chest pain or chest pain with deep respirations. No abdominal pain, nausea or vomiting. She denies diarrhea, dysuria, blood in stool or urine. Of note, patient has fallen frequently in the past several days. She fell in the parking lot prior to coming into the emergency department. Patient did not hit her head and denies new neck or back pain. However, patient does have right hip pain. She denies pain in her knees or ankles. She states that she has fallen at least 3 times recently. Of note, patient has an allergy to IV contrast. Patient is not anticoagulated. Related Data Home Medications ?Medication ?Instructions ?Recorded ?Confirmed famotidine 40 mg tablet 40 mg PO DAILY 08/20/1903/20 cholecalciferol (vitamin D3) 125 125 unit PO DAILY 04/11/24 mcg (5,000 unit) tablet (Vitamin D3) fluticasone furoate 200 1 inh inhalation BID 2 04/11/24 mcg-vilanterol 25 mcg/dose inhalation powder (Breo Ellipta) citalopram 10 mg tablet 10 mg PO DAILY 04/11/2403/20 hydroxyzine HCl 10 mg tablet 10 mg PO TID 04/11/24 Previous Rx's ?Medication ?Instructions ?Recorded hydrocodone 5 mg-acetaminophen 325 1 tab PO BID PRN pa in 10 days #20 04/10/24 mg tablet tabs mupirocin 2 % topical ointment 1 applic topical DAILY #22 grams 04/11/24 Allergies Allergy/AdvReac Type Severity Reaction Status Date / Time bacitracin (From Neosporin Allergy ALGY-Hives Verified 09/15/24 16:28 ([id number])) buspirone Allergy ADR-Agitate Verified 09/15/24 16:28 d clarithromycin (From Biaxin) Allergy ALGY-Hives Verified 09/15/24 16:28 codeine Allergy ALGY-Hives Verified 09/15/24 16:28 iodine Allergy ALGY-Hives Verified 09/15/24 16:28 neomycin (From Neosporin Allergy ALGY-Hives Verified 09/15/24 16:28 ([id number])) Penicillins Allergy ALGY-Hives Verified 09/15/24 16:28 polymyxin B (From Neosporin Allergy ALGY-Hives Verified 09/15/24 16:28 ([id number])) PFSH ED 2 PFSH: Medical History (Updated 04/08/25 @ 02:14 by Angel Gu MD) History of appendicitis Tobacco abuse COPD (chronic obstructive pulmonary disease) Hypertension Surgical History (Updated 04/08/25 @ 02:14 by Angel uG MD) History of hysterectomy History of appendectomy History of cataract surgery Family History Mother CAD (coronary artery disease) Social History Smoking and tobacco/nicotine status: current every day tobacco/nicotine user Alcohol intake: never Substance/Drug Use: never Physical Exam 2 Narrative: EXAM NARRATIVE: Vitals were reviewed. Patient is alert, oriented. PERRL, EOMI. No facial asymmetry. Speech is clear. Patient does not have pain with palpation of C, T or L-spine. Patient does not have significant wheezing or rhonchi on lung exam. Patient is not tachycardic and is only mildly hypertensive. Abdomen is soft, nondistended nontender. Patient does not have significant CVA tenderness with percussion of the flanks. She does not have pain with flexion and external rotation of either hip, pain with flexion of the knee or palpation of the ankle. She has +2 DP and PT pulses bilaterally. Patient has asymmetric right lower extremity swelling. Course 2 Vital Signs: Vital signs: Vital Signs Temperature 98.5 F 04/08/25 04:00 Pulse Rate 71 04/08/25 04:00 Respiratory Rate 17 04/08/25 04:00 Blood Pressure 157/85 04/08/25 04:00 Pulse Oximetry 94 04/08/25 04:00 Oxygen Delivery Me thod Nasal Cannula 04/08/25 04:00 Oxygen Flow Rate 4 04/08/25 04:00 [facility] - General Adult Medical Decision Making 69-year-old female presents with a chief complaint of increased shortness of breath with exertion, several falls and new right lower extremity swelling. She has been afebrile and denies malaise and chills. Differential diagnosis includes, is limited to, COPD exacerbation, pneumonia, bronchitis, pleural effusion, ACS, decompensated CHF, DVT/PE, fracture, dislocation, contusion. On exam, patient is doing well on supplemental oxygen via nasal cannula. She does not have significant rhonchi or wheezing. Patient was evaluated with CBC, BMP, troponin, BNP, D-dimer, procalcitonin, UA, EKG and US venous duplex. She has been afebrile, has a normal white blood cell count, normal procalcitonin and thus I feel that cause of her exertional dyspnea is likely not infectious. Patient has a normal baseline troponin with a negative delta. However, her D- dimer is elevated. Venous ultrasound is negative for right lower extremity DVT however concern remains that patient may have a PE especially as I do not have a clear explanation or alternative pathology. Additionally, patient could benefit from OT PT eval due to recent and multiple falls. XR R hip negative for acute fx. Patient was admitted for further evaluation w/V/Q scan vs pretreatment and CT PE imaging, PT/OT consult. She would also benefit from cardiac echo given elevated BNP. She was admitted for observation. Lab Data 04/07/25 20:17 04/07/25 20:17 Radiology Impressions Chest X-Ray 04/07/25 20:59 IMPRESSION: No definite acute infiltrate or effusion. Venous Duplex 04/07/25 21:30 IMPRESSION: No evidence of deep vein thrombosis. Hip/Pelvis X-Ray 04/08/25 00:38 IMPRESSION: No definite acute fracture, subluxation, dislocation. Mild degenerative changes of right hip. Laboratory Results WBC 6.86 10^3/uL (3.29-11.43) 04/07/25 20:17 RBC 4.60 10^6/uL (3.85-5.65) 04/07/25 20:17 Hgb 15.10 g/dL (11.27-16.99) 04/07/25 20:17 Hct 46.6 % (36-47) 04/07/25 20:17 MCV 101.3 fl (85-98) H 04/07/25 20:17 MCH 32.8 pg (27-33) 04/07/25 20: MCHC 32.4 g/dL (30-55) 04/07/25 20:17 RDW 13.0 % (12.1-15.1) 04/07/25 20:17 Plt Count 188 10^3/cmm (157-399) 04/07/25 20:17 MPV 9.2 fL (7.4-10.4) 04/07/25 20:17 Neut % (Auto) 72.0 % 04/07/25 20:17 Lymph % (Auto) 17.8 % 04/07/25 20:17 Sunflower % (Auto) 7.7 % 04/07/25 20:17 Eos % (Auto) 1.5 % 04/07/25 20:17 Baso % (Auto) 0.7 % 04/07/25 20:17 Neut # (Auto) 4.94 10^3/uL (1.8-7.7) 04/07/25 20:17 Lymph # (Auto) 1.2 10^3/uL (0.8-4.8) 04/07/25 20:17 Sunflower # (Auto) 0.5 10^3/uL (0.2-0.9) 04/07/25 20:17 Eos # (Auto) 0.1 10^3/uL (0.0-0.8) 04/07/25 20:17 Baso # (Auto) 0.1 10^3/uL (0.0-0.1) 04/07/25 20: Nucleated RBC % (auto) 0 % 04/07/25 20: Nucleated RBCs # 0.0 /100WBC 04/07/25 20:17 D-Dimer 1.02 ug/mLFEU (0-0.59) H 04/07/25 21:07 Sodium 143 mmol/L (136-145) 04/07/25 20:17 Potassium 3.4 mmol/L (3.5-5.1) L 04/07/25 20:17 Chloride 101 mmol/L (98-107) 04/07/25 20:17 Carbon Dioxide 30 mmol/L (22-29) H 04/07/25 20:17 Anion Gap 15.4 (5-19) 04/07/25 20:17 BUN 5 mg/dL (8-23) L 04/07/25 20:17 Creatinine 0.6 mg/dL (0.5-0.9) 04/07/25 20:17 GFR Calculation Not Reportable 04/07/25 20:17 Glucose 110 mg/dL (65-115) 04/07/25 20:17 Calculated Osmolality 294 mOsm/kg (285-295) 04/07/25 20:17 Calcium 9.2 mg/dL (8.5-10.5) 04/07/25 20:17 Total Bilirubin 0.8 mg/dL (0.15-1.2) 04/07/25 20:17 AST 18 U/L (0-32) 04/07/25 20:17 ALT 8 U/L (0-33) 04/07/25 20:17 Alkaline Phosphatase 87 U/L (35-105) 04/07/25 20:17 Troponin T Baseline 13 ng/L (0-10) H 04/07/25 20:17 Troponin T 120 Minute 12.17 ng/L (0-10) H 04/07/25 22:17 Delta Troponin T -0.83 ABS# (0-10) L 04/07/25 22:17 NT-Pro-B Natriuret Pep 1031 pg/mL (0-125) H 04/07/25 20:17 Total Protein 6.3 g/dL (6.6-8.7) L 04/07/25 20:17 Albumin 4.1 g/dL (3.5-5.2) 04/07/25 20:17 Globulin 2.2 g/dL (1.3-4.6) 04/07/25 20:17 Procalcitonin 0.02 ng/mL (0-0.5) 04/07/25 20:17 Influenza A (PCR) Negative (Negative) 04/07/25:22 Influenza Type B (PCR) Negative (Negative) 10/20/25 22:22 RSV (PCR) Negative (Negative) 04/07/25 22:22 SARS-CoV-2 (PCR) Negative (Negative) 04/07/25 22:22 All radiology interpretation(s) finalized by discharge EKG Data EKG 1: Interpretation: Sinus rhythm with a heart rate of 81, normal axis, normal intervals, no STEMI. Computer generated interpretation: Chest X-Ray 04/07/25 20:59 IMPRESSION: No definite acute infiltrate or effusion. Venous Duplex 04/07/25 21:30 IMPRESSION: No evidence of deep vein thrombosis. Hip/Pelvis X-Ray 04/08/25 00:38 IMPRESSION: No definite acute fracture, subluxation, dislocation. Mild degenerative changes of right hip. EKG 2: Interpretation: Sinus rhythm with sinus arrhythmia, heart rate of 97, normal axis, normal intervals, no evidence of ST segment elevation. Computer generated interpretation: Chest X-Ray 04/07/25 20:59 IMPRESSION: No definite acute infiltrate or effusion. Venous Duplex 04/07/25 21:30 IMPRESSION: No evidence of deep vein thrombosis. Hip/Pelvis X-Ray 04/08/25 00:38 IMPRESSION: No definite acute fracture, subluxation, dislocation. Mild degenerative changes of right hip. Discharge Plan Discharge Patient Disposition: Admitted As Inpatient Admit Provider: Angel Gu Clinical Impression: D-dimer, elevated, Elevated brain natriuretic peptide (BNP) level, Multiple falls Dyspnea Qualifiers: Dyspnea type: dyspnea on exertion Qualified Code(s): R06.09 - Other forms of dyspnea Condition: Stable Coding Level of Care Code ED Sleeve Setter Lockstitch for Silva Khan
[2025-04-07 21:46] LABS: Troponin(5th) Baseline 13 ng/L (0-10)
[2025-04-07 22:00] VITALS: BP 131/61; PULSE 89; RESP 16; O2SAT 92
[2025-04-07 22:00] LABS: NT Pro B Type Natriuretic Pept 1031 pg/mL (0-125); Procalcitonin 0.02 ng/mL (0-0.5)
[2025-04-07 22:10] LABS: Alanine Aminotransferase 8 U/L (0-33); Albumin Level 4.1 g/dL (3.5-5.2); Alkaline Phosphatase 87 U/L (35-105); Anion Gap 15.4 (5-19); Aspartate Amino Transferase 18 U/L (0-32); Blood Urea Nitrogen 5 mg/dL (8-23); Calcium 9.2 mg/dL (8.5-10.5); Carbon Dioxide 30 mmol/L (22-29); Chloride 101 mmol/L (98-107); Creatinine Clr Calc Pharmacy 67.1929; Globulin 2.2 g/dL (1.3-4.6); Glucose 110 mg/dL (65-115); Osmolality Calculated 294 mOsm/kg (285-295); Potassium 3.4 mmol/L (3.5-5.1); Sodium 143 mmol/L (136-145); Total Protein 6.3 g/dL (6.6-8.7)
[2025-04-07 23:01] VITALS: PULSE 75; RESP 16; O2SAT 95
[2025-04-07 23:02] LABS: Respiratory Syncytial Virus Ce NEGATIVE (Negative); SARS-CoV-2 PCR NEGATIVE (Negative)
[2025-04-08] VITALS (15 sets, daily range): BP systolic 125–158; BP diastolic 69–85; PULSE 68–92; RESP 16–18; TEMP 36.6–37.1; O2SAT 90–96
[2025-04-08 00:08] LABS: Troponin 5 2HR 12.17 ng/L (0-10)
[2025-04-08 00:10] LABS: Troponin 5 2HR Delta -0.83 ABS# (0-10)
--- NOTE | 2025-04-08 00:38 | XRR_ITS ---
PROCEDURE INFORMATION: Exam: XR Right Hip Exam date and time: 04/08/2025 12:49 AM Age: 69 years old Clinical indication: Injury or trauma; Fall; Blunt trauma (contusions or hematomas); Right; Hip; Additional info: Fall/pain TECHNIQUE: Imaging protocol: Radiologic exam of the right hip. Views: 1 view hip with pelvis when performed. COMPARISON: No relevant prior studies available. FINDINGS: Bones/joints: Mild degenerative changes of right hip. Soft tissues: Unremarkable. XR/XR hip RT 2-3V wo/w pel* [id number] IMPRESSION: No definite acute fracture, subluxation, dislocation. Mild degenerative changes of right hip.
--- NOTE | 2025-04-08 01:50 | PM.HP ---
Providers/Chief Complaint Admitting Physician: Angel Gu Primary Care Provider: NORMA Frankel Chief Complaint: SOB, Fall History of Present Illness Eleni Hanson is a 69 year old woman with a history of chronic obstructive pulmonary disease (COPD), hypertension, and ongoing tobacco use, recently started on home oxygen. Presents with several days of shortness of breath, cough, and lower extremity swelling. Reports orthopnea. Denies chest pain or pressure. Denies fever, nausea, vomiting, or diarrhea. In the emergency department (ED), required 1.5 L/min supplemental oxygen to maintain oxygen saturation at 93%. ED vitals: blood pressure 143/69 mmHg, pulse 72 bpm, respiratory rate 18/min, temperature 98.5?F, oxygen saturation 93% on 1.5 L/min oxygen. ED labs/imaging: complete blood count (CBC) unremarkable; D-dimer elevated at 1.02; comprehensive metabolic panel notable for sodium 143, potassium 3.4, chloride 101, bicarbonate 30, anion gap 15.4, blood urea nitrogen (BUN) 15, creatinine 0.6, glucose 110, calcium 9.2; aspartate aminotransferase (AST), alanine aminotransferase (ALT), total bilirubin, and alkaline phosphatase normal; N-terminal pro?B-type natriuretic peptide (NT-proBNP) 1031; total protein 6.3, albumin 4.1, globulin normal; procalcitonin 0.02; influenza, COVID-19, and respiratory syncytial virus (RSV) nasal swabs negative. Chest X-ray without definitive infiltrate or effusion. Lower extremity venous duplex ultrasound negative for deep vein thrombosis (DVT). Hip and pelvis X-ray without definitive fracture, subluxation, or dislocation; mild degenerative changes in the right hip. Reports three recent falls. Historical note: iodine allergy precluded computed tomography (CT) angiogram in ED; plan discussed for ventilation-perfusion (V/Q) scan to evaluate for pulmonary embolism (PE). Code status discussion held; patient agrees to full resuscitation (not [id number]) at this time and may revisit after discussing with . Review of Systems Const: Denies: fever(s), chills, body aches or malaise ENMT: Denies: throat pain Card: Reports: edema, dyspnea on exertion and orthopnea; Denies: chest pain or pre-syncope Resp: Reports: dyspnea and productive cough; Denies: change in phlegm color or hemoptysis GI: Denies: abdominal pain, nausea, vomiting, diarrhea, constipation, hematochezia or melena : Denies: flank pain, urinary frequency or hematuria Musc: Denies: back pain, joint swelling or joint redness Skin/Breast: Denies: rash or new lesions Neuro: Denies: headache(s) or confusion Medications/Allergies Home Medications ?Medication ?Instructions ?Recorded ?Confirmed ?Last Taken ?Type famotidine 40 mg tablet 40 mg PO DAILY 08/20/19 04/11/24 04/10/24 History cholecalciferol (vitamin D3) 125 125 unit PO DAILY 09/09/19 04/11/24 04/10/24 History mcg (5,000 unit) tablet (Vitamin D3) fluticasone furoate 200 1 inh inhalation BID 05/16/22 04/11/24 04/10/24 History mcg-vilanterol 25 mcg/dose inhalation powder (Breo Ellipta) hydrocodone 5 mg-acetaminophen 325 1 tab PO BID PRN pain 10 days #20 04/10/24 04/11/24 04/11/24 Rx mg tablet tabs citalopram 10 mg tablet 10 mg PO DAILY 04/11/24 04/11/24 04/10/24 History hydroxyzine HCl 10 mg tablet 10 mg PO TID 04/11/24 04/11/24 04/10/24 History mupirocin 2 % topical ointment 1 applic topical DAILY #22 grams 04/11/24 Unknown Rx Allergies Allergy/AdvReac Type Severity Reaction Status Date / Time bacitracin (From Neosporin Allergy ALGY-Hives Verified 09/15/24 16:28 ([id number])) buspirone Allergy ADR-Agitate Verified 09/15/24 16:28 d clarithromycin (From Biaxin) Allergy ALGY-Hives Verified 09/15/24 16:28 codeine Allergy ALGY-Hives Verified 09/15/24 16:28 iodine Allergy ALGY-Hives Verified 09/15/24 16:28 neomycin (From Neosporin Allergy ALGY-Hives Verified 09/15/24 16:28 ([id number])) Penicillins Allergy ALGY-Hives Verified 09/15/24 16:28 polymyxin B (From Neosporin Allergy ALGY-Hives Verified 09/15/24 16:28 ([id number])) PFSH Acute PFSH: Medical History Tobacco abuse COPD (chronic obstructive pulmonary disease) Hypertension Surgical History History of appendectomy History of cataract surgery Family History Mother CAD (coronary artery disease) Social History Smoking and tobacco/nicotine status: current every day tobacco/nicotine user Alcohol intake: never Substance/Drug Use: never Vitals/I&O/Wt Last Vital Signs Temp 98.5 F 04/07/25 19:59 Pulse 72 04/08/25 00:47 Resp 18 04/08/25 00:47 BP 143/69 04/08/25 00:47 Pulse Ox 93 04/08/25 00:47 O2 Del Method Nasal Cannula 04/08/25 00:47 O2 Flow Rate 1.5 04/08/25 00:47 Weight last 48 hrs Weight 72.575 kg Physical Exam Const: COMMON NORMALS: patient oriented x3 and alert GENERAL APPEARANCE: cooperative ORIENTATION/CONSCIOUSNESS: Yes awake HENMT: COMMON NORMALS: oropharynx normal Neck/C-Spine: COMMON NORMALS: no JVD Resp: COMMON NORMALS: normal respiratory effort AUSCULTATION: crackles Laterality: bilateral (Bases) Cardio: COMMON NORMALS: no JVD, regular rhythm, S1 normal heart sound present, S2 normal heart sound present and No murmurs present (Cardio) RHYTHM: regular rhythm HEART SOUNDS: S1 normal heart sound present and S2 normal heart sound present GI: COMMON NORMALS: Normal to inspection, nondistended, normoactive bowel sounds present, Soft to palpation and non-tender PALPATION: Yes Soft to palpation Extremity: COMMON NORMALS: no joint enlargement and no pedal edema Neuro: COMMON NORMALS: patient oriented x3 and moves all extremities SENSORIUM/ORIENTATION: Yes alert Skin: COMMON NORMALS: no rashes or lesions noted GENERAL SKIN EXAM: no rashes or lesions noted Data 04/07/25 20:17 04/07/25 20:17 A&P Assessment and plan 1. Acute dyspnea: Multifactorial symptoms with cough and hypoxemia; objective testing and treatments initiated as documented. Reviewed vitals, CBC, D-dimer, CMP, troponin, NT proBNP, procalcitonin, influenza, RSV, COVID swab, chest x-ray, lower extremity venous duplex, ED provider note, discussed with ED provider. - Obtain ventilation-perfusion (V/Q) scan to assess for possible pulmonary embolism (PE) because CT angiogram not performed due to iodine allergy. - VTE prophylaxis for now. Possible CHF as below. COPD exacerbation as below. 2. CHF (congestive heart failure): Possible acute congestive heart failure (CHF), type unspecified : Concern raised due to edema and orthopnea; NT-proBNP elevated; assessing cardiac function. - Obtain transthoracic echocardiogram (TTE) to assess cardiac function. - Administer diuretic dose and reassess volume status. Monitor intake and output. Finn catheter. Reassess renal function, electrolytes with risk of deficiency with IV diuresis. Risk of MARY ANNE. Lower extremity edema : Edema noted; concern for volume overload. Reviewed venous duplex, negative for DVT. - Give a dose of diuretic. - Reassess volume status. - Monitor intake and output. - Reassess renal function, chemistry, and electrolytes (risk of electrolyte dysfunction and acute kidney injury with IV diuresis). 3. COPD (chronic obstructive pulmonary disease): COPD exacerbation (moderate) : Cough with productive sputum; treating as moderate COPD exacerbation. - Treat with DuoNebs (ipratropium-albuterol nebulizations). - Give intravenous corticosteroid (Solu-Medrol). - Monitor for risks of hyperglycemia, hypertension, gastritis, and encephalopathy. - Will not give antibiotic at the current time. 4. Smoking addiction: Active smoker; cessation addressed. - Start nicotine patch and provide lozenges. - Advise smoking cessation and continue to encourage. 5. Multiple falls: Three recent falls; imaging without acute fracture; right hip with mild degenerative changes. Treat above conditions. PT assessment. Plan: HTN: Monitor blood pressures. Requesting to confirm home medications. CODE STATUS: She would like to further discuss with her , full code for now. PDMP PDMP Reviewed: Not Reviewed Attestations Medical Necessity Statement*: Place in observation for additional assessment and management of acute dyspnea, productive cough, with possible acute CHF, COPD with exacerbation, multiple falls. and High MDM includes amount and/or complexity of data reviewed/ordered [ previous or external records, resulted lab(s)/test(s), ordered lab(s)/test(s) and other healthcare professional discussion] and described risk of complication, morbidity or mortality of management as documented Diagnoses Acute dyspnea R06.00 CHF (congestive heart failure) I50.9 COPD (chronic obstructive pulmonary disease) J44.9 Smoking addiction F17.200 Multiple falls R29.6
--- NOTE | 2025-04-08 02:05 | USCV_ITS ---
Eleni Hanson Age: 69 Gender: F : 1955 Exam Date: 04/08/2025 03:41 Ordering Phys: Angel Gu MD Technologist: SHANE [place] [facility] [place]: chf, hx COPD, HTN, smoker, O2-dependent 2L BP: 158 / 78 HR: 74 Rhythm: Sinus Technical Quality: Adequate MEASUREMENTS (Male / Female) Normal Values 2D ECHO LV Diastolic Diameter PLAX 4.8 cm 4.2 - 5.9 / 3.9 - 5.3 cm IVS Diastolic Thickness 1.4 cm 0.6 - 1.0 / 0.6 - 0.9 cm IVS Systolic Thickness 1.9 cm LVPW Diastolic Thickness 1.5 cm 0.6 - 1.0 / 0.6 - 0.9 cm LVPW Systolic Thickness 1.5 cm LVOT Diameter 2.3 cm LV Ejection Fraction 2D Teich 63.4 % LV Ejection Fraction MOD 4C 61.4 % LV Ejection Fraction MOD 2C 62.7 % LV Ejection Fraction 2C AL 62.1 % LA Diameter 4.0 cm Aorta at Sinotubular Diameter 3.3 cm IVC Diameter 2.2 cm M-MODE LA Ao Ratio MM 1.2 AV Cusp Separation MM 1.8 cm DOPPLER AV Peak Velocity 158.0 cm/s LVOT Peak Velocity 104.0 cm/s AV Area Cont Eq vti 2.5 cm squared AV Area Cont Eq pk 2.7 cm squared MV Peak Velocity 105.0 cm/s MV Area PHT 5.1 cm squared Mitral E to A Ratio 0.9 TR Peak Velocity 286.0 cm/s TR Peak Gradient 32.7 mmHg TV Peak E Velocity 40.0 cm/s PV Peak Velocity 98.0 cm/s FINDINGS Left Ventricle Normal left ventricular size and systolic function, EF 62%. Mild left ventricular hypertrophy. No regional wall motion abnormalities. Grade I/IV diastolic dysfunction (abnormal relaxation filling pattern), normal to mildly elevated filling pressures. Right Ventricle Normal right ventricular size and systolic function. Right Atrium Normal right atrial size. Left Atrium Normal left atrial size. IA Septum Normal appearance of the interatrial septum. Mitral Valve No gross abnormalities noted Aortic Valve No gross abnormalities noted Tricuspid Valve No gross abnormalities noted Pulmonic Valve No gross abnormalities noted Pericardium No pericardial effusion. Aorta Normal aortic annulus size. IVC Normal inferior vena cava. CONCLUSIONS Normal LV size ejection fraction of 62%. Features of grade 1 LV diastolic dysfunction Normal right ventricular size and systolic function. No significant valvular abnormalities. There is no pericardial effusion. There are no intracardiac masses. No similar previous studies are available for comparison Dr Joyce Mckenzie MD FAC (Electronically Signed) Final Date: 08 April 2025 13:41 S
--- NOTE | 2025-04-08 02:17 | NM_ITS ---
WS: [id number] NUCLEAR MEDICINE LUNG VENTILATION AND PERFUSION CLINICAL INFORMATION: Assess for PE TECHNIQUE: Ventilation/perfusion lung scan with 33.8 mCi technetium 99m DTPA and 5.3 Tc 99m MAA. COMPARISON: 04/07/2025 FINDINGS: Hyperinflation on the radiograph with advanced chronic emphysematous changes. Cardiomegaly. Diffuse patchy heterogeneous perfusion. Marked patchy radiotracer uptake in the ventilatory images due to COPD. 1 or 2 large matched defects in the lower lobes likely due to emphysematous change and bulla formation. Numerous tiny matched ventilation/perfusion defects throughout both lungs likely due to advanced COPD. No large mismatched defects to indicate pulmonary embolus. NM/NM pul vent and perfus* [id number] IMPRESSION: 1. Low probability for pulmonary embolus.
[2025-04-08] MEDS: methylPREDNISolone sod succ 40 mg/mL INJ 30 MG IVP ×4 (02:45→21:00)
[2025-04-08] MEDS: FUROsemide 10 mg/mL SDV 2mL 20 MG IVP ×2 (02:46→14:07)
--- NOTE | 2025-04-08 15:54 | PM.PN ---
Subjective Subjective: 69-year-old female admitted with falls states that she thinks it is her drinking. She has 4 fingers of vodka and glass daily for the last 2 months. She states 6 months a day she was drinking almost every day but now its every day. She states that she stopped for 8 years once and stopped for 8 months recently. She has not had withdrawal per her thought. Patient states her leg swelling is diminished markedly and that she like to go home. 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 She reports swelling in the legs shortness of breath smokes 2 packs/day no history of stroke Vitals/I&O/Wt Last Vital Signs Temp 98.1 F 04/08/25 10:53 Pulse 77 04/08/25 13:15 Resp 18 04/08/25 13:12 BP 125/71 04/08/25 10:53 Pulse Ox 94 04/08/25 13:12 O2 Del Method Nasal Cannula 04/08/25 13:12 O2 Flow Rate 4 04/08/25 13:12 04/08/25 04/08/25 04/08/25 06:59 14:59 22:59 Intake Total 480 / 480 Output Total 3000 / 3000 1250 / 1250 Balance -3000 / -3000 -770 / -770 Weight last 48 hrs Weight 78.273 kg Weight 76.799 kg Weight 72.575 kg Weight 72.575 kg Physical Exam Narrative: General Well-developed female in no acute cardiopulmonary stress CV regular rate and rhythm Lungs trace basilar crackles not completely resolved with deep breaths Abdomen positive bowel tones soft nontender Calves 1+ to 2 bilateral pretibial edema no tenderness cords Mentation alert and oriented to person place month and year Urinary Catheter Management: Finn: Cath Placed During This Visit: yes Reason for Continuing Indwelling Catheter: Other Urinary Catheter Date of Insertion: 04/08/25 Urinary Catheter Time of Insertion: 02:34 Data 04/07/25 20:17 04/07/25 20:17 A&P Assessment and plan 1. Acute dyspnea: VQ scan negative Chest x-ray also negative for effusion or infiltrate Breathing improved with diuresis but patient smokes 2 packs/day. She has responded to steroids and nebulizers 2. CHF (congestive heart failure): Patient has had 4 L urine output with 20 mg furosemide IV twice a day and the Finn. Echo shows EF 62% grade 1 diastolic dysfunction Lower extremity edema : Much improved with diuresis and renal function stable replace potassium which is 3.4 3. COPD (chronic obstructive pulmonary disease): Continue Solu-Medrol and nebulizers 4. Smoking addiction: Active smoker; cessation addressed. - Start nicotine patch and provide lozenges. - Advise smoking cessation and continue to encourage. 5. Multiple falls: Three recent falls; imaging without acute fracture; right hip with mild degenerative changes. Treat above conditions. PT assessment. Evaluated by physical therapy and recommended for home health therapy. Patient's admission should have been observation status 6. Alcoholism: [facility] protocol and patient counseled regarding alcohol cessation Plan: Continue diuresis steroids and nebulizers as well as nicotine replacement anticipate discharge tomorrow CODE STATUS: She would like to further discuss with her , full code for now. PDMP PDMP Reviewed: Not Reviewed Attestations Medical Necessity Statement*: Patient remained in the hospital wanted additional midnight with home discharge plan tomorrow Coding Level of Care Code Acute Code for [facility] Fwd Diagnoses Acute dyspnea R06.00 CHF (congestive heart failure) I50.9 COPD (chronic obstructive pulmonary disease) J44.9 Smoking addiction F17.200 Multiple falls R29.6 Alcoholism F10.20 Time Spent (min) 35
[2025-04-08 16:38] LABS: Magnesium 1.7 mg/dL (1.7-2.3)
[2025-04-08] MEDS: LORazepam 1 MG/0.5 ML injection 2 MG IVP ×3 (17:30→22:36)
--- OUTSIDE RECORDS SUMMARY | 2025-04-08 18:46 | XMS_ITS | Encounter Summary ---
Author Organization Done[facility] Address [address] [place] [address] Care Team Providers Care Education Adviser Name Role Phone Manolo Blevins DO Primary Care Provider [phone] Encounter Details Date Type Department Care Team (Late st Contact Info) Description 04/08/2025 Orders Only [facility] Health Information Management [place] [address] [place] [phone] Provider, Abstract NO ADDRESS ON FILE Social History Tobacco Use Types Packs/Day Years Used Date Smoking Tobacco: Every Day Cigarettes 1 110.8 Started: 1969 Passive Smoke Exposure: Current Smokeless Tobacco: Never Alcohol Use Standard Drinks/Week Comments Yes 28 [...] on file 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 Gender Identity Not on file Sexual Orientation Not on file documented as of this encounter Plan of Treatment Not on file documented as of this encounter Procedures Procedure Name Priority Date/Time Associated Diagnosis Comments COMPREHENSIVE METABOLIC PANEL Routine 04/07/2025 10:05 AM CDT documented in this encounter Results * COMPREHENSIVE METABOLIC PANEL (04/07/2025 10:05 AM CDT) Blood us Abstract Provider CHEMISTRY ORDERABLES Final Res ult documented in this encounter Visit Diagnoses Not on filedocumented in this encounter Additional Health Concerns Assessment Noted Time PHQ-9 Depression Total Score: 1 03/04/20 25 8:16 AM CDT documented as of this encounter Care Teams Education Adviser Relationship Specialty Start Date End Date Manolo Blevins DO [address] [phone] PCP - General Family Practice 02/08/24 documented as of this encounter
--- OUTSIDE RECORDS SUMMARY | 2025-04-08 18:46 | XMS_ITS | Clinical Summary ---
Author Organization [facility] Address [address] Schmidn: Epic Prelude ADT RAMIRO JON [address] Care Team Providers Care Member Of The Legislative Assembly Name Role Phone Manolo Blevins DO Primary Care Provider [phone] Allergies Active Allergy Reactions Criticality Noted Date [...] /3 mL (0.083 %) Solution for NebulizationIn dications:Credit Checker micheline obstructive pulmonary disease, unspecified COPD type [...] /3 mL (0.083 %) Solution for NebulizationIn dications:Credit Checker micheline obstructive pulmonary disease, unspecified COPD type (CMS/HCC) Take 3 mL (2.5 mg) by inhalation every 4 hours as needed for Shortness of Breath. 120 mL 5 03/04/20 025 Discontinued Active Problems Problem Noted Date Diagnosed Date Alcohol consumption heavy 08/27/2024 Mass of buttock 08/27/2024 Dislocation of left shoulder joint 12/15/2023 Tremors of nervous system 06/02/2023 Injury, thumb 06/02/2023 Peripheral edema 06/30/2022 Gastroesophageal reflux disease 06/30/2022 Cigarette dependence 05/26/2022 Panic attacks 05/26/2022 Chronic obstructive pulmonary disease 05/26/2022 Encounters Date Type Department Care Team Description 04/08/2025 Orders Only [facility] Health Information Management [place] [address] [place] [address] Provider, Abstract 03/14/2025 Orders Only [address] [phone] Nancy Lamb FNP Chronic obstructive pulmonary disease, unspecified COPD type (CMS/HCC) 03/13/2025 Medication Prior Auth Encounter [facility] Prescription Management Dept [facility] [place] [phone] Valente Ventura, PHARMACIST 03/12/[address] [phone] Nancy Lamb FNP Albuterol 0.083% PA denial 03/05/2025 Refill [facility] [address] [phone] Nancy Lamb FNP 03/05/2025 Results Follow-Up [address] [phone] Nancy Lamb FNP CBC WITH DIFFERENTIAL, BASIC METABOLIC PANEL 03/04/2025 8:00 AM CDT Office Visit [facility] [place] [address] [facility] [address] [place] [phone] Nancy Lamb FNP Encounter for subsequent annual wellness visit (AWV) in Medicare patient (Primary Dx); Chronic obstructive pulmonary disease, unspecified COPD type (CMS/HCC); Panic attacks; Tremors of nervous system; Hypokalemia 03/04/2025 External Device Data [facility] ABSTRACTION Provider, Abstract 01/24/[address] 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 Gender Identity Not on file Sexual Orientation [...] METABOLIC PANEL Routine 04/07/2025 10:05 AM CDT BASIC METABOLIC PANEL Routine 03/04/2025 9:04 AM CDT Hypokalemia CBC WITH DIFFERENTIAL Routine 03/04/2025 9:04 AM CDT Hypokalemia from Last 3 Months Results * COMPREHENSIVE METABOLIC PANEL (04/07/2025 10:05 AM CDT) Blood us Abstract Provider CHEMISTRY ORDERABLES Final Res ult * (ABNORMAL) CBC WITH DIFFERENTIAL (03/04/2025 9:04 [...] [facility] Comment: Test Performed at: [facility] [address] [facility] [place] [address] Elvira Wallace MD Blood 03/04/2025 9:04 AM CDT 03/05/2025 3:18 AM CDT Nancy PALOMARESP HEMATOLOGY ORDERABLES Final R esult [facility] [phone] [facility] [address] [place] [address] * BASIC METABOLIC PANEL (03/04/2025 9:04 AM [...] [facility] Comment: Test Performed at: [facility] [address] [address] Elvira Wallace MD Blood 03/04/2025 9:04 AM CDT 03/05/2025 3:18 AM CDT us Nancy Lamb DEGREASING SOLUTION MIXER CHEMISTRY ORDERABLES Final Re sult [facility] [phone] [facility] [address] [address] [phone] from Last 3 Months Insurance MEDICAID [place] MEDICARE PART A AND B Care Teams Member Of The Legislative Assembly Relationship Specialty Start Date End Date Manolo Blevins DO [address] [place] [phone] PCP - General Family Practice 02/08/24
[2025-04-09] VITALS (7 sets, daily range): BP systolic 132–153; BP diastolic 60–80; PULSE 76–93; RESP 16–18; TEMP 36.6–36.7; O2SAT 88–96
[2025-04-09] MEDS: methylPREDNISolone sod succ 40 mg/mL INJ 30 MG IVP ×2 (02:10→10:57)
[2025-04-09] MEDS: FUROsemide 10 mg/mL SDV 2mL 20 MG IVP (02:11)
[2025-04-09] MEDS: LORazepam 1 MG/0.5 ML injection 2 MG IVP (02:25)
[2025-04-09 05:18] LABS: Hematocrit 50.7 % (36-47); Hemoglobin 16.70 g/dL (11.27-16.99); Mean Corpuscular HGB Conc 32.9 g/dL (30-55); Mean Corpuscular Hemoglobin 32.7 pg (27-33); Mean Corpuscular Volume 99.4 fl (85-98); Nucleated Red Blood Cells % 0 %; Platelet Count 213 10^3/cmm (157-399); Red Blood Count 5.10 10^6/uL (3.85-5.65); White Blood Count 8.34 10^3/uL (3.29-11.43)
[2025-04-09 05:37] LABS: Anion Gap 17.1 (5-19); Blood Urea Nitrogen 9 mg/dL (8-23); Calcium 9.4 mg/dL (8.5-10.5); Carbon Dioxide 34 mmol/L (22-29); Chloride 96 mmol/L (98-107); Creatinine Clr Calc Pharmacy 69.5137; Glucose 155 mg/dL (65-115); Osmolality Calculated 300 mOsm/kg (285-295); Potassium 3.1 mmol/L (3.5-5.1); Sodium 144 mmol/L (136-145)
[2025-04-09] MEDS: CITALOPRAM 10 MG TABLET PO (05:56)
[2025-04-09] MEDS: multivitamin therapeutic Tablet 1 TAB PO (05:56)
[2025-04-09] MEDS: potassium phosphate (mMol PO4) 30 MMOL in sodium chloride 0.9% (100 ml) 100 ML 25 MMOL IV (09:09)
--- NOTE | 2025-04-09 09:21 | PC.CHAP ---
Pastoral Care Encounter/Spiritual Assessment Type of Contact [] Declined coding support specialist visit [] Patient/Family/Request visit [] Outpatient visit [] Follow-up visit [] Physician referral [] Code/Alert [] Routine visit [] Staff referral [] Actively dying [x] Patient sleeping [] Family support [] [] Out of room [] Palliative care [] [] Receiving care in room [] Pre-surgical visit [] Trauma [] Long length of stay [] ICU visit [] Other: Relational/Emotional Strength [] Patient feels connected with others/family/visitors/staff [] Distress [] Loneliness/isolation [] Abandonment Spirituality of Patient [] Person of Xiao [] Attends Moravian of their Xiao [] Believes in Prayer [] Reads Bible or Scientologist materials [] There are Spiritual issues to be addressed [employer] Interventions [] Prayer [] Active listening [] Non-anxious presence [] Spiritual/emotional support [] Crisis/trauma care [] Spiritual counseling [] Bereavement support [] Provided bereavement packet [] Provided Bible/devotional materials [] Provided toy/stuffed animal, coloring book to patient or family member [] Provided Communion [] Anointing/[place] [] Salvation [] Completed spiritual assessment [] Other: Impact on Illness or Injury [] Angry [] Fearful [] Anxious [] Often cries [] Exhaustion [] Unable to work [] Unable to attend lutheran [] Unable to walk/stand [] Unable to read [] Unable to drive [] Unable to eat/drink [] Unable to sleep [] Unable to be with family [] Patient intubated [] Other: Summary Time spent with patient
--- NOTE | 2025-04-09 12:30 | PM.DCS ---
Discharge Providers Date of Admission: 04/08/25 01:45 Date of Discharge: April 09, 2025 Attending Provider at Admission: Angel Gu Attending Provider at Discharge: Can Perry MD Consults: None Primary Care Provider: NORMA Frankel Diagnoses at Discharge Discharge Diagnosis 1. Acute dyspnea: Details from hospital stay: COPD and CHF exacerbation much improved with diuresis steroids nebulizers 2. CHF (congestive heart failure): Details from hospital stay: Patient diuresed 8 L of fluid. Start furosemide 20 mg and potassium chloride 20 mEq as needed weight gain of greater than 3 pounds at home from her current dry weight 3. COPD (chronic obstructive pulmonary disease): Details from hospital stay: Prednisone taper over 8 days. Start home O2 4. Smoking addiction: Details from hospital stay: Patient started on nicotine patch 5. Multiple falls: Details from hospital stay: Patient reports this due to alcohol use states she is more unsteady when she is drinking. 6. Alcoholism: Details from hospital stay: Encouraged to stop drinking and patient's Ed and her agreed to go home and taper alcohol 5 shots of vodka daily for 3 days, 4 shots daily for 3 days, 3 shots daily for 3 days, 2 shots daily for 3 days, 1 shot daily for 3 days and stop Patient started on thiamine as well and a thiamine level was sent Reason for Visit Reason for Visit: , Fall Brief History: Eleni Hanson is a 69 year old woman with a history of chronic obstructive pulmonary disease (COPD), hypertension, and ongoing tobacco use, recently started on home oxygen. Presents with several days of shortness of breath, cough, and lower extremity swelling. Reports orthopnea. Denies chest pain or pressure. Denies fever, nausea, vomiting, or diarrhea. In the emergency department (ED), required 1.5 L/min supplemental oxygen to maintain oxygen saturation at 93%. ED vitals: blood pressure 143/69 mmHg, pulse 72 bpm, respiratory rate 18/min, temperature 98.5?F, oxygen saturation 93% on 1.5 L/min oxygen. ED labs/imaging: complete blood count (CBC) unremarkable; D-dimer elevated at 1.02; comprehensive metabolic panel notable for sodium 143, potassium 3.4, chloride 101, bicarbonate 30, anion gap 15.4, blood urea nitrogen (BUN) 15, creatinine 0.6, glucose 110, calcium 9.2; aspartate aminotransferase (AST), alanine aminotransferase (ALT), total bilirubin, and alkaline phosphatase normal; N-terminal pro?B-type natriuretic peptide (NT-proBNP) 1031; total protein 6.3, albumin 4.1, globulin normal; procalcitonin 0.02; influenza, COVID-19, and respiratory syncytial virus (RSV) nasal swabs negative. Chest X-ray without definitive infiltrate or effusion. Lower extremity venous duplex ultrasound negative for deep vein thrombosis (DVT). Hip and pelvis X-ray without definitive fracture, subluxation, or dislocation; mild degenerative changes in the right hip. Reports three recent falls. Historical note: iodine allergy precluded computed tomography (CT) angiogram in ED; plan discussed for ventilation-perfusion (V/Q) scan to evaluate for pulmonary embolism (PE). Code status discussion held; patient agrees to full resuscitation (not [id number]) at this time and may revisit after discussing with . Hospital Course Hospital Course Patient was admitted and diuresed easily with 20 mg of furosemide twice a day for 2 days she lost 8 L of fluid. Potassium was replaced along with magnesium and phosphorus. Patient had been falling at home and attributed herself to drinking too much. She states she drank 4 fingers of vodka daily and a glass. Patient's Ed came in and states patient drinks three quarters of a glass full of vodka with a splash of Sprite 3 of those a day typically and he estimates her vodka use to be half of 1/5 daily. Patient told me that his March around the and that she knew it is [facility] but did not know the name of the hospital. She knew that president was prescristiane Delgadillo. She knows that she needs to quit drinking and smoking. She intends to use nicotine patch. Patient has been using her 's oxygen at home but will qualify now for her own oxygen at home. Additionally she will be prescribed nebulizers V/Q was negative or low problem for PE Physical Exam Narrative: General Well-developed female in no acute cardiopulmonary stress CV regular rate and rhythm Lungs trace basilar crackles near completely resolved with deep breaths Abdomen positive bowel tones soft nontender Calves trace bilateral pretibial edema no tenderness cords Mentation alert and oriented to person place month and year Neuro patient with tremulous bilateral hands and wrists Urinary Catheter Management: Finn: Cath Placed During This Visit: yes Reason for Continuing Indwelling Catheter: Other Urinary Catheter Date of Insertion: 04/08/25 Urinary Catheter Time of Insertion: 02:34 Discharge Data Studies Completed and Pending Completed Studies During Hospitalization Category Date Time Status XR chest 1V portable [id number] Stat Exams 04/07/25 20:59 Completed XR hip RT 2-3V wo/w pel* [id number] Stat Exams 04/08/25 00:38 Completed NM pulmonary ventilation and perfusion [NM pul vent and Nuc Med 04/08/25 02:17 Completed perfus* [id number]] Routine CV. echo complete* [id number] Routine Ultrasound 04/08/25 02:05 Completed US venous duplex lower extremity RT [CV venous duplex Ultrasound 04/07/25 21:[address] [place] [id number]] Stat Pending at discharge Category Date Time Status Basic Metabolic Panel AM LABS Lab 04/10/25 04:00 Ordered Basic Metabolic Panel AM LABS Lab 04/11/25 04:00 Ordered Complete Blood Count w/Auto AM LABS Lab 04/10/25 04:00 Ordered Complete Blood Count w/Auto AM LABS Lab 04/11/25 04:00 Ordered Sputum Culture and Gram Stain Routine Lab 04/08/25 02:07 Uncollected Vitamin B1 (Thiamine),Blood Routine Lab 04/08/25 16:33 Received Radiology Impressions Chest X-Ray 04/07/25 20:59 IMPRESSION: No definite acute infiltrate or effusion. Venous Duplex 04/07/25 21:30 IMPRESSION: No evidence of deep vein thrombosis. Hip/Pelvis X-Ray 04/08/25 00:38 IMPRESSION: No definite acute fracture, subluxation, dislocation. Mild degenerative changes of right hip. Pulmonary Perfusion Imaging 04/08/25 02:17 IMPRESSION: 1. Low probability for pulmonary embolus. Laboratory Results WBC 8.34 10^3/uL (3.29-11.43) 04/09/25 04:49 RBC 5.10 10^6/uL (3.85-5.65) 04/09/25 04:49 Hgb 16.70 g/dL (11.27-16.99) 04/09/25 04:49 Hct 50.7 % (36-47) H 04/09/25 04:49 MCV 99.4 fl (85-98) H 04/09/25 04:49 MCH 32.7 pg (27-33) 04/09/25 04:49 MCHC 32.9 g/dL (30-55) 04/09/25 04:49 RDW 12.7 % (12.1-15.1) 04/09/25 04:49 Plt Count 213 10^3/cmm (157-399) 04/09/25 04:49 MPV 9.9 fL (7.4-10.4) 04/09/25 04:49 Neut % (Auto) 86.1 % 04/09/25 04:49 Lymph % (Auto) 10.3 % 04/09/25 04:49 Todd % (Auto) 3.1 % 04/09/25 04:49 Eos % (Auto) 0.0 % 04/09/25 04:49 Baso % (Auto) 0.1 % 04/09/25 04:49 Neut # (Auto) 7.18 10^3/uL (1.8-7.7) 04/09/25 04:49 Lymph # (Auto) 0.9 10^3/uL (0.8-4.8) 04/09/25 04:49 Todd # (Auto) 0.3 10^3/uL (0.2-0.9) 04/09/25 04:49 Eos # (Auto) 0.0 10^3/uL (0.0-0.8) 04/09/25 04:49 Baso # (Auto) 0.0 10^3/uL (0.0-0.1) 04/09/25 04:49 Nucleated RBC % (auto) 0 % 04/09/25 04:49 Nucleated RBCs # 0.0 /100WBC 04/09/25 04:49 D-Dimer 1.02 ug/mLFEU (0-0.59) H 04/07/25 21:07 Sodium 144 mmol/L (136-145) 04/09/25 04:49 Potassium 3.1 mmol/L (3.5-5.1) L 04/09/25 04:49 Chloride 96 mmol/L (98-107) L 04/09/25 04:49 Carbon Dioxide 34 mmol/L (22-29) H 04/09/25 04:49 Anion Gap 17.1 (5-19) 04/09/25 04:49 BUN 9 mg/dL (8-23) 04/09/25 04:49 Creatinine 0.6 mg/dL (0.5-0.9) 04/09/25 04:49 GFR Calculation Not Reportable 04/09/25 04:49 Glucose 155 mg/dL (65-115) H 04/09/25 04:49 Calculated Osmolality 300 mOsm/kg (285-295) H 04/09/25 04:49 Calcium 9.4 mg/dL (8.5-10.5) 04/09/25 04:49 Phosphorus 1.9 mg/dL (2.5-4.5) L 04/07/25 20:17 Magnesium 1.7 mg/dL (1.7-2.3) 04/07/25 20:17 Total Bilirubin 0.8 mg/dL (0.15-1.2) 04/07/25 20:17 AST 18 U/L (0-32) 04/07/25 20:17 ALT 8 U/L (0-33) 04/07/25 20:17 Alkaline Phosphatase 87 U/L (35-105) 04/07/25 20:17 Troponin T Baseline 13 ng/L (0-10) H 04/07/25 20:17 Troponin T 120 Minute 12.17 ng/L (0-10) H 04/07/25 22:17 Delta Troponin T -0.83 ABS# (0-10) L 04/07/25 22:17 NT-Pro-B Natriuret Pep 1031 pg/mL (0-125) H 04/07/25 20:17 Total Protein 6.3 g/dL (6.6-8.7) L 04/07/25 20:17 Albumin 4.1 g/dL (3.5-5.2) 04/07/25 20:17 Globulin 2.2 g/dL (1.3-4.6) 04/07/25 20:17 Procalcitonin 0.02 ng/mL (0-0.5) 04/07/25 20:17 Influenza A (PCR) Negative (Negative) 04/07/25 22:22 Influenza Type B (PCR) Negative (Negative) 04/07/25:22 RSV (PCR) Negative (Negative) 10/20/25 22:22 SARS-CoV-2 (PCR) Negative (Negative) 04/07/25 22:22 Vitals Last Vital Signs Temp 97.9 F 04/09/25 11:12 Pulse 93 04/09/25 11:12 Resp 18 04/09/25 11:12 BP 132/73 04/09/25 11:12 Pulse Ox 91 04/09/25 11:12 O2 Del Method Nasal Cannula 04/09/25 11:12 O2 Flow Rate 3 04/09/25 10:38 Discharge Plan Discharge Patient Disposition: Home Health Service Condition: Stable Prescriptions: New nicotine 21 mg/24 hr Patch 24 Hour 1 patch transdermal DAILY Qty: 28 0RF nicotine (polacrilex) 4 mg Lozenge 4 mg mucous membrane Q6H PRN (Reason: Nicotine Cravings) Qty: 24 0RF ipratropium-albuterol 0.5 mg-3 mg(2.5 mg base)/3 mL Solution For Nebulization 3 ml inhalation Q6H.RESP Qty: 180 0RF thiamine mononitrate (vit B1) [Vitamin B-1 (mononitrate)] 100 mg Tablet 100 mg PO DAILY Qty: 90 0RF prednisone 10 mg tablet 10 mg PO DIRECTED Qty: 20 0RF Rx Instructions: 4 daily for 2 days 3 daily for 2 days to daily for 2 days 1 daily for 1 days and stop multivitamin with folic acid [Thera] 400 mcg Tablet 1 tab PO DAILY Qty: 90 0RF furosemide [Lasix] 20 mg tablet 20 mg PO DAILY PRN (Reason: weight gain) Qty: 30 0RF potassium chloride [Klor-Con M20] 20 mEq tablet,ER particles/crystals 20 meq PO DAILY PRN (Reason: when taking furosemide only) Qty: 30 0RF Continued famotidine 40 mg tablet 40 mg PO BEDTIME cholecalciferol (vitamin D3) [Vitamin D3] 125 mcg (5,000 unit) Tablet 125 unit PO DAILY citalopram 10 mg tablet 10 mg PO DAILY hydroxyzine HCl 10 mg tablet 10 mg PO TID ibuprofen 800 mg tablet 800 mg PO TID PRN (Reason: Pain) metoprolol succinate 25 mg tablet extended release 24 hr 1 mg PO DAILY Trelegy Ellipta 100-62.5-25 mcg blister with device 1 ea INHALATION DAILY Discharge Order = DC NOW: Discharge Order (Routine); Ordered 04/09/25 Ordered By: Can Perry Other Ambulatory Orders: DME: Oxygen (Order) Location: None Selected Ordered By: Can Perry Referrals: [facility] [Outside] [facility] [Outside] Shanice Lamb FNP [Primary Care Provider, [facility]] - 04/11/25 11:00 am Referral Note: APPOINTMENT AT [place] [facility] WITH SHANICE GREEN Patient Instructions: COPD - Emphysema, Heart Failure (GEN), How to Stop Smoking (ED), Cigarette Smoking and Your Health (GEN), Alcohol Withdrawal (GEN), Alcohol Dependence (GEN), Opioid Safety, Patient Portal & Luke Instructions Activity Restrictions/Additional Instructions: Weigh yourself on arrival home and this is your dry weight. If you gain more than 3 pounds water weight then you should take your furosemide 20 mg and potassium 20 mEq together until your weight is back down to your dry weight You need to stop smoking and do so by wearing the nicotine patch as prescribed and using the nicotine gum up to 4 pieces a day as needed to prevent smoking. Do not continue on nicotine replacement long-term as nicotine is still bad for your blood vessels and risk for coronary artery disease. Smoking is worse as it has a nicotine and damage to your lungs but continuing on nicotine vape or patches long-term is also not good Stop drinking alcohol by tapering off. As I have discussed with you and add drink 5 shots of vodka split out through the day i.e. every 4 hours for 3 days then 4 shots a day split out through the day for 3 days then 3 shots a day for 3 days then 2 shots a day for 3 days then 1 shot a day for 3 days and stop Use home oxygen as needed to keep oxygen saturations around 92% Discharge Attestations Time Spent in Discharge Care*: greater than 30 min Time Spent in Smoking Cessation: 3 to 10 minutes Patient is counseled that she needs to quit smoking because of her COPD exacerbation and that it worsens heart failure as well. She voices understanding also present at bedside Quality Metrics Clinical Quality Measures [ No reported AMI, CVA or VTE this stay] Coding Level of Care Code 71579 Diagnoses Acute dyspnea R06.00 CHF (congestive heart failure) I50.9 COPD (chronic obstructive pulmonary disease) J44.9 Smoking addiction F17.200 Multiple falls R29.6 Alcoholism F10.20 Time Spent (min) 40
[2025-04-13 13:05] LABS: Vitamin B1 (Thiamine),Blood 106 nmol/L (78-185)
== END 2025-04-09 13:25 | disposition home health service (06) ==
LOC: ER 04-08 01:22 → MEDSURG 04-08 01:42
PROVIDERS: Admitting Provider Internal Medicine; Emergency Provider Emergency Medicine; PCP Nurse Practitioner Family; Visit Provider Internal Medicine
DX: R06.00 Dyspnea, unspecified (principal); I50.9 Heart failure, unspecified; I11.0 Hypertensive heart disease with heart failure; J44.9 Chronic obstructive pulmonary disease, unspecified; R29.6 Repeated falls; F17.200 Nicotine dependence, unspecified, uncomplicated; F10.20 Alcohol dependence, uncomplicated; Z99.81 Dependence on supplemental oxygen
CPT/HCPCS: 36415; 51702; 71045; 73502; 78014; 80048; 80053; 83735; 83880; 84100; 84145; 84425; 84484; 85025; 85378; 87637; 93005; 93306; 93971; 94640; 94760; 96365; 96372; 96375; 97116; 97161; 99285; A9540; A9567; G0378; J1650; J1938; J2060; J2919; J9999